=== PATIENT | female | born 1955 | race Caucasian/White ===

== ENCOUNTER → 2017-11-09 07:23 | Outpatient (CLI) | payer OTHER, SELFPAY ==
[2017-11-09 08:28] LABS: AST(SGOT) 22 U/L (15-37); Alanine Aminotransfer ALT/SGPT 25 U/L (13-56); Albumin, Serum 3.7 g/dL (3.2-5.0); Alkaline Phosphatase 92 U/L (45-117); Anion Gap 6 (5-15); BUN 22 mg/dL (7-18); BUN/Creat Ratio 26.6 RATIO (10-20); Calcium,Total 9.2 mg/dL (8.5-10.1); Chloride 107 mmol/L (98-107); Cholesterol 147 mg/dL (200); Creatinine, Serum 0.83 mg/dL (0.55-1.02); EST Glomerular Filtration Rate 74 mL/min (>60); Est Glom Filt Rate - Afr Amer 90 mL/min (>60); Globulin 3.6 g/dL (2.2-4.2); Glucose 103 mg/dL (74-106); High Density Lipoprotein 45 mg/dL; Potassium 4.7 mmol/L (3.5-5.1); Protein, Total 7.3 g/dL (6.4-8.2); Sodium Level 141 mmol/L (136-145); Triglycerides 119 mg/dL; Very Low Density Lipoprotein 24 mg/dL (5-40)
== END ==
PROVIDERS: Family Provider Family Medicine; PCP Family Medicine; Referring Provider Family Medicine; Visit Provider Family Medicine
DX: I10 Essential (primary) hypertension (principal); R10.9 Unspecified abdominal pain
CPT/HCPCS: 36415; 80053; 80061

== ENCOUNTER → 2017-11-10 08:56 | Outpatient (CLI) | payer OTHER, SELFPAY ==
--- NOTE | 2017-11-10 08:59 | US_ITS ---
STUDY: ABDOMINAL ULTRASOUND - RIGHT UPPER QUADRANT REASON FOR VISIT: Female, 62 years old. Right upper quadrant fullness and discomfort, particularly after meals. TECHNIQUE: Ultrasound evaluation of the right upper quadrant was performed with real-time and static perez-scale imaging. TECHNICAL QUALITY: Adequate. COMPARISON: None. FINDINGS: Liver: The liver measures 14.7 cm. There is increased echogenicity consistent with fatty infiltration. The bile ducts are within normal limits. There is hepatic color flow. The direction of portal flow is hepatopetal. There is no demonstrated mass lesion. Gallbladder: Normal distended gallbladder. The gallbladder wall measures 2.2 mm. There is a negative sonographic Rivers's sign. There is no pericholecystic fluid. There are multiple echogenic structures within the gallbladder, consistent with multiple gallstones. One of the largest is 11 mm in diameter. Common Bile Duct (C.B.D.): The common bile duct measures 2.5 mm. Pancreas: Normal size of the head, body and tail of the pancreas. There is normal echogenicity of the pancreas. There is no demonstrated pancreatic mass or cyst. Right Kidney: Normal size of the right kidney. The right kidney measures 12.4 x 7.0 x 4.5 cm. Normal renal cortex. The right cortex measures 1.4 cm. 1.7 x 1.5 1.2 cm cortical cyst is seen at the anterolateral upper pole. There is no right hydronephrosis. US/Gallbladder IMPRESSION: 1. Gallstones. No mural thickening of the gallbladder nor pericholecystic fluid indicate acute cholecystitis. No sign of bile duct obstruction. 2. Fatty infiltration of the liver. 3. Unremarkable pancreas. 4. 1.7 cm cortical cyst in the anterolateral upper pole of the right kidney. Electronically Signed: Bart Varma MD at 19:56 EDT , Service support ,
== END ==
PROVIDERS: Family Provider Family Medicine; PCP Family Medicine; Referring Provider Family Medicine; Visit Provider Family Medicine
DX: R10.9 Unspecified abdominal pain (principal)
CPT/HCPCS: 76705

== ENCOUNTER 2017-12-21 11:22 | Day surgery (SDC) | payer OTHER, SELFPAY ==
[2017-12-17 10:35] LABS: Hematocrit 38.7 % (37-47); Mean Corpuscular Volume 90.2 fL (81-99); Mean Platelet Vol. 10.9 fl (6.2-12.0); Platelet Count 290 K/mm3 (150-450); RBC Distribution Width SD 42.5 fl (35.1-43.9); Red Blood Count 4.29 M/mm3 (4.2-5.4); White Blood Count 5.8 K/mm3 (4.4-11.0)
[2017-12-17 10:37] LABS: Scan Indicated on CBC? Y/N NO
[2017-12-17 10:44] LABS: Prothrombin Time (Protime)PT. 13.4 SECONDS (11.7-14.9)
--- NOTE | 2017-12-21 | GALL_PTH ---
PATIENT: FRANK LAMB LOC: [facility] [place] U#:[id number] AGE/SX: 62/F ROOM: RE12/21/[address]: Dr. Elias Treadwell MD : 1955 BED: DIS: 12/21/2017 SPEC #: [id number] RECD: 12/21/17 15:10 STATUS: JONATHON MALIK #: [id number] JESSICA: 12/21/17 00:[address]: Elias Treadwell DEPT: SURGICAL PATHOLOGY RECD BY: Rocky Bhatti ENTERED: 12/21/17 15:10 SP TYPE: MAURICIO BRADLEY DR: DO Dr. Warren Guerrier MD Tissues: Gallbladder, NOS Procedures: Surgery Specimen Level III HEADER OPERATION: Laparoscopic, cholecystectomy with IOC PRE-OP DIAGNOSIS: Calculus of gallbladder, cholecystitis TISSUE SUBMITTED: Gallbladder MICROSCOPIC DIAGNOSIS Gallbladder: Chronic cholecystitis and cholelithiasis. SJ:sp 12/22/17 MICROSCOPIC DESCRIPTION Slides are reviewed. GROSS DESCRIPTION Received is one container labeled with the patient's name and designated gallbladder. The specimen consists of a gallbladder measuring 9 cm in length and up to 4 cm in diameter. The external surface is pink-rabago, smooth and glistening for the most part. Focally it is granular, hemorrhagic and contains cautery artifact. The gallbladder contains green-yellow mucoid bile and multiple irregular black stones measuring in aggregate 2 x 1 x 0.5 cm and 0.3 to 0.8 cm in greatest dimension. The mucosa is bile-stained and without any mass lesions. The gallbladder wall measures up to 0.2 cm in thickness. Rewards Consultant sections from the gallbladder and the cystic duct are submitted in one cassette. / BETTY:maddison 12/21/17 TC: 3 CPT: 95705
[2017-12-21 11:45] VITALS: BP 155/84; PULSE 79; RESP 16; TEMP 37.1; O2SAT 99; BMI 31.5
--- NOTE | 2017-12-21 13:41 | RAD_ITS ---
STUDY: INTRAOPERATIVE CHOLANGIOGRAM. REASON FOR EXAM: Female, 62 years old. Laparoscopic cholecystectomy. FLUOROSCOPY TIME (if supplied): (11.5 seconds) minutes/seconds TECHNIQUE: An intraoperative quadrant was performed by the surgeon. 3 images were obtained. COMPARISON: None. FINDINGS: The visualized intrahepatic biliary ducts are unremarkable. The common bile duct is unremarkable. No intraluminal filling defect is seen. There is free flow of contrast into the duodenum. RAD/Cholangiogram/ O R,Initial IMPRESSION: Unremarkable intraoperative cholangiogram. Electronically Signed: Brendon Grubbs MD at 14:56 EST Tel [phone], Service support ,
[2017-12-21] MEDS: Bupiv/Epi 0.5% Mpf 30 ML Vial (14:00)
--- NOTE | 2017-12-21 14:10 | OP.PCM_ITS ---
Problem List (1) Biliary colic Status: Acute Report of Operation Date of Procedure: 12/21/17 Pre-Operative Diagnosis: Biliary colic and cholelithiasis Post-Operative Diagnosis: Same Surgery/Procedure Performed:: Laparoscopic cholecystectomy with cholangiogram Specimen's removed: Gallbladder and contents Description of Procedure: After obtaining informed consent patient was brought back to the operating room. General anesthesia was induced. The abdomen was prepped and draped in usual sterile fashion. A small midline incision was made superior to the umbilicus and deepened to the level of fascia. The fascia was elevated and incised. Next the peritoneum was elevated and incised in the same fashion. Finger sweep was performed and the Mueller trocar was placed into the abdomen. The balloon was inflated. The abdomen was inflated to 15 mmHg. Next a camera was introduced into the abdomen and the abdomen was inspected. Next under direct visualization three 5-mm ports were placed one subxiphoid and 2 subcostal. Next the gallbladder was elevated and retracted toward the right shoulder. The peritoneum was stripped from the gallbladder. The infundibulum was located and retracted laterally. Next the triangle of Calot was dissected and the cystic duct and cystic artery were identified. Cholangiograms were performed. The Meyer catheter was used to clamp across the infundibulum and the needle was inserted into the gallbladder. Under fluoroscopy contrast was instilled into the gallbladder and the common duct, cystic duct as well as proximal hepatic ducts were identified. There was good filling of the duodenum. There were no filling defects noted in the common bile duct. The clamp was removed as well as the needle and the infundibulum was grasped once more. Three hemolock clips were placed across the cystic duct. The cystic duct was then divided leaving 2 clips on the stump. The cystic artery was clipped and divided in the same f ashion. The hook cautery was then used to take the gallbladder off of the gallbladder bed. There was some small leakage of bile from the gallbladder during removal from the liver bed. Hemostasis was obtained. Gallbladder fossa was irrigated and no active bleeding or bile leakage was noted. Next the camera switched to a 5 mm camera and introduced in the subxiphoid port. An Endopouch bag was placed through the umbilical port and the gallbladder was placed into it. The gallbladder was then removed through the umbilical incision. The camera was then reinserted through the umbilical port. The gallbladder fossa was inspected once more and noted to be hemostatic with no leaking bile. The abdomen was suctioned dry the 5 mm ports were removed under direct visualization. The umbilical port was then removed and the air was removed from the abdomen. Next using an 0 Vicryl suture the umbilical fascia was closed in a [id number] fashion. The umbilical port site was irrigated local anesthetic was administered to all the incisions. All the incisions were closed subcuticular 4-0 Monocryl sutures followed by Steri-Strips and dressings. The patient was awoken and taken to PACU in stable condition. - Admit VTE Documentation VTE Mechan Device Prophylaxis: SCD's
--- NOTE | 2017-12-21 14:12 | PCM.DC.GB ---
Discharge Diet: Light diet - advance as tolerated Discharge Activity: Return to Normal Activity, May Not Drive - for 2-3 days or while taking narcotic pain medicataions., - - Do not drive, work heavy equipment or sign legal documents for 24 hours. May shower in (days): 1 - with the bandage in place. Lifting Restrictions: 20 lbs for 2 weeks Additional Activity Instructions:: Pain medication may cause nausea. You should typically eat light foods as you take your pain medications. Pain medication may also cause constipation. If this is a problem for you, please discuss with your doctor. Call your doctor if your incision/area has: Continuous Slow Oozing, Sudden Increased Bleeding, Increased Pain/ Swelling, Increased Redness, Foul Smelling Discharge, Fever of 101 or Higher Call your doctor if you observe: Fever of 101 or Higher Suture Line Care: Avoid Pulling/Pushing, Avoid Pinching/Bending Additional Dressing/Incision Instructions:: Leave operative bandaids on for 2 days. When you remove dressing, leave Steri-Strips on until your follow-up appointment, or until the Steri-Strips fall off on their own. Allergies/Adverse Reactions: Allergies sulfamethoxazole [From Bactrim] Allergy (Verified 12/21/17 11:45) Hives trimethoprim [From Bactrim] Allergy (Verified 12/21/17 11:45) Hives morphine Adverse Reaction (Verified 12/21/17 11:45) Low blood pressure Medications to take at Discharge lisinopril 20 mg tablet 20 mg PO DAILY #90 tab 11/05/17 simvastatin 20 mg tablet 20 mg PO QHS #90 tab 11/05/17 omeprazole 20 mg tablet,delayed release 20 mg PO DAILY #30 tab 11/23/17 Hydrocodone/Acetaminophen [[place] 5-325 Tablet] 1 - 2 tab PO Q6H PRN PRN 7 Days #30 tablet 12/21/17 The following prescriptions were given: Hydrocodone/Acetaminophen [[place] 5-325 Tablet] 1 - 2 tab PO Q6H PRN PRN 7 Days #30 tablet PRN Reason: Pain Orders to be completed after discharge: 12 Lead EKG [[facility]] Time Frame: 12/17/17, Location: None Selected Primary Care Physician: Jeancarlos Sanchez DO [Primary Care Provider] - Test Results: Test results from this visit will be discussed in further detail at your follow-up appointment, if applicable. Please Follow Up With: Elias Treadwell MD When: Please call to schedule 2 week follow up appointment. [phone]
[2017-12-21 14:21] VITALS: BP 132/80; BP 155/84; PULSE 81; RESP 16; TEMP 36.2; O2SAT 99
[2017-12-21 14:30] VITALS: BP 119/65; BP 155/84; PULSE 73; RESP 16; O2SAT 94
[2017-12-21 14:45] VITALS: BP 108/56; BP 155/84; PULSE 54; RESP 16; O2SAT 96
[2017-12-21 14:55] VITALS: BP 155/84; BP 99/59; PULSE 60; RESP 16; TEMP 36.3; O2SAT 97
[2017-12-21] MEDS: HYDROcodone Bitartrate/Apap 5/325 Tablet PO (15:20)
[2017-12-21 17:17] VITALS: BP 114/59; BP 155/84; PULSE 57; RESP 16; TEMP 36.8; O2SAT 95
== END 2017-12-21 17:27 | disposition home or self-care (01) ==
LOC: SDC 11:23 → AC 11:24
PROVIDERS: Anesthesiology; Family Provider Family Medicine; PCP Family Medicine; Referring Provider Surgery; Visit Provider Surgery
PROC: (CPT 47610; principal; 2017-12-21 12:40)
DX: K80.10 Calculus of gallbladder with chronic cholecystitis without obstruction (principal); I10 Essential (primary) hypertension; E78.00 Pure hypercholesterolemia, unspecified; K21.9 Gastro-esophageal reflux disease without esophagitis; F32.9 Major depressive disorder, single episode, unspecified; Z79.899 Other long term (current) drug therapy; Z87.891 Personal history of nicotine dependence
CPT/HCPCS: 47563; 36415; 74300; 76000; 85027; 85610; 85730; 88304; J7120; J2405

== ENCOUNTER → 2018-09-07 10:07 | Outpatient (CLI) | payer OTHER, SELFPAY ==
[2018-09-07 09:48] VITALS: BMI 31.5
[2018-09-07 12:57] LABS: ALB/GLOB Ratio 1.1 RATIO (0.9-2.4); AST(SGOT) 17 U/L (15-37); Alanine Aminotransfer ALT/SGPT 29 U/L (13-56); Albumin, Serum 3.9 g/dL (3.2-5.0); Alkaline Phosphatase 95 U/L (45-117); Anion Gap 8 (5-15); BUN 20 mg/dL (7-18); BUN/Creat Ratio 26.5 RATIO (10-20); Calcium,Total 9.1 mg/dL (8.5-10.1); Chloride 107 mmol/L (98-107); Cholesterol 178 mg/dL (200); Creatinine, Serum 0.75 mg/dL (0.55-1.02); EST Glomerular Filtration Rate 82 mL/min (>60); Est Glom Filt Rate - Afr Amer 100 mL/min (>60); Globulin 3.6 g/dL (2.2-4.2); Glucose 94 mg/dL (74-106); High Density Lipoprotein 51 mg/dL; Potassium 4.5 mmol/L (3.5-5.1); Protein, Total 7.5 g/dL (6.4-8.2); Sodium Level 140 mmol/L (136-145); Triglycerides 104 mg/dL; Very Low Density Lipoprotein 21 mg/dL (5-40)
== END ==
PROVIDERS: Family Provider Family Medicine; PCP Family Medicine; Visit Provider Family Medicine
DX: I10 Essential (primary) hypertension (principal); E78.00 Pure hypercholesterolemia, unspecified
CPT/HCPCS: 36415; 80053; 80061

== ENCOUNTER → 2018-09-30 07:57 | Outpatient (CLI) | payer OTHER, SELFPAY ==
[2018-09-07 09:48] VITALS: BMI 31.5
--- NOTE | 2018-09-30 08:01 | BI_ITS ---
MAMMOGRAPHY - BILATERAL SCREENING 3-D TOMOSYNTHESIS REASON FOR EXAM: Female, 63 years old. Bilateral Screening 3-D tomosynthesis PERTINENT HISTORY: Paternal aunt with breast cancer.. TECHNIQUE: 2-D mammograms and 3-D Tomosynthesis of the breast (s) were performed. CAD was performed. COMPARISON: 02/25/2017, 12/19/2015, 10/25/2013. FINDINGS: The breast composition is composed of scattered fibroglandular density. Scattered benign calcifications are seen. No dense spiculated masses or suspicious microcalcifications are identified. No architectural distortion is identified. There is no skin thickening or retraction. There has been no significant change since the prior study. BI/SCREEN MAMM (CAD) W/MAIA BILAT IMPRESSION: No mammographic signs of malignancy. Routine yearly mammograms recommended. ASSESSMENT CATEGORY: BIRADS Category 2: Benign. A letter regarding these results will be sent to the patient by the facility within 30 days. FOLLOW UP RECOMMENDATION: Yearly follow up mammogram recommended. (A) Approximately 10% of breast cancers are not detected by mammography. A normal mammogram should not delay biopsy of a clinically suspicious abnormality. Electronically Signed: Roni Bui MD at 15:44 EDT Tel [phone], Service support ,
== END ==
PROVIDERS: Family Provider Family Medicine; PCP Family Medicine; Referring Provider Family Medicine; Visit Provider Family Medicine
DX: Z12.31 Encounter for screening mammogram for malignant neoplasm of breast (principal); Z80.3 Family history of malignant neoplasm of breast
CPT/HCPCS: 77063; 77067

== ENCOUNTER → 2018-12-01 07:50 | Outpatient (CLI) | payer OTHER, SELFPAY ==
[2018-11-11 10:03] VITALS: BMI 31.5
--- NOTE | 2018-12-01 07:52 | RAD_ITS ---
STUDY: X-RAY - LUMBAR SPINE REASON FOR EXAM: Female, 63 years old. Low back pain on and off for one and a half year more severe within the last 3 months. Right leg pain. TECHNIQUE: 3 view(s) of the lumbar spine were obtained. COMPARISON: None FINDINGS: Normal lumbar lordosis. There is scoliosis of the lumbar spine, convexity to the left. There is a normal alignment of the vertebrae. There is diffuse demineralization with multi-level endplate spondylosis. There is mild narrowing of disc space from L3-L4 to L5-S1. There is no demonstrated fracture. There is facet hypertrophy at L4-L5 and L5-S1. There is atherosclerotic calcification of the abdominal aorta without a demonstrated aneurysm. RAD/Lumbar Spine 2 or 3 Views IMPRESSION: Diffuse osteopenia along with degenerative disease, more significant from L3-L4 to L5-S1. No acute fracture or spondylolisthesis. Electronically Signed: Bere Moore MD at 0:28 EDT , Service support ,
== END ==
PROVIDERS: Family Provider Family Medicine; PCP Family Medicine; Referring Provider Family Medicine; Visit Provider Family Medicine
DX: M54.5 Low back pain (principal)
CPT/HCPCS: 72100

== ENCOUNTER → 2018-12-07 13:18 | Outpatient (CLI) | payer OTHER, SELFPAY ==
[2018-11-11 10:03] VITALS: BMI 31.5
--- NOTE | 2018-12-07 13:28 | BD_ITS ---
STUDY: DUAL ENERGY X-RAY ABSORPTIOMETRY / DXA REASON FOR EXAM: Female, 63 years old. Early menopause. Loss of height. TECHNIQUE: Bone Mineral Density (BMD) measurements of lumbar spine and bilateral hips were obtained. COMPARISON: Comparison is made with prior examination dated November 28, 2014. FINDINGS: Lumbar Spine (L1-L4): g/cm2 (0.925) / T-score (-2.1) / Z-score (-0.7) Findings are suggestive of osteopenia with a high fracture risk. Left Femur Total: g/cm2 (0.910) / T-score (-0.8) / Z-score (0.3) Left Femoral Neck: g/cm2 (0.865) / T-score (-1.2) / Z-score (0.1) Right Femur Total: g/cm2 (0.901) / T-score (-0.8) / Z-score (0.3) Right Femoral Neck: g/cm2 (0.878) / T-score (-1.1) / Z-score (0.2) The T-Scores on the most recent prior examination were: Lumbar Spine (L1-L4): There has been worsening of bone density since the previous examination. Left Femur Total: which represents a worsening of 3.6%. Right Femur Total: which represents a worsening of 4.8%. BD/Dexa Bone Density Study IMPRESSION: The patient is considered osteopenic as outlined below according to World Kian Organization (WHO) criteria with a high fracture risk. There has been worsening of bone density since the previous examination. Reference Information: The T-score is the number of standard deviations above or below the standard which is normal for young adults at their peak bone mineral density. The World Health Organization (WHO) interprets the T-scores as follows: Above -1 Normal bone density Between -1 and -2.5 Osteopenia Equal to / or below -2.5 Osteoporosis As a practical clinical guideline, osteopenia may be graded as follows: Mild -1 through -1.5 Moderate -1.6 through -2.0 Severe -2.1 through -2.4 The Z-score is the number of standard deviations above or below age-matched controls. A Z-score of less than -1.5 would be considered abnormal. References: 1. NIH Osteoporosis and Related Bone Diseases http://www.osteo.org 2. International Society for Clinical Densitometry http://www.iscd.org 3. National Osteoporosis Foundation http://www.nof.org Electronically Signed: Brendon Grubbs, at 15:42 EDT , Service support ,
== END ==
PROVIDERS: Family Provider Family Medicine; PCP Family Medicine; Referring Provider Family Medicine; Visit Provider Family Medicine
DX: M81.0 Age-related osteoporosis without current pathological fracture (principal)
CPT/HCPCS: 77080

== ENCOUNTER → 2019-09-13 12:19 | Outpatient (CLI) | payer OTHER, SELFPAY ==
[2019-09-13 11:55] VITALS: BMI 31.5
[2019-09-13 15:19] LABS: Vitamin D,25 Hydroxy 22.2 ng/mL
[2019-09-13 15:23] LABS: ALB/GLOB Ratio 1.2 RATIO (0.9-2.4); AST(SGOT) 20 U/L (15-37); Alanine Aminotransfer ALT/SGPT 31 U/L (13-56); Albumin, Serum 4.2 g/dL (3.2-5.0); Alkaline Phosphatase 74 U/L (45-117); Anion Gap 3 (5-15); BUN 18 mg/dL (7-18); BUN/Creat Ratio 21.5 RATIO (10-20); Calcium,Total 9.2 mg/dL (8.5-10.1); Chloride 109 mmol/L (98-107); Cholesterol 165 mg/dL (200); Creatinine, Serum 0.84 mg/dL (0.55-1.02); EST Glomerular Filtration Rate 73 mL/min (>60); Est Glom Filt Rate - Afr Amer 88 mL/min (>60); Globulin 3.5 g/dL (2.2-4.2); Glucose 92 mg/dL (74-106); High Density Lipoprotein 51 mg/dL; Potassium 4.6 mmol/L (3.5-5.1); Protein, Total 7.7 g/dL (6.4-8.2); Sodium Level 140 mmol/L (136-145); Triglycerides 92 mg/dL; Very Low Density Lipoprotein 18 mg/dL (5-40)
== END ==
PROVIDERS: PCP Family Medicine; Referring Provider Family Medicine; Visit Provider Family Medicine
DX: I10 Essential (primary) hypertension (principal); E78.00 Pure hypercholesterolemia, unspecified; M54.5 Low back pain; M81.0 Age-related osteoporosis without current pathological fracture
CPT/HCPCS: 36415; 80053; 80061; 82306

== ENCOUNTER → 2019-09-15 07:59 | Outpatient (CLI) | payer OTHER, SELFPAY ==
[2019-09-13 12:27] VITALS: BMI 31.5
--- NOTE | 2019-09-15 08:02 | RAD_ITS ---
STUDY: X-RAY - LUMBAR SPINE REASON FOR EXAM: Female, 64 years old. CHRONIC LBP, NKI TECHNIQUE: 5 view(s) of the lumbar spine were obtained. COMPARISON: 12/01/2018 FINDINGS: Normal lumbar lordosis. There is a mild levoscoliosis. There is a normal alignment of the vertebrae. There is multilevel endplate spondylosis of the lumbar vertebrae. Mild disc space narrowing. There is no demonstrated fracture. There is atherosclerotic calcification of the abdominal aorta without a demonstrated aneurysm. RAD/L/S Spine Min 4 Views IMPRESSION: Degenerative changes of the spine, as detailed above. Mild levoscoliosis Electronically Signed: Bart Blunt MD at 17:17 EDT , Service support ,
== END ==
PROVIDERS: PCP Family Medicine; Referring Provider Family Medicine; Visit Provider Family Medicine
DX: M54.5 Low back pain (principal)
CPT/HCPCS: 72110

== ENCOUNTER → 2019-12-01 09:10 | Outpatient (CLI) | payer OTHER, SELFPAY | PROVIDERS: PCP Family Medicine; Referring Provider Family Medicine; Visit Provider Family Medicine | DX: U07.1 COVID-19 (principal) | CPT/HCPCS: 87635; C9803; U0003 ==

== ENCOUNTER → 2020-04-16 08:37 | Outpatient (CLI) | payer OTHER, SELFPAY ==
[2020-04-03 11:06] VITALS: BMI 33.8
--- NOTE | 2020-04-16 08:39 | BI_ITS ---
MAMMOGRAPHY - BILATERAL SCREENING REASON FOR EXAM: Female, 64 years old. Routine annual screening examination. PERTINENT HISTORY: AUNT AGE 40S BILAT MOLES MARKED TECHNIQUE: Digital bilateral breast maia (3D mammographic acquisition) in the CC and MLO projections. 2-D mediolateral oblique (MLO) and craniocaudad (CC) views of both breasts were obtained. CAD: Full Field Digital Mammography with Computer Added Detection was performed. COMPARISON: 09/30/2018 and 12/19/2015 FINDINGS: Breast Composition: There are scattered areas of fibroglandular density. There are no dominant masses or suspicious calcifications. No other significant abnormalities are identified. BI/SCRN MAMM (CAD)W/MAIA BILAT IMPRESSION: Stable bilateral screening mammogram. Yearly follow-up mammogram recommended. (A) ASSESSMENT CATEGORY: BIRADS Category 2: Benign. A letter regarding these results will be sent to the patient by the facility within 30 days. Approximately 10% of breast cancers are not detected by mammography. A normal mammogram should not delay biopsy of a clinically suspicious abnormality. [id number] Electronically Signed: Ervin Irene MD at 16:43 EST Tel , Service support ,
== END ==
PROVIDERS: PCP Family Medicine; Referring Provider Family Medicine; Visit Provider Family Medicine
DX: Z12.31 Encounter for screening mammogram for malignant neoplasm of breast (principal)
CPT/HCPCS: 77063; 77067

== ENCOUNTER → 2020-05-11 10:27 | Outpatient (CLI) | payer MEDICARE, OTHER, SELFPAY ==
[2020-05-10 14:46] VITALS: BMI 33.6
== END ==
PROVIDERS: PCP Family Medicine; Referring Provider Family Medicine; Visit Provider Family Medicine
DX: Z20.828 Contact with and (suspected) exposure to other viral communicable diseases (principal)
CPT/HCPCS: 87635; U0002

== ENCOUNTER → 2020-10-02 12:27 | Outpatient (CLI) | payer MEDICARE, OTHER, SELFPAY ==
[2020-10-05 15:44] LABS: HPV Reflexed? NOT INDICATED
== END ==
PROVIDERS: PCP Family Medicine; Referring Provider Family Medicine; Visit Provider Family Medicine
DX: Z01.419 Encounter for gynecological examination (general) (routine) without abnormal findings (principal)
CPT/HCPCS: 88175; G0145

== ENCOUNTER → 2020-12-11 09:22 | Outpatient (CLI) | payer MEDICARE, OTHER, SELFPAY ==
--- NOTE | 2020-12-11 09:30 | BD_ITS ---
STUDY: DUAL ENERGY X-RAY ABSORPTIOMETRY / DXA REASON FOR EXAM: Female, 65 years old. Osteopenia. TECHNIQUE: Bone Mineral Density (BMD) measurements of lumbar spine and bilateral hips were obtained. COMPARISON: Comparison is made with prior study 12/07/2018. FINDINGS: Lumbar Spine (L1-L4): g/cm2 (0.808) / T-score (-1.9) / Z-score (-0.2) Findings are suggestive of osteopenia with a moderate fracture risk. Left Femur Total: g/cm2 (0.898) / T-score (-0.4) / Z-score (0.9) Left Femoral Neck: g/cm2 (0.689) / T-score (-1.4) / Z-score (0.1) Right Femur Total: g/cm2 (0.878) / T-score (-0.5) / Z-score (0.7) Right Femoral Neck: g/cm2 (0.695) / T-score (-1.4) / Z-score (0.1) The T-Scores on the most recent prior examination were: Lumbar Spine (L1-L4): There has been improvement of bone density since the previous examination. Left Femur Total: which represents an improvement of 6%. Right Femur Total: which represents an improvement of 4.8%. BD/Dexa Bone Density Study IMPRESSION: The patient is considered osteopenic as outlined below according to World Kian Organization (WHO) criteria with a moderate fracture risk. There has been improvement of bone density since the previous examination. Reference Information: The T-score is the number of standard deviations above or below the standard which is normal for young adults at their peak bone mineral density. The World Health Organization (WHO) interprets the T-scores as follows: Above -1 Normal bone density Between -1 and -2.5 Osteopenia Equal to / or below -2.5 Osteoporosis As a practical clinical guideline, osteopenia may be graded as follows: Mild -1 through -1.5 Moderate -1.6 through -2.0 Severe -2.1 through -2.4 The Z-score is the number of standard deviations above or below age-matched controls. A Z-score of less than -1.5 would be considered abnormal. References: 1. NIH Osteoporosis and Related Bone Diseases www osteo.org 2. International Society for Clinical Densitometry www iscd.org 3. National Osteoporosis Foundation www nof.org Electronically Signed: Brendon Grubbs MD at 15:44 EDT , Service support ,
== END ==
PROVIDERS: PCP Family Medicine; Referring Provider Family Medicine; Visit Provider Family Medicine
DX: M81.0 Age-related osteoporosis without current pathological fracture (principal)
CPT/HCPCS: 77080

== ENCOUNTER 2021-02-21 09:14 | Outpatient (CLI) | payer MEDICARE, OTHER, SELFPAY | END 2021-02-21 23:59 | disposition short-term general hospital (02) | LOC: LABSPEC 09:16 | PROVIDERS: PCP Family Medicine; Referring Provider Physician Assistant; Visit Provider Physician Assistant | DX: U07.1 COVID-19 (principal) | CPT/HCPCS: 87635; U0003; U0005 ==

== ENCOUNTER 2021-04-02 10:36 | Outpatient (CLI) | payer MEDICARE, OTHER, SELFPAY ==
[2021-04-02 13:00] LABS: AST(SGOT) 15 U/L (15-37); Alanine Aminotransfer ALT/SGPT 26 U/L (13-56); Albumin, Serum 3.8 g/dL (3.2-5.0); Alkaline Phosphatase 75 U/L (45-117); Anion Gap 7 (5-15); BUN 19 mg/dL (7-18); BUN/Creat Ratio 26.5 RATIO (10-20); Calcium,Total 8.8 mg/dL (8.5-10.1); Chloride 108 mmol/L (98-107); Cholesterol 160 mg/dL (200); Creatinine, Serum 0.72 mg/dL (0.55-1.02); EST Glomerular Filtration Rate 87 mL/min (>60); Est Glom Filt Rate - Afr Amer 105 mL/min (>60); Globulin 3.7 g/dL (2.2-4.2); Glucose 99 mg/dL (74-106); High Density Lipoprotein 47 mg/dL; Potassium 4.6 mmol/L (3.5-5.1); Protein, Total 7.5 g/dL (6.4-8.2); Sodium Level 140 mmol/L (136-145); Triglycerides 103 mg/dL; Very Low Density Lipoprotein 21 mg/dL (5-40)
== END 2021-04-02 23:59 | disposition home or self-care (01) ==
LOC: BIMLAB 10:38
PROVIDERS: PCP Family Medicine; Referring Provider Family Medicine; Visit Provider Family Medicine
DX: I10 Essential (primary) hypertension (principal)
CPT/HCPCS: 36415; 80053; 80061

== ENCOUNTER 2021-05-21 10:13 | Outpatient (CLI) | payer MEDICARE, OTHER, SELFPAY ==
--- NOTE | 2021-05-21 10:15 | BI_ITS ---
MAMMOGRAPHY - BILATERAL SCREENING REASON FOR EXAM: Female, 65 years old. Routine annual screening examination. PERTINENT HISTORY: Aunt with breast cancer. TECHNIQUE: Digital bilateral breast maia (3D mammographic acquisition) in the CC and MLO projections. 2-D mediolateral oblique (MLO) and craniocaudad (CC) views of both breasts were obtained. CAD: Full Field Digital Mammography with Computer Added Detection was performed. COMPARISON: Comparison is made with prior study 04/16/2020 and 09/30/2018. FINDINGS: Breast Composition: There are scattered areas of fibroglandular density. There are no dominant masses or suspicious calcifications. No other significant abnormalities are identified. There has been no significant change since the prior study. BI/SCRN MAMM (CAD)W/MAIA BILAT IMPRESSION: Stable bilateral screening mammogram. Yearly follow-up mammogram recommended. (A) ASSESSMENT CATEGORY: BIRADS Category 1: Negative. A letter regarding these results will be sent to the patient by the facility within 30 days. Approximately 10% of breast cancers are not detected by mammography. A normal mammogram should not delay biopsy of a clinically suspicious abnormality. [id number] Electronically Signed: Brendon Grubbs MD at 11:50 EDT ,
== END 2021-05-21 23:59 | disposition home or self-care (01) ==
LOC: OPBI 10:14
PROVIDERS: PCP Family Medicine; Referring Provider Family Medicine; Visit Provider Family Medicine
DX: Z12.31 Encounter for screening mammogram for malignant neoplasm of breast (principal)
CPT/HCPCS: 77063; 77067

== ENCOUNTER → 2022-05-23 | Outpatient (CLI) | payer MEDICARE, OTHER, SELFPAY ==
[2022-05-23 12:52] LABS: Anion Gap 4 (5-15); BUN 21 mg/dL (7-18); BUN/Creat Ratio 27.6 RATIO (10-20); Calcium,Total 9.1 mg/dL (8.5-10.1); Chloride 108 mmol/L (98-107); Creatinine, Serum 0.76 mg/dL (0.55-1.02); EST Glomerular Filtration Rate 81 mL/min (>60); Est Glom Filt Rate - Afr Amer 98 mL/min (>60); Glucose 92 mg/dL (74-106); Potassium 4.6 mmol/L (3.5-5.1); Sodium Level 139 mmol/L (136-145)
== END | disposition home or self-care (01) ==
LOC: BIMLAB 11:38
PROVIDERS: PCP Family Medicine; Referring Provider Nurse Practitioner Family; Visit Provider Nurse Practitioner Family
DX: I10 Essential (primary) hypertension (principal)
CPT/HCPCS: 36415; 80048

== ENCOUNTER 2022-07-18 00:13 | Emergency (ER) | payer MEDICARE, OTHER, SELFPAY ==
[2022-07-18 00:14] VITALS: BP 187/83; PULSE 75; RESP 16; TEMP 36; O2SAT 96; BMI 34.1
--- NOTE | 2022-07-18 00:23 | EDS_ITS ---
HPI History of Present Illness Chief Complaint: Overdose [facility] Medical History Chronic headaches Depression High blood pressure High cholesterol Influenza A Home Medications denosumab 60 mg/mL subcutaneous syringe (Prolia) 60 mg subcut [id number] #1 mL 03/16/20 [Rx Last Taken Unknown] fluticasone propionate 50 mcg/actuation nasal spray,suspension (Flonase Allergy Relief) 2 spray intranasal DAILY PRN congestion, allergies #16 grams 12/04/20 [Rx Last Taken Unknown] simvastatin 20 mg tablet 20 mg PO QHS #90 tabs 10/03/21 [Rx Last Taken Unknown] pantoprazole 40 mg tablet,delayed release 40 mg PO QHS #90 tabs 02/14/22 [Rx Last Taken Unknown] sertraline 100 mg tablet See Rx Instructions .Route .COMPLEX #90 tabs 04/02/22 [Rx Last Taken Unknown] carvedilol 3.125 mg tablet (Coreg) 3.125 mg PO BID #60 tabs 05/09/22 [Rx Last Taken Unknown] lisinopril 40 mg tablet 40 mg PO DAILY #90 tabs 05/09/22 [Rx Last Taken Unknown] lorazepam 1 mg tablet 1 mg PO QHS PRN anxiety #90 tabs 07/17/22 [Rx Last Taken Unknown] Allergy/AdvReac Type Severity Reaction Status Date / Time sulfamethoxazole Allergy Hives Verified 07/18/22 00:18 [From Bactrim] trimethoprim [From Bactrim] Allergy Hives Verified 07/18/22 00:18 morphine AdvReac Low blood Verified 07/18/22 00:18 pressure Family History Mother Diabetes Heart disease Hypertension Myocardial infarction Father Myocardial infarction Brother Hypertension Diabetes Sister Diabetes Hypertension Grandfather Alzheimer's dementia Cancer Grandmother Fabiana Gehrigs disease Grandfather Heart disease Aunt Breast cancer Surgical History History of colonoscopy History of gynecologic surgery History of orthopedic surgery History of tubal ligation Social History Smoking Status: Former smoker alcohol intake: never substance use type: does not use what type of physical activity do you participate in: none EXAM Physical Exam Const Vital Signs: 07/18/22 00:14 07/18/22 00:17 Temperature 96.8 F L Temperature Source Temporal Pulse Rate 75 Respiratory Rate 16 Respiratory Effort Normal Non-Labored Respiratory Pattern Normal Blood Pressure 187/83 H Blood Pressure Mean 117 Pulse Ox 96 Oxygen Delivery Method Room Air [facility] N[place] Medical decision making narrative: HISTORY OF PRESENT ILLNESS: 67-year-old female here with concern for accidental overdose. Patient states she took one 40 mg pill of lisinopril approximately 11:45 PM. This approximately 30 minutes prior to arrival. She states she is concerned that she may have overdosed on her lisinopril. She denies any syncope, lightheadedness, fatigue, chest pain, shortness of breath. There is no suicidal ideation, homicidal ideation endorsed REVIEW OF SYSTEMS: Pertinent positives: None Pertinent negatives: Lightheadedness, fatigue, chest pain, syncope PHYSICAL EXAM: Nursing triage notes reviewed, Vital signs reviewed Constitutional: please see mdm HENT: MMM Eyes: Pupils equal round and reactive to light, Extraocular muscles intact Neck: No stridor, no JVD, full neck ROM Lungs: Clear to auscultation, No wheezing or rales. No increased work of breathing, no conversational dyspnea, no accessory muscle use, no nasal flaring. No respiratory distress noted Heart: Regular rate and rhythm, No murmurs, No rubs and No gallops, 2+ distal pulses (radial, femoral, posterior tibial) in all extremities Abdomen: Soft, there is no tenderness, rigidity, rebound or guarding, no obvious peritoneal signs, no palpable pulsatile abdominal masses, no auscultated abdominal bruit : No CVAT Extremities: No edema Neuro: No focal neurological deficits, cranial nerves II through XII intact, 5/5 strength in all extremities. Intact sensation to light touch in all extremities, 2+ reflexes bilateral patella tendons. Normal gait. No ataxia. Skin: No rash or lesions noted MEDICAL DECISION MAKING: Chief Complaint: Accidental overdose External records reviewed: No recent ED visits or hospitalizations Factors affecting care: Hypertension, hyperlipidemia Social determinants of health: Poor health literacy History obtained from others: None Consults: None ALL IMAGES (IF OBTAINED) HAVE BEEN PERSONALLY REVIEWED AND INTERPRETED BY MYSELF. [facility] Narrative: Patient was hemodynamically stable, afebrile, nontoxic-appearing. No signs of hypotension or other side effect from lisinopril. Peak lisinopril onset of action per Caty comp is 1 hour. Duration is 24 hours. Half time is 12 hours. L D50 is greater than 20,000 mg per [email or web address]. Patient is hemodynamically stable here and is appropriate for discharge home. I did consult poison control. Poison control recommended no acute intervention necessary. Can discharge with poison control instructions. The patient and/or family, caregivers express understanding. The patient and/or family, caregivers agrees with the plan. Total critical care time today provided was at least 0 minutes. This excludes separately billable procedures. Critical care time (if documented) is secondary to the patient having high probability of clinically significant/life threatening deterioration in the patient's condition which required my urgent intervention. Shared decision making: I will have a discussion with the patient and or visitors regarding risk/benefits of further testing or admission. They will be made aware of of the risk/benefits inherent in this decision they will be given the opportunity to voice understanding. Discharge Plan Triage Chief Complaint: Overdose ED Provider: Yaya Mariscal Dx/Rx/DC Orders Clinical Impression: Accidental overdose Instructions: ED Accidental Ingestion ... Prescriptions: No Action Prolia 60 mg/mL syringe 60 mg SC [id number] Qty: 1 2RF fluticasone propionate [Flonase Allergy Relief] 50 mcg/actuation spray,suspension 2 spray intranasal DAILY PRN (Reason: congestion, allergies) Qty: 16 2RF Rx Instructions: administer into each nostril simvastatin 20 mg tablet 20 mg PO QHS Qty: 90 3RF pantoprazole 40 mg tablet,delayed release (DR/EC) 40 mg PO QHS Qty: 90 0RF sertraline 100 mg tablet See Rx Instructions .ROUTE .COMPLEX Qty: 90 0RF Dose Instruction: TAKE 1 AND 1/2 TABLET ORALLY DAILY FOR DEPRESSION AT BEDTIME Rx Instructions: TAKE 1 AND 1/2 TABLET ORALLY DAILY FOR DEPRESSION AT BEDTIME carvedilol [Coreg] 3.125 mg tablet 3.125 mg PO BID Qty: 60 2RF Rx Instructions: must administer with a meal/food lisinopril 40 mg tablet 40 mg PO DAILY Qty: 90 3RF lorazepam 1 mg tablet 1 mg PO QHS PRN (Reason: anxiety) Qty: 90 0RF Primary Care Provider: Jeancarlos Sanchez Referrals: Jeancarlos Sanchez, [Primary Care Provider] - Activity Restrictions/Additional Instructions: Thank you for trusting us with your care today! Please take all medicine as prescribed. If you have a question about a future ingestion or accidental overdose please call poison control at [phone] for initial instruction about how to manage the situation. Please return to the emergency department if your symptoms change or worsen. Specifically if you develop lightheadedness, fatigue, chest pain, palpitations, shortness of breath Please follow with your primary care physician for further outpatient evaluation and management. Disposition Disposition: Home, Self Care
[2022-07-18 01:20] VITALS: BP 133/67
== END 2022-07-18 01:34 | disposition home or self-care (01) ==
PROVIDERS: Emergency Provider Emergency Medicine; PCP Family Medicine; Visit Provider Emergency Medicine
DX: T46.4X1A Poisoning by angiotensin-converting-enzyme inhibitors, accidental (unintentional), initial encounter (principal); I10 Essential (primary) hypertension; E78.00 Pure hypercholesterolemia, unspecified; Z79.899 Other long term (current) drug therapy; Z87.891 Personal history of nicotine dependence
CPT/HCPCS: 99282

== ENCOUNTER 2022-08-02 11:28 | Emergency (ER) | payer MEDICARE, OTHER, SELFPAY ==
[2022-08-02 11:28] VITALS: BP 137/87; PULSE 88; RESP 14; TEMP 36.5; O2SAT 96; BMI 32.1
--- NOTE | 2022-08-02 12:00 | ED.VIS.GI ---
HPI HPI - GI History of Present Illness Chief Complaint: Diarrhea Narrative Narrative: 67-year-old female presenting with diarrhea. She has had this for a couple of days. She has some abdominal cramping and is fairly diffuse. She also admits to some dyspepsia. She does not think she is eating anything out of the ordinary. She feels like she has something viral. She denies cough, nasal congestion, rhinorrhea. She has not any fevers. No urinary or vaginal complaints. She states she can eat and does not have any difficulty but she has not been eating because every time she eats she has diarrhea. No recent antibiotic use. [facility] Medical History Chronic headaches Depression High blood pressure High cholesterol Influenza A Home Medications denosumab 60 mg/mL subcutaneous syringe (Prolia) 60 mg subcut [id number] #1 mL 03/16/20 [Rx Last Taken Unknown] fluticasone propionate 50 mcg/actuation nasal spray,suspension (Flonase Allergy Relief) 2 spray intranasal DAILY PRN congestion, allergies #16 grams 12/04/20 [Rx Last Taken Unknown] simvastatin 20 mg tablet 20 mg PO QHS #90 tabs 10/03/21 [Rx Last Taken Unknown] pantoprazole 40 mg tablet,delayed release 40 mg PO QHS #90 tabs 02/14/22 [Rx Last Taken Unknown] sertraline 100 mg tablet See Rx Instructions .Route .COMPLEX #90 tabs 04/02/22 [Rx Last Taken Unknown] carvedilol 3.125 mg tablet (Coreg) 3.125 mg PO BID #60 tabs 05/09/22 [Rx Last Taken Unknown] lisinopril 40 mg tablet 40 mg PO DAILY #90 tabs 05/09/22 [Rx Last Taken Unknown] lorazepam 1 mg tablet 1 mg PO QHS PRN anxiety #90 tabs 07/17/22 [Rx Last Taken Unknown] ondansetron 4 mg disintegrating tablet 4 mg PO Q8H PRN PRN Nausea #20 tabs 08/02/22 [Rx Last Taken Unknown] Allergy/AdvReac Type Severity Reaction Status Date / Time sulfamethoxazole Allergy Hives Verified 08/02/22 11:29 [From Bactrim] trimethoprim [From Bactrim] Allergy Hives Verified 08/02/22 11:29 morphine AdvReac Low blood Verified 08/02/22 11:29 pressure Family History Mother Diabetes Heart disease Hypertension Myocardial infarction Father Myocardial infarction Brother Hypertension Diabetes Sister Diabetes Hypertension Grandfather Alzheimer's dementia Cancer Grandmother Fabiana Gehrigs disease Grandfather Heart disease Aunt Breast cancer Surgical History History of colonoscopy History of gynecologic surgery History of orthopedic surgery History of tubal ligation Social History Smoking Status: Former smoker alcohol intake: never substance use type: does not use what type of physical activity do you participate in: none ROS ROS ED Review of Systems ROS Unobtainable: Denies due to encephalopathy Constitutional Constitutional ED: Denies chills or fever(s) ENT ENT ED: Denies rhinorrhea or sore throat Cardiovascular Cardiovascular: Denies chest pain or palpitations Respiratory/Chest Respiratory/Chest: Denies cough or dyspnea Gastrointestinal Gastrointestinal: Reports diarrhea; Denies abdominal pain or melena Genitourinary Genitourinary ED: Denies dysuria or hematuria Musculoskeletal Musculoskeletal: Denies arthralgias or back pain Integumentary Denies abscess or Abrasions Neurologic Neurologic: Denies headache(s) or paresthesias Psychiatric Psychiatric: Denies anxiety or depression Endocrine Endocrinology: Denies polydipsia or polyphagia EXAM Physical Exam Const Vital Signs: 08/02/22 11:28 Temperature 97.7 F L Temperature Source Oral Pulse Rate 88 Respiratory Rate 14 Blood Pressure 137/87 H Blood Pressure Mean 103 Pulse Ox 96 Oxygen Delivery Method Room Air Positive well nourished General Appearance ED: NAD; Negative for pallor HEENT Reports moist mucous membranes normocephalic and atraumatic Resp normal respiratory effort and clear to auscultation bilaterally Auscultation: Negative for rales, rhonchi or wheezes Cardio regular rate and regular rhythm GI non-tender and non-distended Back/Spine no CVA tenderness Neuro CN's II-XII intact bilaterally Sensorium / Orientation: alert, oriented to person, oriented to place and oriented to time Psych mental status grossly normal and thought process normal Skin no wounds General Skin Exam: Negative for jaundice or pallor MDM MDM MDM Narrative Medical decision making narrative: Patient presenting with diarrhea. She does not have any significant abdominal pain. This is likely viral. Differential includes electrolyte abnormalities, dehydration, anemia. I ordered a stool study. CBC to assess white blood cell count, hemoglobin, platelets. CMP to assess liver function, renal function, electrolytes. Lipase to assess for pancreatitis. Patient medicated with a liter of normal saline and given a GI cocktail for her dyspepsia. She states she does not want anything for nausea or pain. Her CBC and CMP are unremarkable. Lipase is negative. She was unable to provide a stool sample in the 3 hours and 30 minutes that she was here. I suggested to her that this is likely viral in either way. I gave her Zofran for home and recommended she keep staying hydrated. I recommended a bland diet. Return precautions were discussed. Impression: 1. Diarrhea Lab Data Labs: Laboratory Results - last 24 hr 08/02/22 08/02/22 12:10 12:10 WBC 6.5 RBC 4.53 Hgb 12.6 Hct 39.2 MCV 86.5 MCH 27.8 MCHC 32.1 RDW Std Deviation 41.1 RDW Coeff of Viktor 13.1 Plt Count 288 MPV 10.4 Sodium 136 Potassium 3.5 Chloride 108 H Carbon Dioxide 21.0 Anion Gap 7 BUN 19 H Creatinine 0.79 Estim Creat Clear Calc 53.09 Est GFR (MDRD) Af Amer 94 Est GFR (MDRD) Non-Af 77 BUN/Creatinine Ratio 24.1 H Glucose 116 H Calcium 9.0 Magnesium 2.2 Total Bilirubin 0.40 AST 21 ALT 29 Alkaline Phosphatase 76 Total Protein 7.5 Albumin 3.7 Globulin 3.8 Albumin/Globulin Ratio 1.0 Lipase 43 Discharge Plan Triage Chief Complaint: Diarrhea ED Provider: Naeem Jeronimo Dx/Rx/DC Orders Instructions: ED Diarrhea, Viral (Adult) Prescriptions: New ondansetron 4 mg tablet,disintegrating 4 mg PO Q8H PRN PRN (Reason: Nausea) Qty: 20 0RF No Action Prolia 60 mg/mL syringe 60 mg SC [id number] Qty: 1 2RF fluticasone propionate [Flonase Allergy Relief] 50 mcg/actuation spray,suspension 2 spray intranasal DAILY PRN (Reason: congestion, allergies) Qty: 16 2RF Rx Instructions: administer into each nostril simvastatin 20 mg tablet 20 mg PO QHS Qty: 90 3RF pantoprazole 40 mg tablet,delayed release (DR/EC) 40 mg PO QHS Qty: 90 0RF sertraline 100 mg tablet See Rx Instructions .ROUTE .COMPLEX Qty: 90 0RF Dose Instruction: TAKE 1 AND 1/2 TABLET ORALLY DAILY FOR DEPRESSION AT BEDTIME Rx Instructions: TAKE 1 AND 1/2 TABLET ORALLY DAILY FOR DEPRESSION AT BEDTIME carvedilol [Coreg] 3.125 mg tablet 3.125 mg PO BID Qty: 60 2RF Rx Instructions: must administer with a meal/food lisinopril 40 mg tablet 40 mg PO DAILY Qty: 90 3RF lorazepam 1 mg tablet 1 mg PO QHS PRN (Reason: anxiety) Qty: 90 0RF Primary Care Provider: Jeancarlos Sanchez Referrals: Jeancarlos Sanchez, [Primary Care Provider] - Disposition Disposition: Home, Self Care
[2022-08-02] MEDS: 0.9% Normal Saline 1,000 ML 1000 ML IV (12:08)
[2022-08-02 12:23] LABS: Hematocrit 39.2 % (37-47); Hemoglobin 12.6 g/dL (12.0-15.0); Mean Corp Hgb Conc 32.1 g/dL (32-36); Mean Corpuscular Hgb 27.8 pg (27.0-32.0); Mean Corpuscular Volume 86.5 fL (81-99); Mean Platelet Vol. 10.4 fl (6.2-12.0); Platelet Count 288 K/mm3 (150-450); RBC Distribution Width CV 13.1 % (11.6-14.6); RBC Distribution Width SD 41.1 fl (35.1-43.9); Red Blood Count 4.53 M/mm3 (4.2-5.4); White Blood Count 6.5 K/mm3 (4.4-11.0)
[2022-08-02] MEDS: Mag Hydrox/Al Hydrox/Simeth 30 ML UDC PO (12:33)
[2022-08-02 12:34] LABS: AST(SGOT) 21 U/L (15-37); Alanine Aminotransfer ALT/SGPT 29 U/L (13-56); Albumin, Serum 3.7 g/dL (3.2-5.0); Alkaline Phosphatase 76 U/L (45-117); Anion Gap 7 (5-15); BUN 19 mg/dL (7-18); BUN/Creat Ratio 24.1 RATIO (10-20); Chloride 108 mmol/L (98-107); Creatinine, Serum 0.79 mg/dL (0.55-1.02); EST Glomerular Filtration Rate 77 mL/min (>60); Est Glom Filt Rate - Afr Amer 94 mL/min (>60); Estimated Creatinine Clearance 53.09 ml/min; Globulin 3.8 g/dL (2.2-4.2); Glucose 116 mg/dL (74-106); Lipase 43 U/L (13-75); Magnesium 2.2 mg/dL (1.6-2.6); Potassium 3.5 mmol/L (3.5-5.1); Protein, Total 7.5 g/dL (6.4-8.2); Sodium Level 136 mmol/L (136-145)
[2022-08-02 13:28] VITALS: RESP 16
== END 2022-08-02 14:59 | disposition home or self-care (01) ==
PROVIDERS: Emergency Provider Student in an Organized Health Care Education/Training Program; PCP Family Medicine; Visit Provider Student in an Organized Health Care Education/Training Program
DX: R19.7 Diarrhea, unspecified (principal); Z87.891 Personal history of nicotine dependence; E78.00 Pure hypercholesterolemia, unspecified; R10.9 Unspecified abdominal pain
CPT/HCPCS: 80053; 83690; 83735; 85027; 87506; 96360; 96361; 99283; J7030; A4216

== ENCOUNTER → 2022-08-13 | Outpatient (CLI) | payer MEDICARE, OTHER, SELFPAY ==
[2022-08-14 16:09] LABS: Calprotectin, Stool 43 ug/g (0-120)
[2022-08-18 15:07] LABS: Pancreatic Elastase, Fecal 330 (>200)
== END | disposition home or self-care (01) ==
LOC: LABSPEC 10:48
PROVIDERS: PCP Family Medicine
DX: R19.7 Diarrhea, unspecified (principal); R14.0 Abdominal distension (gaseous)
CPT/HCPCS: 82653; 83993

== ENCOUNTER → 2022-08-18 | Outpatient (CLI) | payer MEDICARE, OTHER, SELFPAY ==
--- NOTE | 2022-08-18 17:58 | CT_ITS ---
INDICATION: abdominal pain, unintentional weight loss EXAMINATION: CT ABDOMEN AND PELVIS WITH CONTRAST - CT Abdomen And Pelvis W/ Contrast Injection TECHNIQUE: Helically acquired images were obtained of the abdomen and pelvis following IV contrast. A radiation dose optimization technique was used for this scan. IV Contrast dosage and agent: 100 mL Isovue-370 Oral contrast: Redicat. COMPARISON: November 10, 2017 abdominal ultrasound. FINDINGS: LOWER CHEST: Lung bases are clear. No cardiomegaly or pericardial effusion. LIVER: Homogeneous mild hepatomegaly. No focal mass. GALLBLADDER AND BILIARY TREE: Cholecystectomy. . No intra- or extrahepatic biliary ductal dilation. PANCREAS: No ductal ectasia or surrounding inflammation. Scattered 2 to 3 mm hypodense foci are seen along the pancreatic body and tail. SPLEEN: Normal size without focal cystic or solid mass. ADRENAL GLANDS: No nodules. KIDNEYS AND URETERS: Right renal 1.8 cm cyst and left renal 1.1 cm cyst, no specific imaging follow-up required. Normal renal size and position. No hydronephrosis. PERITONEUM: No ascites or free air. No other fluid collection. BOWEL: Minimal hiatal hernia. No acute gastric finding. No small bowel distention or focal wall thickening. Normal appendix. Distal colonic diverticulosis without evidence of diverticulitis. LYMPH NODES: No enlarged mesenteric or retroperitoneal lymph nodes. VESSELS: Aortic atherosclerosis without ectasia or dissection.. URINARY BLADDER: Unremarkable. REPRODUCTIVE ORGANS: Unremarkable uterus and right ovary. Surgically absent left ovary. ABDOMINAL WALL: No discrete abdominal or pelvic wall hernia. BONES: No lytic or blastic abnormality. Levocurvature of the lumbar spine with moderate spondylosis and leftward angulation. Small posterior disc protrusion L3-4 and minimal posterior disc protrusion L4-5 with bilateral facet arthropathy, together causing mild spinal canal and moderate bilateral neural foraminal stenosis. CT/Abdomen/Pelvis WITH Contrast IMPRESSION: Indeterminate 2 to 3 mm cystic foci along the pancreatic body and tail may represent invagination of fat or cystic mass. Recommend pancreatic MRI when clinically able. No evidence of other abdominal mass or adenopathy.. Distal colonic diverticulosis without evidence of diverticulitis. Hepatomegaly. Minimal hiatal hernia. Lower lumbar spondylosis. Electronically Signed: Timo Alexis MD at 5:59 EDT ,
== END | disposition home or self-care (01) ==
LOC: CT 17:55
PROVIDERS: PCP Family Medicine; Referring Provider Internal Medicine; Visit Provider Internal Medicine
DX: R10.13 Epigastric pain (principal); R63.4 Abnormal weight loss
CPT/HCPCS: 74177; Q9967

== ENCOUNTER → 2022-08-27 | Outpatient (CLI) | payer MEDICARE, OTHER, SELFPAY ==
--- NOTE | 2022-08-27 11:14 | MRI_ITS ---
Examination: MRI of the abdomen without and with intravenous contrast administration. INDICATION: Pancreatic lesion. TECHNIQUE: Multiplanar multisequence MRI of the abdomen was obtained pre and post intravenous administration of 12 mL of Clariscan. COMPARISON: CT dated August 18, 2022 FINDINGS: The lung bases are clear. There is diffuse signal dropout throughout the liver on the out of phase images consistent with fatty infiltration. There is hepatomegaly. The gallbladder is surgically absent. The spleen is within normal limits. Within the body and tail of the pancreas there are 3.0, 3.3 and 5.0 mm round foci that demonstrates signal dropout on the out of phase images and no enhancement consistent with intercalated fat. There is no pancreatic ductal dilatation. The adrenal glands are within normal limits. There are bilateral renal cysts. The stomach is within normal limits. The visualized loops of small bowel and colon are grossly unremarkable. There are degenerative changes of the lumbar spine. MRI/MRI Abd WITH and W/O Contrast IMPRESSION: Fatty infiltration of the liver associated with hepatomegaly. Foci of intercalated fat within the pancreas. Bilateral renal cysts. Degenerative changes of the lumbar spine. Electronically Signed: Paulette Valladares MD at 9:31 EDT ,
== END | disposition home or self-care (01) ==
PROVIDERS: PCP Family Medicine; Referring Provider Internal Medicine; Visit Provider Internal Medicine
DX: K86.9 Disease of pancreas, unspecified (principal)
CPT/HCPCS: 74183; A9575; A4216

== ENCOUNTER → 2022-12-29 | Outpatient (CLI) | payer MEDICARE, OTHER, SELFPAY ==
--- NOTE | 2022-12-29 15:22 | RAD_ITS ---
STUDY: X-RAY - LEFT FOOT CLINICAL: Female, 67 years old. Foot bruising and burning. TECHNIQUE: 3 view(s) of the foot. COMPARISON: None. FINDINGS: Osteopenia. Small inferior calcaneal spur. Mild arthrosis of the midfoot. Normal TMT joints. Mild arthrosis of the MTP and IP joints. Normal soft tissues. RAD/Foot min 3 Views IMPRESSION: Osteopenia, calcaneal spur and mild osteoarthritic changes. No acute abnormality or erosive changes Electronically Signed: Sergio Rea MD at 15:54 EST ,
== END | disposition home or self-care (01) ==
LOC: RAD 15:16
PROVIDERS: PCP Family Medicine; Referring Provider Internal Medicine; Visit Provider Internal Medicine
DX: M79.672 Pain in left foot (principal)
CPT/HCPCS: 73630

== ENCOUNTER 2023-08-05 13:35 | Emergency (ER) | payer MEDICARE, OTHER, SELFPAY ==
[2023-08-05 13:36] VITALS: BP 159/77; PULSE 77; RESP 16; TEMP 36.4; O2SAT 98; BMI 32.6
[2023-08-05 13:37] VITALS: BP 159/77; PULSE 77; RESP 16; TEMP 36.4; O2SAT 98
[2023-08-05 14:24] LABS: Absolute Lymphocyte Count 1.53 X10^3/uL (0.83-4.51); Absolute Neutrophil Count 3.9 X10^3/uL (2.0-7.7); Basophil# 0.07 X10^3/uL; Basophil% 1.1 % (0-1); Eosinophil# 0.11 X10^3/uL; Eosinophils% 1.8 % (0-5); Hematocrit 36.6 % (37-47); Hemoglobin 11.5 g/dL (12.0-15.0); Lymphocyte # 1.53 X10^3/ul (0.83-4.51); Lymphocyte % 24.8 % (19-41); Mean Corp Hgb Conc 31.4 g/dL (32-36); Mean Corpuscular Volume 89.3 fL (81-99); Mean Platelet Vol. 11.1 fl (6.2-12.0); Monocyte% 8.1 % (0-10); NRBC Flagged by Analyzer 0 % (0-5); Neutrophil # 3.94 X10^3/uL (2.7-7.7); Neutrophil % 63.9 % (47-70); Platelet Count 314 K/mm3 (150-450); RBC Distribution Width CV 12.4 % (11.6-14.6); RBC Distribution Width SD 40.4 fl (35.1-43.9); White Blood Count 6.2 K/mm3 (4.4-11.0)
--- NOTE | 2023-08-05 14:30 | CT_ITS ---
STUDY: CT ABDOMEN AND PELVIS WITH CONTRAST REASON FOR EXAM: Female, 68 years old. Right flank pain and right lower quadrant pain. RADIATION DOSAGE (If Supplied By Facility): CTDIvol = ( 15.62 ) mGy, DLP = ( 1118.83 ) mGycm TECHNIQUE: Transaxial images were obtained from the dome of the diaphragm to the symphysis pubis without oral contrast. IV 100mL Isovue-300 was administered. Sagittal and coronal images were reconstructed. Individualized dose optimization techniques were used for this CT. COMPARISON: Comparison is made with prior study dated August 18, 2022. FINDINGS: The visualized lung bases are unremarkable. Coronary artery calcification. There is decreased attenuation of the liver consistent with steatosis. The patient is status post cholecystectomy. Normal spleen. Stable tiny subcentimeter hypodensity is seen in the pancreas. Normal bilateral adrenal glands. Stable 1.8 cm cyst in the upper pole of the right kidney. Normal left kidney. Normal visualized stomach. Normal small intestine. There is diverticulosis, with thickening of the colon wall, and pericolonic inflammation changes consistent with acute diverticulitis. The appendix is visualized and appears normal. There is diffuse atherosclerotic calcification of the abdominal aorta and its major visceral branches, without a demonstrated aneurysm. Normal inferior vena cava. Normal retroperitoneum. Normal urinary bladder. Normal abdominal wall. There are diffuse degenerative changes of the visualized lumbar spine. CT/Abdomen/Pelvis W IV Cont ONLY IMPRESSION: Sigmoid diverticulosis with evidence of noncomplicated acute sigmoid diverticulitis. Fatty infiltration of the liver. Status post cholecystectomy. Electronically Signed: Brendon Grubbs MD at 15:18 EDT ,
--- NOTE | 2023-08-05 14:30 | ED.VIS.GI ---
HPI HPI - GI History of Present Illness Chief Complaint: Flank Pain Narrative Narrative: 68-year-old female presenting with abdominal pain. She states on Thursday it started around her umbilicus and is slowly gone to her right lower quadrant. Patient states that she is urinating without dysuria or hematuria but when she urinates she seems to get relief. She denies fever at home. Patient with history of cholecystectomy, ex lap, ectopic , tubal ligation. Patient denies vaginal complaints. She has had some loose stools over the weekend. PFSH PFSH Medical History Influenza A High cholesterol High blood pressure Chronic headaches Depression Home Medications ?Medication ?Instructions ?Recorded ?Last Taken ?Type carvedilol 3.125 mg tablet (Coreg) 3.125 mg PO DAILY #90 tabs 10/29/22 Unknown Rx lisinopril 40 mg tablet 40 mg PO DAILY #90 tabs 10/29/22 Unknown Rx lorazepam 1 mg tablet 1 mg PO QHS PRN anxiety #90 tabs 10/29/22 Unknown Rx pantoprazole 40 mg tablet,delayed 40 mg PO QHS #90 tabs 10/29/22 Unknown Rx release simvastatin 20 mg tablet 20 mg PO QHS #90 tabs 10/29/22 Unknown Rx sertraline 100 mg tablet 100 mg PO DAILY #90 tabs 04/28/23 Unknown Rx amoxicillin 875 mg-potassium 1 tab PO BID #24 tabs 08/05/23 Unknown Rx clavulanate 125 mg tablet Allergy/AdvReac Type Severity Reaction Status Date / Time sulfamethoxazole (From Allergy Hives Verified 08/05/23 13:38 Bactrim) trimethoprim (From Bactrim) Allergy Hives Verified 08/05/23 13:38 morphine AdvReac Low blood Verified 08/05/23 13:38 pressure Family History Mother Diabetes Heart disease Hypertension Myocardial infarction Father Myocardial infarction Brother Hypertension Diabetes Sister Diabetes Hypertension Grandfather Alzheimer's dementia Cancer Grandmother Fabiana Gehrigs disease Grandfather Heart disease Aunt Breast cancer Surgical History History of colonoscopy History of orthopedic surgery History of tubal ligation History of gynecologic surgery Social History Smoking Status: Former smoker alcohol intake: never substance use type: does not use what type of physical activity do you participate in: none ROS ROS ED Constitutional Constitutional ED: Denies chills, fever(s) or sweats Eyes Eyes: Denies blurry vision or change in vision ENT ENT ED: Denies ear pain or sore throat Cardiovascular Cardiovascular: Denies chest pain, palpitations or racing heartbeat Respiratory/Chest Respiratory/Chest: Denies cough, dyspnea or sputum Gastrointestinal Gastrointestinal: Reports abdominal pain and diarrhea; Denies constipation, nausea or vomiting Genitourinary Genitourinary ED: Denies dysuria, hematuria or urinary frequency Musculoskeletal Musculoskeletal: Denies arthralgias, myalgias or neck pain Integumentary Denies abscess, Abrasions or rash Neurologic Neurologic: Denies headache(s), paresthesias or weakness Psychiatric Psychiatric: Denies anxiety, depression, suicidal ideation or suicidal thoughts Endocrine Endocrinology: Denies polydipsia or polyuria EXAM Physical Exam Const Vital Signs: 08/05/23 13:36 08/05/23 13:37 08/05/23 15:43 Temperature 97.6 F L 97.6 F L 98.4 F Temperature Source Temporal Temporal Oral Pulse Rate 77 77 81 Respiratory Rate 16 16 18 Blood Pressure 159/77 H 159/77 H 141/71 H Blood Pressure Mean 104 104 94 Pulse Ox 98 98 96 Oxygen Delivery Method Room Air Room Air Room Air 08/05/23 15:44 Temperature 98.4 F Temperature Source Pulse Rate 81 Respiratory Rate 18 Blood Pressure 141/71 H Blood Pressure Mean 94 Pulse Ox 96 Oxygen Delivery Method Positive well nourished General Appearance ED: NAD HEENT Reports moist mucous membranes normocephalic and atraumatic Eyes PERRL Resp normal respiratory effort and clear to auscultation bilaterally Auscultation: Negative for rales, rhonchi or wheezes Cardio regular rate and regular rhythm GI Palpation: tender periumbilical Back/Spine General Back: CVA tenderness right Neuro CN's II-XII intact bilaterally Sensorium / Orientation: alert Motor Exam: strength 5/5 throughout Psych mental status grossly normal and thought process normal MDM MDM MDM Narrative Medical decision making narrative: Patient presenting with right lower quadrant abdominal pain. Patient presenting with right flank pain. Differential includes colitis, diverticulitis, gastritis, pancreatitis, constipation, appendicitis, UTI, pyelonephritis, calculi, ureteral calculi, obstruction, malignancy, dehydration, electrolyte abnormalities. CBC will be obtained to assess white blood cell count, hemoglobin, platelets. BMP to assess renal function electrolytes. Urinalysis to assess for UTI or occult blood. CBC shows normal white blood cell count 6.2. Hemoglobin 11.5. Renal function electrolytes within normal limits. Urinalysis negative for infection. CT of the abdomen pelvis with IV contrast was obtained and shows evidence of acute uncomplicated diverticulitis of the sigmoid colon. Patient counseled on this finding. All questions were answered. She is discharged home with Augmentin. She declines analgesia otherwise. She has a GI specialist she sees at [place] and she can follow-up with. Impression: 1. Acute uncomplicated diverticulitis Lab Data Attestation: I reviewed the patient's lab results. Labs: Laboratory Results - last 24 hr 08/05/23 08/05/23 13:52 14:25 WBC 6.2 RBC 4.10 L Hgb 11.5 L Hct 36.6 L MCV 89.3 MCH 28.0 MCHC 31.4 L RDW Std Deviation 40.4 RDW Coeff of Viktor 12.4 Plt Count 314 MPV 11.1 Immature Gran % (Auto) 0.300 Neut % (Auto) 63.9 Lymph % (Auto) 24.8 Saunders % (Auto) 8.1 Eos % (Auto) 1.8 Baso % (Auto) 1.1 H Absolute Neuts (auto) 3.9 Absolute Lymphs (auto) 1.53 Nucleated RBC % 0 Sodium 139 Potassium 4.1 Chloride 109 H Carbon Dioxide 24.0 Anion Gap 6 BUN 22 H Creatinine 0.92 Estim Creat Clear Calc 71.46 Est GFR (MDRD) Af Amer 78 Est GFR (MDRD) Non-Af 64 BUN/Creatinine Ratio 23.9 H Glucose 106 Calcium 9.6 Urine Color Yellow Urine Clarity Sl. Cloudy Urine pH 5.0 Ur Specific [place] 1.030 Urine Protein 30 H Urine Glucose (UA) Normal Urine Ketones Negative Urine Occult Blood 25 H Urine Nitrite Negative Urine Bilirubin Negative Urine Urobilinogen Normal Ur Leukocyte Esterase 25 H Urine RBC 0-5 SEEN Urine WBC 0-5 SEEN Ur Squamous Epith Cells 0-5 SEEN Urine Bacteria 1+ Urine Mucus 1+ Radiography Diagnostic Testing: Clinical Impression(s) from Imaging Studies Abdomen/Pelvis CT 08/05/23 14:30 IMPRESSION: Sigmoid diverticulosis with evidence of noncomplicated acute sigmoid diverticulitis. Fatty infiltration of the liver. Status post cholecystectomy. Electronically Signed: Brendon Grubbs MD at 15:18 EDT , Discharge Plan Triage Chief Complaint: Flank Pain ED Provider: Naeem Jeronimo Dx/Rx/DC Orders Instructions: ED Diverticulitis Prescriptions: New amoxicillin-pot clavulanate 875-125 mg tablet 1 tab PO BID Qty: 24 0RF No Action simvastatin 20 mg tablet 20 mg PO QHS Qty: 90 3RF pantoprazole 40 mg tablet,delayed release (DR/EC) 40 mg PO QHS Qty: 90 2RF lorazepam 1 mg tablet 1 mg PO QHS PRN (Reason: anxiety) Qty: 90 1RF lisinopril 40 mg tablet 40 mg PO DAILY Qty: 90 3RF carvedilol [Coreg] 3.125 mg tablet 3.125 mg PO DAILY Qty: 90 3RF Rx Instructions: must administer with a meal/food sertraline 100 mg tablet 100 mg PO DAILY Qty: 90 1RF Primary Care Provider: Jeancarlos Sanchez Referrals: Jeancarlos Sanchez, [Primary Care Provider] - Print Language: French Disposition Disposition: Home, Self Care
[2023-08-05 14:37] LABS: Anion Gap 6 (5-15); BUN 22 mg/dL (7-18); BUN/Creat Ratio 23.9 RATIO (10-20); Calcium,Total 9.6 mg/dL (8.5-10.1); Chloride 109 mmol/L (98-107); Creatinine, Serum 0.92 mg/dL (0.55-1.02); EST Glomerular Filtration Rate 64 mL/min (>60); Est Glom Filt Rate - Afr Amer 78 mL/min (>60); Estimated Creatinine Clearance 71.46 ml/min; Glucose 106 mg/dL (74-106); Potassium 4.1 mmol/L (3.5-5.1); Sodium Level 139 mmol/L (136-145)
[2023-08-05 14:37] LABS: Color, Urine Yellow (Yellow); Glucose, Dipstick Normal (Normal); Ketone-Dipstick Negative (Negative); Leukocyte Esterase-Dipstick 25 /ul (Negative); Nitrite-Dipstick Negative (Negative); Occult Blood-Urine 25 /ul (Negative); Protein-Dipstick 30 mg/dl (Negative); Urine Bilirubin Dipstick Negative (Negative); Urine Clarity Sl. Cloudy (Clear); Urine Urobilinogen Normal (Normal)
[2023-08-05 14:43] LABS: Bacteria 1+ /hpf (None Seen); Mucous, Urine 1+ /hpf (<or=2+); Red Blood Cells-Urine 0-5 SEEN /hpf (0-5); Squamous Epithelial Cells - UA 0-5 SEEN /hpf (5-10); White Blood Cells 0-5 SEEN /hpf (0-5)
[2023-08-05 15:43] VITALS: BP 141/71; PULSE 81; RESP 18; TEMP 36.9; O2SAT 96
[2023-08-05 15:44] VITALS: BP 141/71; PULSE 81; RESP 18; TEMP 36.9; O2SAT 96
[2023-08-05] MEDS: Amox/Clavulanate 875 MG Tablet PO (15:48)
== END 2023-08-05 15:52 | disposition home or self-care (01) ==
PROVIDERS: Emergency Provider Student in an Organized Health Care Education/Training Program; PCP Family Medicine; Visit Provider Student in an Organized Health Care Education/Training Program
DX: K57.32 Diverticulitis of large intestine without perforation or abscess without bleeding (principal); E78.00 Pure hypercholesterolemia, unspecified; I10 Essential (primary) hypertension; Z79.899 Other long term (current) drug therapy; Z87.891 Personal history of nicotine dependence; Z90.49 Acquired absence of other specified parts of digestive tract
CPT/HCPCS: 74177; 80048; 81001; 85025; 99283; Q9967

== ENCOUNTER → 2023-11-20 | Outpatient (CLI) | payer MEDICARE, OTHER, SELFPAY ==
--- NOTE | 2023-11-20 14:45 | BI_ITS ---
MAMMOGRAPHY - BILATERAL SCREENING 3-D TOMOSYNTHESIS REASON FOR EXAM: Female, 68 years old. screen PERTINENT HISTORY: No significant family history. TECHNIQUE: 2-D mammograms and 3-D Tomosynthesis of the breast (s) were performed. CAD was performed. COMPARISON: 05/21/2021 FINDINGS: The breast composition is composed of scattered fibroglandular density. Scattered benign calcifications are seen. No dense spiculated masses or suspicious microcalcifications are identified. No architectural distortion is identified. There is no skin thickening or retraction. There has been no significant change since the prior study. BI/SCRN MAMM (CAD)W/MAIA BILAT IMPRESSION: No mammographic signs of malignancy. Routine yearly mammograms recommended. ASSESSMENT CATEGORY: BIRADS Category 1: Negative. A letter regarding these results will be sent to the patient by the facility within 30 days. FOLLOW UP RECOMMENDATION: Yearly follow up mammogram recommended. (A) Approximately 10% of breast cancers are not detected by mammography. A normal mammogram should not delay biopsy of a clinically suspicious abnormality. Electronically Signed: Osman Knapp MD at 8:46 EDT ,
== END | disposition home or self-care (01) ==
LOC: OPBI 14:45
PROVIDERS: PCP Family Medicine; Referring Provider Family Medicine; Visit Provider Family Medicine
DX: Z12.31 Encounter for screening mammogram for malignant neoplasm of breast (principal)
CPT/HCPCS: 77063; 77067

== ENCOUNTER → 2024-05-03 | Outpatient (CLI) | payer MEDICARE, OTHER, SELFPAY ==
[2024-05-03 12:55] LABS: ALB/GLOB Ratio 1.5 RATIO (0.9-2.4); AST(SGOT) 21 U/L (<=31); Alanine Aminotransfer ALT/SGPT 18 U/L (<=34); Albumin, Serum 4.3 g/dL (3.4-4.8); Alkaline Phosphatase 69 U/L (35-104); Anion Gap 10 (5-15); BUN 18 mg/dL (4-19); BUN/Creat Ratio 17.8 RATIO (10-20); Calcium,Total 9.1 mg/dL (7.6-11.0); Carbon Dioxide 24.3 mmol/L (21.0-32.0); Chloride 103 mmol/L (98-108); Cholesterol 153 mg/dL (<=200); Creatinine, Serum 0.99 mg/dL (0.70-1.20); EST Glomerular Filtration Rate 62 (>60); Globulin 2.8 g/dL (2.2-4.2); Glucose 101 mg/dL (70-99); High Density Lipoprotein 47 mg/dL; Low Density Lipoprotein Calc. 84 mg/dL; Potassium 4.8 mmol/L (3.3-5.1); Protein, Total 7.2 g/dL (5.9-8.4); Sodium Level 137 mmol/L (133-145); Total Bilirubin 0.38 mg/dL (0.00-1.30); Triglycerides 109 mg/dL; Very Low Density Lipoprotein 22 mg/dL (5-40); cholesterol:hdl ratio screen 3.27
== END | disposition home or self-care (01) ==
LOC: BIMLAB 09:29
PROVIDERS: PCP Family Medicine; Referring Provider Family Medicine; Visit Provider Family Medicine
DX: E78.00 Pure hypercholesterolemia, unspecified (principal)
CPT/HCPCS: 36415; 80053; 80061

== ENCOUNTER → 2024-11-25 | Outpatient (CLI) | payer MEDICARE, OTHER, SELFPAY ==
--- OUTSIDE RECORDS SUMMARY | 2024-11-25 07:21 | XMS RPT_ITS | CCD ---
Author Organization [facility] Care Team Providers Care Director Of Photography Name Role Phone Catrachito Duckworth Unavailable [phone] Dr. Jeancarlos Sanchez Primary Care Provider [phone] Dr. Jeancarlos Sanchez Referring Provider [phone] Dr. Alan Clifford Attending Provider Dr. Jeancarlos Sanchez Attending Provider [phone] Jeancarlos Sanchez Primary Care Provider [phone] Dr. Jeancarlos Sanchez Attending Provider [phone] Jeancarlos Sanchez Referring Provider [phone] ALDEN Arias Attending Provider [phone] Jeancarlos Sanchez Primary Care Provider [phone] Dr. Jeancarlos Sanchez Referring Provider [phone] Jeancarlos Sanchez Attending Provider [phone] Opal Staton Attending Provider [phone] Dr. Dustin Ruiz Attending Provider [phone] Opal Staton MD Primary Care Provider [phone] Dr. Jeancarlos Sanchez Primary Care Provider [phone] Dr. Jeancarlos Sanchez Referring Provider [phone] Jeancarlos Sanchez Primary Care Provider [phone] Dr. Jeancarlos Sanchez Attending Provider [phone] Jeancarlos Sanchez Referring Provider [phone] Opal Staton Attending Provider [phone] Shemar MD, Opal G Primary Care Provider [phone] SHEMAR, OPAL G Primary Care Unavailable PATTI DALLAS Attending Unavailable SHEMAR, OPAL G Referring Unavailable SHEMAR, OPAL G Primary Care Unavailable SHEMAR, OPAL G Primary Care Unavailable PATTI DALLAS Attending Unavailable SHEMAR, OPAL G Primary Care Unavailable POP GARCIA Attending Unavailable PATTI DALLAS Referring Unavailable SHEMAR, OPAL G Primary Care Unavailable EULALIA SPDEVAUGHN AZEVEDO Attending Unavaila ble PATTI DALLAS Referring Unavailable Daniel NOVOA, Dr. Jeancarlos Burnette Primary Care Provider Daniel NOVOA, Dr. Jeancarlos Burnette Referring Provider [phone] Shemar WALLACE, Dr. Augustine Attending Provider Daniel NOVOA, Dr. Jeancarlos Burnette Attending Provider [phone] Dr. Jeancarlos Sanchez DO Primary Care Provider Dr. Jeancarlos Sanchez DO Referring Provider [phone] Nakul [employer]-CKelle Attending Provider NURSE, FABIENNE Attending Provider Unavailable Daniel NOVOA, Dr. Jeancarlos Burnette Primary Care Physician Dr. Jeancarlos Sanchez DO Referring Provider [phone] Sampson [employer] COUN[employer]-CShital Attending Physician Dr. Jeancarlos Sanchez DO Attending Physician [phone] Brown, Jeancarlos R Primary Care Unavailable Shital Braden Attending Unavailable Brown, Jeancarlos R Referring Unavailable Brown, Jeancarlos R Primary Care Unavailable Brown, Jeancarlos R Attending Unavailable Brown, Jeancarlos R Referring Unavailable Brown, Jeancarlos R Primary Care Unavailable Opal Staton Attending Unavailable Brown, Jeancarlos R Referring Unavailable Brown, Jeancarlos R Primary Care Unavailable Brown, Jeancarlos R Attending Unavailable Brown, Jeancarlos R Referring Unavailable Brown, Jeancarlos R Primary Care Unavailable Brown, Jeancarlos R Attending Unavailable Brown, Jeancarlos R Referring Unavailable Brown, Jeancarlos R Primary Care Unavailable Kelle Mota Attending Unavailable Brown, Jeancarlos R Referring Unavailable Brown, Jeancarlos R Primary Care Unavailable Brown, Jeancarlos R Attending Unavailable Brown, Jeancarlos R Referring Unavailable Brown, Jeancarlos R Primary Care Unavailable Brown, Jeancarlos R Attending Unavailable Brown, Jeancarlos R Referring Unavailable Brown, Jeancarlos R Primary Care Unavailable Brown, Jeancarlos R Attending Unavailable Brown, Jeancarlos R Referring Unavailable Brown, Jeancarlos R Primary Care Unavailable Brown, Jeancarlos R Attending Unavailable Brown, Jeancarlos R Referring Unavailable Brown, Jeancarlos R Primary Care Unavailable NURSE, BIM Attending Unavailable Brown, Jeancarlos R Referring Unavailable Allergies Allergy Classification Reported Allergen(s) Allergy Type Date of Onset Reaction(s) Facility (19 sources) morphine; Translations: [MORPHINE] drug allergy 5 Other: See Comments, Shortness of Breath [facility] Work Phone: (2 sources) sulfamethoxazole / trimethoprim drug allergy 5 [facility] Work Phone: (8 sources) Sulfamethoxazole Drug Allergy 2 [facility] (16 sources) Trimethoprim; Translations: [TRIMETHOPRIM] Drug Allergy 8 [facility] (8 sources) Sulfamethoxazole / Trimethoprim; Translations: [SULFAMETHOXAZOLE-TR IMETHOPRIM] Drug Allergy 5 Other: See Comments [facility] (1 source) Sulfamethoxazole Drug Allergy 5 [facility] (1 source) Trimethoprim Drug Allergy 5 [facility] Medications Current Medications Medication Drug Class(es) Dates Sig (Normalized) Sig (Original) pantoprazole 40 mg delayed release oral tablet (20 sources) Proton Pump Inhibitor Start: 10-24-2021 End: 11-01-2024 take 1 tablet by mouth at bedtime Comment on above: Take 40 mg by mouth daily at bedtime. sertraline 100 mg oral tablet (20 sources) Serotonin Reuptake Inhibitor Start: 04-02-2022 End: 11-01-2024 take 1 tablet by mouth once daily Start: 04-02-2021 End: 04-02-2022 Sertraline 100 mg tablet Discontinued 150 mg PO DAILY 180 1 October 03, 2021 3:53pm April 02, 2022 9:11am Major depressive disorder, single episode, unspecified depression at bedtime Start: 04-02-2021 End: 11-10-2022 Sertraline Active 0 .ROUTE . COMPLEX November 10, 2022 1:49pm TAKE 1 AND 1/2 TABLET ORALLY DAILY FOR DEPRESSION AT BEDTIME Start: 05-02-2020 End: 04-02-2021 take 1 tablet by mouth once daily at bedtime Sertraline 100 mg tablet Discontinued 100 mg PO DAILY October 03, 2020 4:38pm April 02, 2021 11:28am Major depressive disorder, single episode, unspecified depression at bedtime Start: 04-03-2020 End: 05-02-2020 take 1 tablet by mouth once daily at bedtime Sertraline 50 mg tablet Discontinued 50 mg PO DAILY 90 April 03, 2020 1:00am May 02, 2020 12:00pm Major depressive disorder, single episode, unspecified depression at bedtime End: 11-18-2022 take 1 capsule by mouth once daily sertraline 150 mg capsule Take 150 mg by mouth once daily. 11/18/2022 Discontinued Comment on above: Take 150 mg by mouth once daily. Completed/Discontinued Medications Medication Drug Class(es) Dates Sig (Normalized) Sig (Original) acetaminophen 325 mg / HYDROcodone bitartrate 5 mg oral tablet (8 sources) Opioid Agonist Start: 12-21-2017 End: 12-28-2017 Hydrocodone-Acetam inophen ([place] 5-325 Tablet) 1 EACH tablet Discontinued 1 - 2 {tbl} PO EVERY 6 HOURS NEEDED as needed for Pain 30 7 0 December 21, 2017 3:10pm December 27, 2017 1:00am December 28, 2017 1:12am Biliary colic Calculus of bile duct without cholangitis or cholecystitis without obstruction alendronic acid 70 mg oral tablet (8 sources) Bisphosphonate Start: 12-15-2018 End: 03-16-2019 take 1 tablet by mouth every week Alendronate 70 mg tablet Discontinued 70 mg PO EVERY WEEK 20 3 December 15, 2018 1:00am March 16, 2019 2:46pm amoxicillin 500 mg oral capsule (14 sources) Penicillin-class Antibacterial Start: 04-06-2024 End: 05-03-2024 take 1 capsule by mouth three times daily Amoxicillin 500 mg capsule Discontinued 500 mg PO THREE TIMES A DAY 21 0 April 06, 2024 1:00am May 03, 2024 9:09am Start: 04-21-2022 End: 05-01-2022 take 1 tablet by mouth every twelve hours Amoxicillin 875 mg tablet Discontinued 875 mg PO Q12H 20 10 0 April 21, 2022 12:00am April 30, 2022 12:00am May 01, 2022 12:05am Start: 10-16-2016 AMOXICILLIN 50 0 MG CAPS 2 capsules twice a day AMOXICILLIN [id number] Catrachito RUANO Start: 05-22-2016 AMOXICILLIN 50 0 MG TABS 2 tablets twice a day AMOXICILLIN [id number] Catrachito RUANO amoxicillin 875 mg / clavulanate 125 mg oral tablet (14 sources) Penicillin-class Antibacterial Start: 08-05-2023 End: 08-21-2023 Amoxicillin-Pot Clavulanate 875-125 mg tablet Discontinued 1 {tbl} PO TWICE A DAY 24 0 August 05, 2023 12:00am August 21, 2023 8:54am Start: 04-16-2023 End: 04-26-2023 Amoxicillin-Pot Clavulanate 875-125 mg tablet Discontinued 1 {tbl} PO Q12H 20 10 0 April 16, 2023 1:00am April 25, 2023 12:00am April 26, 2023 12:04am Acute sinusitis, unspecified Start: 06-14-2019 End: 09-13-2019 Amoxicillin-Pot Clavulanate (Augmentin) 875-125 mg tablet Discontinued 1 {tbl} PO TWICE A DAY 14 0 June 14, 2019 12:00am September 13, 2019 11:52am benzonatate 200 mg oral capsule (6 sources) Non-narcotic Antitussive Start: 04-06-2024 End: 05-03-2024 take 1 capsule by mouth three times daily Benzonatate 200 mg capsule Discontinued 200 mg PO THREE TIMES A DAY 20 April 06, 2024 1:00am May 03, 2024 9:09am Start: 04-16-2023 End: 08-05-2023 take 2 capsules by mouth three times daily as needed for cough Benzonatate 100 mg capsule Discontinued 200 mg PO THREE TIMES A DAY as needed for cough 30 0 April 16, 2023 1:00am August 05, 2023 2:23pm calcium carbonate 1500 mg / cholecalciferol 0.01 mg oral tablet (8 sources) Vitamin D Start: 01-18-2015 End: 11-05-2017 Calcium Carbonate-Vitamin D3 1 EACH tablet Discontinued 2 NMA PO DAILY January 18, 2015 1:00am November 05, 2017 2:04pm Start: 01-18-2015 End: 11-05-2017 Calcium Carbonate-Vitamin D3 Discontinued 2 EACH PO DAILY January 18, 2015 12:00am November 05, 2017 1:04pm carvedilol 3.125 mg oral tablet (20 sources) alpha-Adrenergic Warren, beta-Adrenergic Warren Start: 08-06-2022 End: 11-01-2024 take 1 tablet by mouth once daily at mealtime Carvedilol (Coreg) 3.125 mg tablet Discontinued 3.125 mg PO DAILY 90 3 November 02, 2023 11:56am November 03, 2023 9:45am must administer with a meal/food Start: 04-10-2022 End: 08-06-2022 take 1 tablet by mouth twice daily at mealtime Carvedilol (Coreg) 3.125 mg tablet Discontinued 3.125 mg PO TWICE A DAY 60 2 August 04, 2022 12:24pm August 06, 2022 11:28am must administer with a meal/food Comment on above: TAKE 1 TABLET BY SAMI TH TWICE A DAY MUST ADMINISTER WITH A MEAL/FOOD celecoxib 200 mg oral capsule (8 sources) Nonsteroidal Anti-inflammatory Drug Start: 9 End: 9 take 1 capsule by mouth once daily Celecoxib (Celebrex) 200 mg capsule Discontinued 200 mg PO DAILY 14 0 November 11, 2018 12:00am January 25, 2019 2:31pm cephalexin 500 mg oral capsule (10 sources) Cephalosporin Antibacterial Start: 5 End: 5 take 1 capsule by mouth twice daily Cephalexin 500 mg capsule Discontinued 500 mg PO TWICE A DAY 14 7 0 May 28, 2024 12:00am June 03, 2024 12:00am June 04, 2024 12:14am Start: 06-28-2018 End: 09-07-2018 take 1 tablet by mouth three times daily Cephalexin 500 mg tablet Discontinued 500 mg PO THREE TIMES A DAY 21 0 June 28, 2018 12:00am September 07, 2018 9:47am citric acid 13558 mg / magnesium oxide 3500 mg / picosulfate sodium 10 mg powder for oral solution (2 sources) Start: 12-06-2014 End: 12-07-2014 PREPOPIK 10-3.5-12 MG-GM-GM PACK use as per instructions SOD PICOSULFATE-MAG OX-CIT ACD [id number] [address]ia [address] Jason Start: 12-06-2014 End: 12-07-2014 PREPOPIK 10-3.5-12 MG-GM-GM PACK use as per instructions SOD PICOSULFATE-MAG OX-CIT ACD [id number] Siria Gomez 1 ml denosumab 60 mg/ml prefilled syringe (20 sources) RANK Ligand Inhibitor Start: 01-21-2021 End: 01-21-2021 inject 60 mg by subcutaneous injection once Prolia (denosumab) 60 mg/mL subcutaneous syringe Discontinued 60 MG SC ONCE January 21, 2021 12:10pm January 21, 2021 12:22pm Start: 07-19-2020 End: 07-19-2020 inject 60 mg by subcutaneous injection once Prolia (denosumab) 60 mg/mL subcutaneous syringe Discontinued 60 MG SC ONCE July 19, 2020 11:29am July 19, 2020 11:38am Start: 09-22-2019 End: 09-22-2019 inject 60 mg by subcutaneous injection once Prolia (denosumab) 60 mg/mL subcutaneous syringe Discontinued 60 MG SC ONCE September 22, 2019 1:34pm September 22, 2019 1:45pm Start: 03-16-2019 End: 03-16-2019 inject 60 mg by subcutaneous injection once Prolia (denosumab) 60 mg/mL subcutaneous syringe Discontinued 60 MG SC ONCE March 16, 2019 2:25pm March 16, 2019 2:48pm Start: 01-25-2019 End: 08-05-2023 Denosumab (Prolia) 60 mg/mL syringe Discontinued 60 mg SC every 6 months 1 March 16, 2020 9:23am August 05, 2023 2:23pm inject 60 mg by subc utaneous injection once denosumab (PROLIA) 60 mg/mL Inject 60 mg subcutaneously one time only. Active Comment on above: Inject 60 mg subcuta neously one time only. doxycycline hyclate 100 mg oral tablet (8 sources) Tetracycline-class Drug Start: 06-29-19 End: 09-08-19 take 1 tablet by mouth twice daily Doxycycline Hyclate 100 mg tablet Discontinued 100 mg PO TWICE A DAY 14 0 June 28, 2018 12:00am September 07, 2018 9:47am fluticasone propionate 0.05 mg/actuat metered dose nasal spray (20 sources) Corticosteroid Start: 06-14-19 End: 08-07-19 take 50 ug nasal route once daily as needed Fluticasone Propionate (Flonase Allergy Relief) 50 mcg/actuation spray,suspension Discontinued 2 NMA INTRANASAL DAILY as needed for congestion, allergies 27 03December 04, 2020 1:45pm August 06, 2022 11:27am administer into each nostril Start: 06-14-2019 End: 08-06-2022 take 1 spray(s) nasal route once daily Fluticasone Propionate (Flonase Allergy Relief) 50 mcg/actuation spray,suspension Discontinued 2 SPRAY INTRANASAL DAILY December 04, 2020 12:45pm August 06, 2022 10:27am administer into each nostril gabapentin 100 mg oral capsule (8 sources) Anti-epileptic Agent Start: 05-13-2018 End: 06-28-2018 take 2 capsules by mouth twice daily as needed for pain Gabapentin 100 mg capsule Discontinued 200 mg PO TWICE A DAY as needed for pain 30 May 13, 2018 12:00am June 28, 2018 1:40pm Start: 05-13-2018 End: 06-28-2018 take 200 mg by mouth twice daily Gabapentin Discontinued 200 MG PO TWICE A DAY May 12, 2018 11:00pm June 28, 2018 12:40pm lisinopril 40 mg oral tablet (20 sources) Angiotensin Converting Enzyme Inhibitor Start: 05-09-2022 End: 11-01-2024 take 1 tablet by mouth once daily Lisinopril 40 mg tablet Discontinued 40 mg PO DAILY 90 3 November 02, 2023 11:56am November 03, 2023 9:45am Start: 09-22-2019 End: 05-09-2022 take 1 tablet by mouth once daily Lisinopril 30 mg tablet Discontinued 30 mg PO DAILY 90 3 October 03, 2021 9:54am May 09, 2022 10:52am Start: 12-25-2014 End: 09-22-2019 take 1 tablet by mouth once daily Lisinopril 20 mg tablet Discontinued 20 mg PO DAILY 90 3 September 13, 2019 12:03pm September 22, 2019 2:20pm Comment on above: Take 40 mg by mouth once daily. LORazepam 1 mg oral tablet (20 sources) Benzodiazepine Start: 0 End: take 1 tablet by mouth at bedtime as needed for anxiety Lorazepam 1 mg tablet Discontinued 1 mg PO AT BEDTIME as needed for anxiety 90 0 July 17, 2022 3:58pm October 29, 2022 9:39am Start: 02-16-2018 End: 05-13-2018 take 1 tablet by mouth at bedtime as needed for anxiety Lorazepam 1 mg tablet Discontinued 1 mg PO AT BEDTIME as needed for anxiety 10 0 March 04, 2018 2:44pm May 13, 2018 3:27pm Comment on above: TAKE 1 TABLET BY SAMI TH EVERY DAY AT BEDTIME NEEDED FOR ANXIETY methylPREDNISolone 4 mg oral tablet (8 sources) Corticosteroid Start: 2018 End: 2018 take 1 tablet by mouth once Methylprednisolone (Medrol (Cheko)) 4 mg tablets,dose pack Discontinued 0 PO per package directions 21 0 May 13, 2018 12:00am June 28, 2018 1:39pm PO PER PKG DIR omeprazole 20 mg delayed release oral tablet (20 sources) Proton Pump Inhibitor Start: 2017 End: 2018 take 1 tablet by mouth once daily as needed Omeprazole 20 mg tablet,delayed release (DR/EC) Discontinued 20 mg PO DAILY as needed May 13, 2018 3:27pm June 28, 2018 1:40pm ondansetron 4 mg disintegrating oral tablet (12 sources) Serotonin-3 Receptor Antagonist Start: 2022 End: 2023 take 1 tablet by mouth every eight hours as needed for nausea Ondansetron 4 mg tablet,disintegrating Discontinued 4 mg PO EVERY 8 HOURS NEEDED as needed for Nausea 20 0 August 02, 2022 12:00am April 28, 2023 9:27am Comment on above: TAKE 1 TABLET ORALLY EVERY 8 HOURS NEEDED NEEDED FOR NAUSEA oseltamivir 75 mg oral capsule (7 sources) Neuraminidase Inhibitor Start: 2021 End: 2022 take 1 capsule by mouth twice daily Oseltamivir (Tamiflu) 75 mg capsule Discontinued 75 mg PO TWICE A DAY 10 5 0 February 07, 2022 1:00am February 11, 2022 1:00am February 12, 2022 1:03am simvastatin 20 mg oral tablet (20 sources) HMG-CoA Reductase Inhibitor Start: 2014 End: 2024 take 1 tablet by mouth at bedtime Simvastatin 20 mg tablet Discontinued 20 mg PO AT BEDTIME 90 3 November 02, 2023 11:56am November 03, 2023 9:45am Comment on above: Take 20 mg by mouth daily at bedtime. valACYclovir 1000 mg oral tablet (8 sources) Herpesvirus Nucleoside Analog DNA Polymerase Inhibitor, Herpes Simplex Virus Nucleoside Analog DNA Polymerase Inhibitor, Herpes Zoster Virus Nucleoside Analog DNA Polymerase Inhibitor Start: 2018 End: 2018 Valacyclovir 1 gram tablet Discontinued 1000 mg PO Q8H May 13, 2018 12:00am June 28, 2018 1:39pm Start: 05-13-2018 End: 06-28-2018 take 1000 mg by mouth every eight hours Valacyclovir Discontinued 1000 MG PO Q8H May 12, 2018 11:00pm June 28, 2018 12:39pm Problems Active Problems Problem Classification Problem Date Documented Da te Episodic/Chronic Abdominal pain (7 sources) Epigastric pain; Translations: [Abdominal pain, epigastric] 08-06-2022 Episodic Biliary tract disease (8 sources) Biliary colic; Translations: [Calculus of bile duct without cholangitis or cholecystitis without obstruction] 12-21-2017 Episodic Disorders of lipid metabolism (12 sources) Hypercholesterolemi a; Translations: [Pure hypercholesterolemi a, unspecified] Onset: 05-08-2024 10-02-2020 Chronic Diverticulosis and diverticulitis (3 sources) Diverticulitis; Translations: [Diverticulitis of intestine, part unspecified, without perforation or abscess without bleeding] 08-21-2023 Chronic Esophageal disorders (12 sources) Gastric reflux; Translations: [Gastro-esophageal reflux disease without esophagitis] Onset: 09-10-2022 01-25-2019 Chronic Essential hypertension (16 sources) Hypertensive disorder; Translations: [Essential (primary) hypertension] Onset: 05-03-2024 Chronic Headache; including migraine (8 sources) Chronic headache disorder; Translations: [Chronic headache] 12-21-2017 Episodic Immunizations and screening for infectious disease (8 sources) Contact with or exposure to other viral diseases; Translations: [Exposure to COVID-19 virus] 11-30-2019 Episodic Influenza (7 sources) Influenza due to Influenza A virus; Translations: [Influenza due to other identified influenza virus with other respiratory manifestations] 02-07-2022 Episodic Mood disorders (13 sources) Depressive disorder; Translations: [Depression] Onset: 05-03-2024 Chronic Osteoporosis (13 sources) Osteoporosis; Translations: [Age-related osteoporosis without current pathological fracture] Onset: 09-20-2024 01-25-2019 Chronic Other and unspecified benign neoplasm (1 source) History of polyp of colon; Translations: [Personal history of colonic polyps] 08-20-2022 Episodic Other connective tissue disease (1 source) Other specified soft tissue disorders; Translations: [Swelling of limb] 12-29-2022 Episodic Other connective tissue disease (1 source) Pain in left foot; Translations: [Pain in limb] 12-29-2022 Episodic Other gastrointestinal disorders (2 sources) Diarrhea; Translations: [Diarrhea, unspecified] 11-18-2022 Episodic Other gastrointestinal disorders (2 sources) Abdominal bloating; Translations: [Abdominal distension (gaseous)] 09-10-2022 Episodic Other liver diseases (1 source) Steatosis of liver; Translations: [Fatty (change of) liver, not elsewhere classified] 11-18-2022 Chronic Other lower respiratory disease (2 sources) Dyspnea; Translations: [Shortness of breath] 11-01-2024 Episodic Other lower respiratory disease (2 sources) Shortness of breath; Translations: [Shortness of breath] Onset: 11-01-2024 Episodic Other nervous system disorders (8 sources) Mortons neuroma of left foot; Translations: [Lesion of plantar nerve, left lower limb] 09-13-2019 Chronic Other nervous system disorders (1 source) Anesthesia of skin; Translations: [Disturbance of skin sensation] 12-29-2022 Episodic Other nutritional; endocrine; and metabolic disorders (2 sources) Abnormal weight loss; Translations: [Loss of weight] 08-06-2022 Episodic Other skin disorders (8 sources) Seborrheic keratosis; Translations: [Other seborrheic keratosis] 04-03-2020 Episodic Other upper respiratory infections (20 sources) Acute pharyngitis; Translations: [Sinusitis] Onset: 05-22-2016 10-16-2016 Episodic Poisoning by other medications and drugs (7 sources) Poisoning by unspecified drugs, medicaments and biological substances, accidental (unintentional), initial encounter; Translations: [Accidental overdose] 07-26-2022 Episodic Skin and subcutaneous tissue infections (3 sources) Cellulitis of skin; Translations: [Cellulitis, unspecified] 05-28-2024 Episodic Spondylosis; intervertebral disc disorders; other back problems (8 sources) Low back pain; Translations: [Lumbar back pain] 11-11-2018 Episodic Comment on above: I instructed this pa tient in doing specific sacral lift exercises Unclassified (4 sources) Encounter for screening for malignant neoplasm of colon; Translations: [Encounter for screening mammogram for malignant neoplasm of breast] Onset: 12-06-2014 12-06-2014 Episodic Viral infection (8 sources) Herpes zoster; Translations: [Zoster without complications] 05-13-2018 Episodic Past or Other Problems Problem Classification Problem Date Documented Da te Episodic/Chronic Other and unspecified benign neoplasm (1 source) Personal history of colonic polyps; Translations: [History of colonic polyps] Onset: 08-20-2022 Episodic Other gastrointestinal disorders (3 sources) Diarrhea, unspecified; Translations: [Diarrhea] Onset: 08-20-2022 08-06-2022 Episodic Other gastrointestinal disorders (1 source) Abdominal distension (gaseous); Translations: [Postprandial bloating] Onset: 09-10-2022 Episodic Results Test Name Value Interpretation Reference Range Facility Internal Medicine Office Vis itocatrachita 11-01-2024 Internal Medicine Office Visit [facility] Internal Medicine [address] [place] [address] [place] [address] OFFICE VISIT Date of Service: 11/01/24 MR#: [id number] Acct: [id number] Name: ADONISKATYA ANN Rep #: [id number] 05 : 1955 Provider: Dr. 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 Required: No Accompanied by: Self Is patient in pain?: No Allergies sulfamethoxazole (From Bactrim) Allergy (Verified 11/01/24 08:54) Hives trimethoprim (From Bactrim) Allergy (Verified 11/01/24 08:54) Hives morphine Adverse Reaction (Verified 11/01/24 08:54) Low blood pressure Medications ???Medication ???Instructions ???Recorded ???Confirmed ???Type carvedilol 3.125 mg tablet (Coreg) 3.125 mg PO DAILY #90 tabs 11/0111/01/24 Rx lisinopril 40 mg tablet 40 mg PO DAILY #90 tabs 11/01/24 0 11/01/24 Rx lorazepam 1 mg tablet 1 mg PO QHS PRN anxiety #90 tabs 0 11/01/24 11/01/24 Rx pantoprazole 40 mg tablet,delayed 40 mg PO QHS #90 TABLETS 11/01/24 11/01/24 Rx release sertraline 100 mg tablet 100 mg PO DAILY #90 TABLETS 11/01/24 Rx simvastatin 20 mg tablet 20 mg PO QHS #90 tabs 11/01/24 Rx Have you fallen in the past year?: No Nurse's Note: doing well [facility] Medical History Influenza A High cholesterol High blood pressure Chronic headaches Depression Surgical History History of colonoscopy History of orthopedic surgery History of tubal ligation History of gynecologic surgery Family History Mother Diabetes Heart disease Hypertension Myocardial infarction Father Myocardial infarction Brother Hypertension Diabetes Sister Diabetes Hypertension Grandfather Alzheimer's dementia Cancer Grandmother Fabiana Gehrigs disease Grandfather Heart disease Aunt Breast cancer Social History Smoking Status: Former smoker alcohol intake: never substance use type: does not use what type of physical activity do you participate in: none HPI HPI Chief Complaint: fu Details: KATYA LAMB, is a 69 F who presents to the office today for a routine six month check up she feels well but she has been more tired and short of breath than usual. She has 2 sisters who have had triple bypass surgeries and she is concerned that she may have some cardiac problems that have gone undetected at this point. ROS Const Constitutional: No body ache, excessive sweating, fatigue, fever(s), frequent falls, headache(s), snoring, weakness, weight change, sleep problems or change in appetite Eyes Eyes: No blurry vision, change in vision, eye pain or Light sensitivity ENT ENT: No abnormal hearing, ear or mastoid pain, tinnitus, nasal congestion, headache(s), neck pain or sore throat Resp Respiratory: No cough, shortness of breath, snoring or wheezing Cardio Cardiology: No chest pain at rest, chest pain with exertion, excessive sweating, shortness of breath, dyspnea on exertion, lightheadedness, orthopnea or palpitations Gastro GI: No abdominal pain, change in bowel habits, constipation, cramping, diarrhea, nausea/dyspepsia or vomiting Genitourinary-Female: No burning urination, painful urination, urinary incontinence, urinary frequency, blood in urine, abnormal periods or pelvic pain Musc Musculoskeletal: No abnormal gait, joint pain, back pain, limited range of motion, neck pain, numbness, stiffness, tingling or Arthritis Skin Skin: No dry skin, redness, lesions, itchy eyes, rash or wounds Neuro Neurology: No abnormal gait, abnormal hearing, abnormal speech, dizziness, weakness, frequent falls, headache(s), memory loss, numbness or tingling Psych Psychiatric: No anxiety, No change in appetite, No depression, No memory loss and No Thoughts of harming yourself/Others Endo Endocrine: No cold intolerance, excessive sweating, fatigue, flushing, heat intolerance, increased thirst/drinking, increased hunger or weight change Aller/Imm Allergy/Immunologic: No itchy eyes, seasonal allergy symptoms, hives or wheezing Chapito/Lymp Hematologic/Lymphatic: No easy bleeding, easy bruising or enlarged lymph nodes Exam Const General: cooperative and no acute distr (more content not included)... Normal [facility] Office Visit Reporton 2024 Office Visit Report [facility] [address] [place] [address] OFFICE VISIT Date of Service: 09/06/24 MR#: [id number] Acct: [id number] Patient: KATYA LAMB Rep #: [id number] : 1955 Provider: FABIENNE NURSE Age/Sex: 69/F Location: [facility] [place].[facility] Status: Signed Intake Vital Signs 05/03/24 08:53 Height 5 ft 8 in Intake Visit Reasons: PROLIA-$0 Chief Complaint: rash Allergies sulfamethoxazole (From Bactrim) Allergy (Verified 05/28/24 09:52) Hives trimethoprim (From Bactrim) Allergy (Verified 05/28/24 09:52) Hives morphine Adverse Reaction (Verified 05/28/24 09:52) Low blood pressure Have you fallen in the past year?: No Office Procedures Injections Procedure performed by: Ester Perry Lot number: [id number] [employer]: [employer] date: 02/08/27 Dose of injection: 1.0 ML Site of injection: other (LEFT ARM) Is this a patient provided medication?: No Additional Details: DX OSTEOPOROSIS BUY AND BILL $0 Office Meds Prolia 60 mg/mL subcutaneous syringe Performing Provider: Jeancarlos Sanchez DO Performing Location: [facility] Administered by: Ester Perry LPN on 09/06/24 14:09 Dose Route Admin Location Dispensed Lot Number Expiration Date [facility] ufacturer 60 mg subcut left arm 1 mL [id number] 02/08/27 84995-823-32 [employer] Comments: pt presented to office for her PROLIA REQUESTED LEFT ARM FOR SUBCUT INJECTION. TOLERATED WELL. PT STATES THERE ARE NO CHANGES TO HER INSURANCE. BUY and BILL $0 dx OSTEOPOROSIS Assessment and Plan Assessment and Plan Orders: Orders Prolia Injection Today M81.0 - Age-related osteoporosis without current pathological fracture Clinical Quality Measures Falls Risk Screening/Assistive Devices Have you fallen in the past year?: No 09/06/24 1413 Date Shital Chávez Signature: Date (if applicable) CC: Normal [facility] Urgent Care Visit Reporton 0 05-28-2024 Urgent Care Visit Report [facility] [address] , [address] [place] [address] OFFICE VISIT Date of Service: 05/28/24 MR#: [id number] Acct: [id number] Name: KATYA LAMB JANNA Rep #: [id number] : 1955 Provider: RADHIKA Mota Age/Sex: 68/F Location: [facility] [place].[facility] Status: Signed Intake Vital Signs 05/03/24 08:53 05/28/24 09:31 Height 5 ft 8 in Weight: 218 lb 8 oz BMI 33.2 BP 118/76 134/82 H Blood Pressure Location Lt brachial Lt brachial Position Sitting Sitting Respiration 16 16 Pulse 78 79 Pulse Source Monitor NIBP Temp 97.2 F L 98.2 F Temp Source Temporal Oral Pulse Oximetry (%) 96 97 Oxygen Delivery Method room air room air Intake Visit Reasons: RED/SORE BEHIND L EAR Chief Complaint: rash Hammerer Helper Required: No Is patient in pain?: Yes Allergies sulfamethoxazole (From Bactrim) Allergy (Verified 05/28/24 09:52) Hives trimethoprim (From Bactrim) Allergy (Verified 05/28/24 09:52) Hives morphine Adverse Reaction (Verified 05/28/24 09:52) Low blood pressure Medications ???Medication ???Instructions ???Recorded ???Confirmed ???Type carvedilol 3.125 mg tablet (Coreg) 3.125 mg PO DAILY #90 tabs 11/0205/28/24 Rx lisinopril 40 mg tablet 40 mg PO DAILY #90 tabs 11/03/23 0 05/28/24 Rx lorazepam 1 mg tablet 1 mg PO QHS PRN anxiety #90 tabs 0 11/03/23 05/28/24 Rx simvastatin 20 mg tablet 20 mg PO QHS #90 tabs 11/03/23 Rx pantoprazole 40 mg tablet,delayed 40 mg PO QHS #90 TABLETS 11/17/23 05/28/24 Rx release sertraline 100 mg tablet 100 mg PO DAILY #90 TABLETS 05/28/24 Rx cephalexin 500 mg capsule 500 mg PO BID 7 days #14 caps 05/1005/28/24 Rx Is last menstrual period known: No Post menopausal: Yes Patient : No Have you fallen in the past year?: No Nurse's Note: rash below left earlobe with pain and itching. pain into ear canal as well. s/s x 24 hours. denies additional areas of concern PFS Medical History Influenza A High cholesterol High blood pressure Chronic headaches Depression Surgical History History of colonoscopy History of orthopedic surgery History of tubal ligation History of gynecologic surgery Family History Mother Diabetes Heart disease Hypertension Myocardial infarction Father Myocardial infarction Brother Hypertension Diabetes Sister Diabetes Hypertension Grandfather Alzheimer's dementia Cancer Grandmother Fabiana Gehrigs disease Grandfather Heart disease Aunt Breast cancer Social History Smoking Status: Former smoker alcohol intake: never substance use type: does not use what type of physical activity do you participate in: none HPI HPI Chief Complaint: rash Details: KATYA LAMB, is a 68 F who presents to the office today for rash -rash started yesterday morning- woke up and noticed tenderness behind left ear- as day went on developed lumps and bumps and started itching- today same but more red- inside feels tender -no fever or uri- chills last night -no other sx -denies any recent air travel or swimming -tried so far cortisone cream -does admit was doing yard work this wk- does not recall getting bit by anything ROS Const Constitutional: Positive for other (ROS negative x6 except what was placed in HPI) Exam Const General: cooperative, comfortable and no acute distress Orientation: alert, awake and oriented x3 [facility] Head: normal to inspection and normocephalic Ears: hearing grossly normal bilaterally, external ears normal and TM's normal bilaterally Face and sinus: normal facial exam, sinuses nontender and face symmetric Mouth: oral mucosae normal, lip normal, tongue normal, oropharynx normal and moist mucous membranes Throat: posterior oropharynx normal, tonsils normal and uvula midline Other: -behind left ear just below lower part of lobe with + swelling, bright pink, warmth, tenderness to touch- no swollen lymph node Neck Neck: normal visual inspection, full ROM and no lymphadenopathy Resp Effort Inspection: normal respiratory effort, able to speak in complete sentences and symmetric chest movement Auscultation: Bilateral: Clear to Auscultation, Left: Clear to Auscultation and Right: Clear to Auscultation Cardio Rate: regular rate Rhythm: regular rhythm Heart Sounds: S1 normal and S2 normal GI Auscultation: normal bowel sounds Palpation: soft Skin General: no rashes or lesions noted and turgor normal Neuro General: patient alert, patient awake and patient oriented x3 Cognition: normal cognition Speech: speech normal Ps (more content not included)... Normal [facility] Anion gap in Serum or Plasma Ordered By: Jeancarlos Sanchez on 05-03-2024 Anion gap [Moles/Vol] 10 mmol/L 5-15 [facility] BUN/creatinine ratioOrdered By: Jeancarlos Sanchez on 05-03-2024 Urea nitrogen/Creatinine [Mass ratio] 17.8 mg/mg 10-20 [facility] Bilirubin, totalOrdered By: Jeancarlos Sanchez on 05-03-2024 Bilirubin [Mass/Vol] 0.38 mg/dL 0.00-1.30 [facility] Calculated very low density lipoprotein (VLDL) cholesterol measurementOrdered By: Jeancarlos Sanchez on 05-03-2024 VLDL Cholesterol 22 mg/dL 5-40 [facility] Carbon dioxide, total [Moles /volume] in Central venous bloodOrdered By: Jeancarlos Sanchez on 05-03-2024 CO2 [Moles/Vol] 24.3 mmol/L 21.0-32.0 [facility] Chloride assayOrdered By: Do kira Sanchez on 05-03-2024 Chloride [Moles/Vol] 103 mmol/L 98-108 [facility] Comprehensive Metabolic Prof ilon 05-03-2024 Albumin [Mass/Vol] 4.3 g/dL Normal 3.4-4.8 [facility] Comment on above: Performed By: #### L 500.4050, L500.4100 #### [facility] [address] [place], [address] Albumin/Globulin [Mass ratio] 1.5 {ratio} Normal 0.9-2.4 [facility] Comment on above: Performed By: #### L 500.4050, L500.4100 #### [facility] [address] [place], [address] ALK PHOS 69 U/L Normal 35-104 [facility] Comment on above: Performed By: #### L 500.4050, L500.4100 #### [facility] [address] [place], [address] ALT [Catalytic activity/Vol] 18 U/L Normal <=34 [facility] Comment on above: Performed By: #### L 500.4050, L500.4100 #### [facility] [address] [place], [address] AST [Catalytic activity/Vol] 21 U/L Normal <=31 [facility] Comment on above: Performed By: #### L 500.4050, L500.4100 #### [facility] [address] [place], [address] Bilirubin [Mass/Vol] 0.38 mg/dL Normal 0.00-1.30 [facility] Comment on above: Performed By: #### L 500.4050, L500.4100 #### [facility] [address] [place], [address] BUN/CRE 17.8 RATIO Normal 10-20 [facility] Comment on above: Performed By: #### L 500.4050, L500.4100 #### [facility] [address] [place], [address] Calcium [Mass/Vol] 9.1 mg/dL Normal 7.6-11.0 [facility] Comment on above: Performed By: #### L 500.4050, L500.4100 #### [facility] [address] [place], [address] Chloride [Moles/Vol] 103 mmol/L Normal 98-108 [facility] Comment on above: Performed By: #### L 500.4050, L500.4100 #### [facility] [address] [place], [address] CO2 [Moles/Vol] 24.3 mmol/L Normal 21.0-32.0 [facility] Comment on above: Performed By: #### L 500.4050, L500.4100 #### [facility] [address] [place], [address] Creatinine [Mass/Vol] 0.99 mg/dL Normal 0.70-1.20 [facility] Comment on above: Performed By: #### L 500.4050, L500.4100 #### [facility] [address] [place], [address] GAP 10 Normal 5-15 [facility] Comment on above: Performed By: #### L 500.4050, L500.4100 #### [facility] [address] [place], [address] GFR/1.73 sq M.predicted among non-blacks MDRD (S/P/Bld) [Vol rate/Area] 62 mL/min/{1.73_m2} Normal >60 [facility] Comment on above: Result Comment: mL/m in/1.73m2 CKD-EPI Creatinine Equation (2020) Performed By: #### L 500.4050, L500.4100 #### [facility] [address] [place], [address] Globulin (S) [Mass/Vol] 2.8 g/dL Normal 2.2-4.2 [facility] Comment on above: Performed By: #### L 500.4050, L500.4100 #### [facility] [address] [place], [address] Glucose [Mass/Vol] 101 mg/dL High 70-99 [facility] Comment on above: Performed By: #### L 500.4050, L500.4100 #### [facility] [address] [place], [address] Potassium [Moles/Vol] 4.8 mmol/L Normal 3.3-5.1 [facility] Comment on above: Performed By: #### L 500.4050, L500.4100 #### [facility] [address] [place], [address] Sodium [Moles/Vol] 137 mmol/L Normal 133-145 [facility] Comment on above: Performed By: #### L 500.4050, L500.4100 #### [facility] [address] [place], [address] T PROT 7.2 g/dL Normal 5.9-8.4 [facility] Comment on above: Performed By: #### L 500.4050, L500.4100 #### [facility] [address] [place], [address] Urea nitrogen [Mass/Vol] 18 mg/dL Normal 4-19 [facility] Comment on above: Performed By: #### L 500.4050, L500.4100 #### [facility] [address] [place], [address] GFR/1.73 sq M.predicted antoine g non-blacks MDRD (S/P/Bld) [Vol rate/Area]Ordered By: Jeancarlos Sanchez on 05-03-2024 Estimated GFR (MDRD) Non-Af Amer 62 >60 [facility] Comment on above: mL/min/1.73m2 CKD-EP I Creatinine Equation (2020) Internal Medicine Office Vis mikal 05-03-2024 Internal Medicine Office Visit [facility] [address] [place] [address] [place] [address] OFFICE VISIT Date of Service: 05/03/24 MR#: [id number] Acct: [id number] Name: KATYA LAMB JANNA Rep #: [id number] : 1955 Provider: Dr. Jeancarlos vuong, DO Age/Sex: 68/F Location: [facility] [place].[facility] Status: Signed Intake Vital Signs 11/03/23 09:30 04/06/24 14:00 05/03/24 08:53 Height 5 ft 8 in 5 ft 8 in 5 ft 8 in Weight: 218 lb 8 oz BMI 33.2 BP 118/76 Blood Pressure Location Lt brachial Position Sitting Respiration 16 Pulse 78 Pulse Source Monitor Temp 97.2 F L Temp Source Temporal Pulse Oximetry (%) 96 Oxygen Delivery Method room air Intake Visit Reasons: 6 m fu Chief Complaint: fu Hammerer Helper Required: No Accompanied by: Self Is patient in pain?: No Allergies sulfamethoxazole (From Bactrim) Allergy (Verified 05/03/24 08:49) Hives trimethoprim (From Bactrim) Allergy (Verified 05/03/24 08:49) Hives morphine Adverse Reaction (Verified 05/03/24 08:49) Low blood pressure Medications ???Medication ???Instructions ???Recorded ???Confirmed ???Type carvedilol 3.125 mg tablet (Coreg) 3.125 mg PO DAILY #90 tabs 11/0205/03/24 Rx lisinopril 40 mg tablet 40 mg PO DAILY #90 tabs 11/03/23 0 05/03/24 Rx lorazepam 1 mg tablet 1 mg PO QHS PRN anxiety #90 tabs 0 11/03/23 05/03/24 Rx sertraline 100 mg tablet 100 mg PO DAILY #90 tabs 11/03/23 05/03/24 Rx simvastatin 20 mg tablet 20 mg PO QHS #90 tabs 11/03/23 Rx pantoprazole 40 mg tablet,delayed 40 mg PO QHS #90 TABLETS 11/17/23 05/03/24 Rx release Have you fallen in the past year?: No PFSH Medical History Influenza A High cholesterol High blood pressure Chronic headaches Depression Surgical History History of colonoscopy History of orthopedic surgery History of tubal ligation History of gynecologic surgery Family History Mother Diabetes Heart disease Hypertension Myocardial infarction Father Myocardial infarction Brother Hypertension Diabetes Sister Diabetes Hypertension Grandfather Alzheimer's dementia Cancer Grandmother Fabiana Gehrigs disease Grandfather Heart disease Aunt Breast cancer Social History Smoking Status: Former smoker alcohol intake: never substance use type: does not use what type of physical activity do you participate in: none HPI HPI Chief Complaint: fu Details: KATYA LAMB, is a 68 F who presents to the office today for ROS Const Constitutional: No body ache, excessive sweating, fatigue, fever(s), frequent falls, headache(s), snoring, weakness, weight change, sleep problems or change in appetite Eyes Eyes: No blurry vision, change in vision, eye pain or Light sensitivity ENT ENT: No abnormal hearing, ear or mastoid pain, tinnitus, nasal congestion, headache(s), neck pain or sore throat Resp Respiratory: No cough, shortness of breath, snoring or wheezing Cardio Cardiology: No chest pain at rest, chest pain with exertion, excessive sweating, shortness of breath, dyspnea on exertion, lightheadedness, orthopnea or palpitations Gastro GI: No abdominal pain, change in bowel habits, constipation, cramping, diarrhea, nausea/dyspepsia or vomiting Genitourinary-Female: No burning urination, painful urination, urinary incontinence, urinary frequency, blood in urine, abnormal periods or pelvic pain Musc Musculoskeletal: No abnormal gait, joint pain, back pain, limited range of motion, neck pain, numbness, stiffness, tingling or Arthritis Skin Skin: No dry skin, redness, lesions, itchy eyes, rash or wounds Neuro Neurology: No abnormal gait, abnormal hearing, abnormal speech, dizziness, weakness, frequent falls, headache(s), memory loss, numbness or tingling Psych Psychiatric: No anxiety, No change in appetite, No depression, No memory loss and No Thoughts of harming yourself/Others Endo Endocrine: No cold intolerance, excessive sweating, fatigue, flushing, heat intolerance, increased thirst/drinking, increased hunger or weight change Aller/Imm Allergy/Immunologic: No itchy eyes, seasonal allergy symptoms, hives or wheezing Chapito/Lymp Hematologic/Lymphatic: No easy bleeding, easy bruising or enlarged lymph nodes Exam Const General: cooperative and no acute distress Nutritional Appearance: overweight HENMT Head: normal to inspection Ears: hearing grossly normal bilaterally and TM's normal bilaterally Nose: external nose normal Face and sinus: sinus tenderness maxillary Mouth: oral mucosae normal Throat: posterior oropharynx normal Neck Neck: normal visual inspection Resp Eff (more content not included)... Normal [facility] LDL calc ser/plasOrdered By: Jeancarlos Sanchez on 05-03-2024 LDL Cholesterol, Calculated 84 mg/dL [facility] Comment on above: Dccbotcnkm=216-691 m g/dL & Higher Nsbh=406 mg/dL or greater Laboratory - Chemistry and C hemistry - challengeOrdered By: Jeancarlos Sanchez on 05-03-2024 AST [Catalytic activity/Vol] 21 U/L <32 [facility] Lipid Profileon 05-03-2024 CHOL:HDL 3.27 Normal [facility] Comment on above: Performed By: #### L 500.4050, L500.4100 #### [facility] [address] [place], [place], [id number] Cholesterol [Mass/Vol] 153 mg/dL Normal <=200 [facility] Comment on above: Result Comment: Chol esterol level, Desirable <200 mg/dL Borderline high cholesterol 200-239 mg/dL High cholesterol >=240 mg/dL Recommendations of the NCEP Adult Treatment Panel for the following risk-cutoff thresholds for the [place] population. Performed By: #### L 500.4050, L500.4100 #### [facility] [address] [place], [address] Cholesterol in HDL [Mass/Vol] 47 mg/dL Normal [facility] Comment on above: Result Comment: Dai onal Cholesterol Education Program (NCEP) guidelines: <40 mg/dL: Low HDL-cholesterol (major risk factor for CHD) >= 60 mg/dL: High HDL-cholesterol (negative risk factor for CHD) HDL-cholesterol is affected by a number of factors, e.g. smoking, exercise, hormones, sex and age. Performed By: #### L 500.4050, L500.4100 #### [facility] [address] [place], [address] Cholesterol in LDL [Mass/Vol] 84 mg/dL Normal [facility] Comment on above: Result Comment: Bord fxuqgg=455-203 mg/dL Higher Hckk=348 mg/dL or greater Performed By: #### L 500.4050, L500.4100 #### [facility] [address] [place], [address] Cholesterol in VLDL [Mass/Vol] 22 mg/dL Normal 5-40 [facility] Comment on above: Performed By: #### L 500.4050, L500.4100 #### [facility] [address] [place], [address] Triglyceride [Mass/Vol] 109 mg/dL Normal [facility] Comment on above: Result Comment: The drugs N-Acetylcysteine and Metamizole may falsely depress this assay. Normal range: <150 mg/dL Borderline High: 150-199 mg/dL High: 200-499 mg/dL Very High: >500 mg/dL Performed By: #### L 500.4050, L500.4100 #### [facility] [address] [place], [address] Potassium (Unsp spec) [Mass/ Vol]Ordered By: Jeancarlos Sanchez on 05-03-2024 Potassium [Moles/Vol] 4.8 mmol/L 3.3-5.1 [facility] Screening total cholesterol/ high density lipoprotein (HDL) cholesterol ratioOrdered By: Jeancarlos Sanchez on 05-03-2024 Cholesterol.total/Chol esterol in HDL [Mass ratio] 3.27 {ratio} [facility] Serum creatinine measurement (mass/volume)Ordered By: Jeancarlos Sanchez on 05-03-2024 Creatinine [Mass/Vol] 0.99 mg/dL 0.70-1.20 [facility] Serum globulin measurementOr dered By: Jeancarlos Sanchez on 05-03-2024 Globulin (S) [Mass/Vol] 2.8 g/dL 2.2-4.2 [facility] Serum glucose measurement (m ass/volume)Ordered By: Jeancarlos Sanchez on 05-03-2024 Glucose [Mass/Vol] 101 mg/dL High 70-99 [facility] Serum or plasma alanine colmenares otransferase (ALT) measurementOrdered By: Jeancarlos Sanchez on 05-03-2024 ALT [Catalytic activity/Vol] 18 U/L <35 [facility] Serum or plasma albumin ricky urement (mass/volume)Ordered By: Jeancarlos Sanchez on 05-03-2024 Albumin [Mass/Vol] 4.3 g/dL 3.4-4.8 [facility] Serum or plasma albumin/glob ulin mass ratioOrdered By: Jeancarlos Sanchez 05-03-2024 Albumin/Globulin [Mass ratio] 1.5 {ratio} 0.9-2.4 [facility] Serum or plasma alkaline rudy sphatase measurementOrdered By: Jeancarlos Sanchez 05-03-2024 ALP [Catalytic activity/Vol] 69 U/L 35-104 [facility] Serum or plasma calcium ricky urement (mass/volume)Ordered By: Jeancarlos Sanchez 05-03-2024 Calcium [Mass/Vol] 9.1 mg/dL 7.6-11.0 [facility] Serum or plasma cholesterol in HDL measurement (mass/volume)Ordered By: Jeancarlos Sanchez on 05-03-2024 Cholesterol in HDL [Mass/Vol] 47 mg/dL >40 [facility] Comment on above: National Cholesterol Education Program (NCEP) guidelines:<40 mg/dL: Low HDL-cholesterol (major risk factor for CHD)>= 60 mg/dL: High HDL-cholesterol (negative risk factor for CHD)HDL-cholesterol is affected by a number of factors, e.g. smoking, exercise, hormones, sex and age. Serum or plasma cholesterol measurement (mass/volume)Ordered By: Jeancarlos Sanchez on 05-03-2024 Cholesterol [Mass/Vol] 153 mg/dL <201 [facility] Comment on above: Cholesterol level, D esirable <200 mg/dLBorderline high cholesterol 200-239 mg/dLHigh cholesterol >=240 mg/dLRecommendations of the NCEP Adult Treatment Panel for the following risk-cutoff thresholds for the [place] population. Serum or plasma urea nitroge n measurement (mass/volume)Ordered By: Jeancarlos Sanchez on 05-03-2024 Urea nitrogen [Mass/Vol] 18 mg/dL 4-19 [facility] Sodium levelOrdered By: Bandar Sanchez on 05-03-2024 Sodium [Moles/Vol] 137 mmol/L 133-145 [facility] Total proteinOrdered By: Bean Sanchez on 05-03-2024 Protein [Mass/Vol] 7.2 g/dL 5.9-8.4 [facility] Triglycerides measurementOrd ered By: Jeancarlos Sanchez on 05-03-2024 Triglyceride [Mass/Vol] 109 mg/dL <199 [facility] Comment on above: The drugs N-Acetylcy steine and Metamizole may falsely depress this assay. Normal range: <150 mg/dLBorderline High: 150-199 mg/dLHigh: 200-499 mg/dLVery High: >500 mg/dL Internal Medicine Office Vis itocatrachita 04-06-2024 Internal Medicine Office Visit [facility] [address] [place] [address] [address] [place] [address] OFFICE VISIT Date of Service: 04/06/24 MR#: [id number] Acct: [id number] Name: KATYA LAMB JANNA Rep #: [id number] : 1955 Provider: Dr. Jeancarlos vuong, DO Age/Sex: 68/F Location: [facility] [place].[facility] Status: Signed Intake Vital Signs 11/03/23 09:30 04/06/24 14:00 Height 5 ft 8 in 5 ft 8 in Weight: 220 lb 216 lb BMI 33.4 32.8 BP 122/76 H 130/72 H Blood Pressure Location Lt brachial Lt brachial Position Sitting Sitting Respiration 14 18 Pulse 79 83 Pulse Source Monitor Monitor Temp 98.2 F 97.8 F Temp Source Temporal Temporal Pulse Oximetry (%) 94 96 Oxygen Delivery Method room air room air Intake Visit Reasons: SINUS INFECTION Chief Complaint: SINUS INFECTION Is patient in pain?: No Allergies sulfamethoxazole (From Bactrim) Allergy (Verified 04/06/24 13:55) Hives trimethoprim (From Bactrim) Allergy (Verified 04/06/24 13:55) Hives morphine Adverse Reaction (Verified 04/06/24 13:55) Low blood pressure Medications ???Medication ???Instructions ???Recorded ???Confirmed ???Type carvedilol 3.125 mg tablet (Coreg) 3.125 mg PO DAILY #90 tabs 11/0204/06/24 Rx lisinopril 40 mg tablet 40 mg PO DAILY #90 tabs 11/03/23 0 04/06/24 Rx lorazepam 1 mg tablet 1 mg PO QHS PRN anxiety #90 tabs 0 11/03/23 04/06/24 Rx sertraline 100 mg tablet 100 mg PO DAILY #90 tabs 11/03/23 04/06/24 Rx simvastatin 20 mg tablet 20 mg PO QHS #90 tabs 11/03/23 Rx pantoprazole 40 mg tablet,delayed 40 mg PO QHS #90 TABLETS 11/17/23 04/06/24 Rx release amoxicillin 500 mg capsule 500 mg PO TID #21 caps 04/06/24 Rx benzonatate 200 mg capsule 200 mg PO TID #20 caps 04/06/24 Rx Have you fallen in the past year?: No Nurse's Note: pt reports that she became ill with a cough and sinus congestion last thursday states she thought it was getting better but this morning woke up with "sinus pressure" feels it is worsening PFSH Medical History Influenza A High cholesterol High blood pressure Chronic headaches Depression Surgical History History of colonoscopy History of orthopedic surgery History of tubal ligation History of gynecologic surgery Family History Mother Diabetes Heart disease Hypertension Myocardial infarction Father Myocardial infarction Brother Hypertension Diabetes Sister Diabetes Hypertension Grandfather Alzheimer's dementia Cancer Grandmother Fabiana Gehrigs disease Grandfather Heart disease Aunt Breast cancer Social History Smoking Status: Former smoker alcohol intake: never substance use type: does not use what type of physical activity do you participate in: none HPI HPI Chief Complaint: SINUS INFECTION Details: KATYA LAMB, is a 68 F who presents to the office today for an increasing amount of sinus pressure and headache. About a week to 10 days ago she started with a little bit of congestion and a cough and she thought she was getting better until this morning when the cough was no better and the congestion and the headache was much worse. She has not been running fever and she did do a COVID test at home which was negative. ROS Const Constitutional: No body ache, chills, excessive sweating, fatigue, fever(s), frequent falls, headache(s), snoring, weight change, sleep problems, abnormal sleep pattern or change in appetite Eyes Eyes: No blurry vision, change in vision, eye pain or Light sensitivity ENT ENT: No abnormal hearing, ear or mastoid pain, tinnitus, nasal congestion, headache(s), neck pain or sore throat Resp Respiratory: No cough, shortness of breath, snoring or wheezing Cardio Cardiology: No chest pain at rest, chest pain with exertion, excessive sweating, shortness of breath, dyspnea on exertion, lightheadedness, orthopnea or palpitations Gastro GI: No abdominal pain, change in bowel habits, constipation, cramping, diarrhea, nausea/dyspepsia or vomiting Genitourinary-Female: No burning urination, painful urination, urinary incontinence, urinary frequency, abnormal vaginal bleeding or pelvic pain Musc Musculoskeletal: No abnormal gait, joint pain, back pain, limited range of motion, neck pain, numbness or tingling Skin Skin: No dry skin, redness, lesions, itchy eyes, rash or wounds Neuro Neurology: No abnormal gait, abnormal hearing, frequent falls, headache(s), memory loss, numbness or tingling Psych Psychiatric: No abnormal sleep pattern, No anxiety, No change in appetite, No irritability, No memory loss and No Thoughts of harming (more content not included)... Normal [facility] Office Visit Reporton 2024 Office Visit Report [facility] [address] [place] [address] OFFICE VISIT Date of Service: 02/25/24 MR#: [id number] Acct: [id number] Patient: KATYA LAMB Rep #: [id number] : 1955 Provider: FABIENNE NURSE Age/Sex: 68/F Location: [facility] Status: Signed Intake Vital Signs 11/03/23 09:30 Height 5 ft 8 in Weight: 220 lb BMI 33.4 BP 122/76 H Blood Pressure Location Lt brachial Position Sitting Respiration 14 Pulse 79 Pulse Source Monitor Temp 98.2 F Temp Source Temporal Pulse Oximetry (%) 94 Oxygen Delivery Method room air Intake Visit Reasons: prolia Chief Complaint: prolia injection Allergies sulfamethoxazole (From Bactrim) Allergy (Verified 11/03/23 09:25) Hives trimethoprim (From Bactrim) Allergy (Verified 11/03/23 09:25) Hives morphine Adverse Reaction (Verified 11/03/23 09:25) Low blood pressure Have you fallen in the past year?: No Office Procedures Injections Site of injection: Sub-Q Is this a patient provided medication?: No Office Meds Prolia 60 mg/mL subcutaneous syringe Performing Provider: Opal Staton MD Performing Location: [facility] Administered by: Melodie Verde MA on 02/25/24 09:08 Dose Route Admin Location Dispensed Lot Number Expiration Date [facility] Man ufacturer 60 mg subcut left SubQ 1 mL [id number] 08/08/26 31929-828-81 [employer] Assessment and Plan Assessment and Plan (1) Osteoporosis: Status: Chronic Qualifiers: Osteoporosis type: age-related Encounter type: subsequent encounter Fracture healing: with routine healing Orders: Orders Prolia Injection Today M81.0 - Age-related osteoporosis without current pathological fracture Clinical Quality Measures Falls Risk Screening/Assistive Devices Have you fallen in the past year?: No 02/25/2418 Date [facility]: Date (if applicable) CC: Normal [facility] SCRN MAMM (CAD)W/MAIA BILATo n 11-20-2023 SCRN MAMM (CAD)W/MAIA BILAT [facility] Services [address] [place] [address] SCRN MAMM (CAD)W/MAIA BILAT MR#: [id number] Acct: [id number] Name: KATYA LAMB JANNA Rep #: [id number] : 1955 F 68 From: Omsan Knapp MD PCP: Dr. Jeancarlos Sanchez DO Status: REG CL Study: SCRN MAMM (CAD)W/MAIA BILAT Date of Exam: 11/09 03/04 Exam# [id number] Ordering Dr: Jeancarlos Sanchez DO [id number] MAMMOGRAPHY - BILATERAL SCREENING 3-D TOMOSYNTHESIS REASON FOR EXAM: Female, 68 years old. screen PERTINENT HISTORY: No significant family history. TECHNIQUE: 2-D mammograms and 3-D Tomosynthesis of the breast (s) were performed. CAD was performed. COMPARISON: 05/21/2021 FINDINGS: The breast composition is composed of scattered fibroglandular density. Scattered benign calcifications are seen. No dense spiculated masses or suspicious microcalcifications are identified. No architectural distortion is identified. There is no skin thickening or retraction. There has been no significant change since the prior study. BI/SCRN MAMM (CAD)W/MAIA BILAT IMPRESSION: No mammographic signs of malignancy. Routine yearly mammograms recommended. ASSESSMENT CATEGORY: BIRADS Category 1: Negative. A letter regarding these results will be sent to the patient by the facility within 30 days. FOLLOW UP RECOMMENDATION: Yearly follow up mammogram recommended. (A) Approximately 10% of breast cancers are not detected by mammography. A normal mammogram should not delay biopsy of a clinically suspicious abnormality. Electronically Signed: Osman Knapp MD at 8:46 EDT , CC: Dr. Jeancarlos Sanchez, DO Account Supervisor: Signed [facility] 08-07-2023 CNPN Telephone (UCWSTR) KATYA LAMB ([id number]) 1955 F Date Time Provider Department 08/07/23 SAVITA BAILON [facility] During your visit today, we recorded the following information about you: Savita Bailon PA 08/07/2023 10:10 AM Signed Please contact patient and confirm she went to the ER and received treatment for her UTI. She does have bacteria in her urine, but it appears we sent to the emergency room. Stefany Wilcox MA 08/07/2023 2:36 PM Signed Per ER note, patient was treated with Augmentin for flare of diverticulitis. Spoke with providers, antibiotic prescribed should be sufficient to cover for UTI as well. Stefany Wilcox MA Allergies As of Date: 08/07/2023 Noted Allergy Reaction MORPHINE 12/06/2014 14 - Other: See Comments 12 - Shortness of Breath SULFAMETHOXAZOLE-TRIME THOPRIM 12/06/2014 14 - Other: See Comments TRIMETHOPRIM 01/04/2018 4 - Hives Date Reviewed: 08/05/2023 Reviewed by: Sonia Rudd MA - Fully Assessed Reason for Visit: Results [95] Prescriptions as of 08/07/2023 - sertraline (ZOLOFT) 100 mg tablet - carvedilol (COREG) 3.125 mg tablet TAKE 1 TABLET BY MOUTH TWICE A DAY MUST ADMINISTER WITH A MEAL/FOOD - lisinopril (ZESTRIL) 40 mg tablet Take 40 mg by mouth once daily. - LORazepam (ATIVAN) 1 mg tablet TAKE 1 TABLET BY MOUTH EVERY DAY AT BEDTIME NEEDED FOR ANXIETY - pantoprazole DR (PROTONIX) 40 mg tablet Take 40 mg by mouth daily at bedtime. - simvastatin (ZOCOR) 20 mg tablet Take 20 mg by mouth daily at bedtime. - denosumab (PROLIA) 60 mg/mL Inject 60 mg subcutaneously one time only. Facility-Administered Medications as of 08/07/2023 - lidocaine (PF) 10 mg/mL (1 %) 1-2 mg injection (XYLOCAINE) - lactated ringers iv infusion - lidocaine (PF) 10 mg/mL (1 %) 1-2 mg injection (XYLOCAINE) - lactated ringers iv infusion Problem List As Of Date: 08/07/2023 (None) Encounter Status:Closed by STEFANY WILCOX on 08/07/23 [facility] Bacteria Culton Bacteria identified Cx Nom (U) ORGANISM ID: 1 >=100,000 CFU/ml Escherichia coli ORGANISM ID: 1 (ESCHERICHIA COLI) -- ANTIBIOTIC INTERPRETATION URIEL STATUS REFERENCE RANGE -- Ampicillin S 8 F Susceptible <=8 , Intermediate >8 , Resistant >16 Cefazolin S <=4 F Susceptible 0-16 , Intermediate <0 or >16 , Resistant >16 For uncomplicated urinary tract infections, cefazolin results can be used to predict susceptibility or resistance to cephalexin. Ceftriaxone S <=1 F Susceptible <=1 , Intermediate >1 , Resistant >=4 Cefepime S <=1 F Susceptible <=2 , Susceptible-Dose Dependent >2 , Resistant >=16 Ertapenem S <=0.5 F Susceptible <=0.5 , Intermediate >.5 , Resistant >1 Meropenem S <=0.25 F Susceptible <=1 , Intermediate >1 , Resistant >2 Ampicillin/Sulbact S 4 F Susceptible <=8 , Intermediate >8 , Resistant >16 Piperacillin/Tazobac S <=4 F Susceptible <16 , Susceptible-Dose Dependent >=16 , Resistant >=32 Gentamicin S <=1 F Susceptible <=2 , Intermediate >2 , Resistant >=8 Tobramycin S <=1 F Susceptible <4 , Intermediate >=4 , Resistant >=8 Trimeth sulfameth S <=20 F Susceptible <=40 , Resistant >40 Ciprofloxacin S <=0.25 F Susceptible <0.5 , Intermediate >=.5 , Resistant >=1 Nitrofurantoin S <=16 F Susceptible <=32 , Intermediate >32 , Resistant >64 Abnormal [facility] Comment on above: Performed By: #### 6 30-4 ####[facility] LABIA [id number] [place] [id number] [facility] CNOVon 08-05-2023 CNOV Office Visit (UCWSTR ) KATYA LAMB ([id number]) 1955 F Date Time Provider Department 08/05/23 1:15 PM CHANCE VOGT [facility] During your visit today, we recorded the following information about you: Temperature Pulse Respiration Blood pressure 98.2 degrees 88/minute 16/minute 132/72 Weight 98.2 kg Chance Vogt APRN.[facility] 08/05/2023 2:03 PM Signed Subjective HPI HPI Katya Lamb is a 68 year old female who presents today for CC of bilat lower abd pain, right flank pain, fever, loose stools. This started few days ago. Has tried otc medication for relief. Symptoms are worsened by nothing. . .Patient presents with: Abdominal Pain: lower abdominal pressure, loose stools x Thursday, fever Thursday only PAST MEDICAL HISTORY Diagnosis Date Adenomatous colon polyp Depression Diverticulosis HTN (hypertension) Hypercholesteremia PAST SURGICAL HISTORY Procedure Laterality Date COLONOSCOPY 09/17/2015 tubular adenoma x2, diverticulosis COLONOSCOPY SCREENING 08/20/2022 Diverticulosis, negative biopsy EGD W/O [facility] SPEC VARICIES INJ 09/10/2022 Negative LIGATE FALLOPIAN TUBE 1989 REMOVAL GALLBLADDER 12/2017 TREAT ECTOPIC 1982 Left Ovary and tube removed ALLERGIES Morphine, Sulfamethoxazole-Trime thoprim, and Trimethoprim MEDICATIONS sertraline (ZOLOFT) 100 mg tabletDisp: Rfl: carvedilol (COREG) 3.125 mg tabletTAKE 1 TABLET BY MOUTH TWICE A DAY MUST ADMINISTER WITH A MEAL/FOODDisp: Rfl: lisinopril (ZESTRIL) 40 mg tabletTake 40 mg by mouth once daily.Disp: Rfl: LORazepam (ATIVAN) 1 mg tabletTAKE 1 TABLET BY MOUTH EVERY DAY AT BEDTIME NEEDED FOR ANXIETYDisp: Rfl: pantoprazole DR (PROTONIX) 40 mg tabletTake 40 mg by mouth daily at bedtime.Disp: Rfl: simvastatin (ZOCOR) 20 mg tabletTake 20 mg by mouth daily at bedtime.Disp: Rfl: denosumab (PROLIA) 60 mg/mLInject 60 mg subcutaneously one time only.Disp: Rfl: FAMILY HISTORY Problem Relation Age of Onset Colon Cancer No Family History Social History Tobacco Use Smoking status: Former Types: Cigarettes Quit date: 1992 Years since quittin.5 Smokeless tobacco: Never Vaping Use Vaping Use: Never used Substance Use Topics Alcohol use: Never Drug use: Never ROS Objective Blood pressure 132/72, pulse 88, temperature 36.8 ?C (98.2 ?F), resp. rate 16, weight 98.2 kg (216 lb 7.9 oz), SpO2 95%. Physical Exam Constitutional: General: She is not in acute distress. Appearance: Normal appearance. She is not toxic-appearing. Cardiovascular: Rate and Rhythm: Normal rate and regular rhythm. Heart sounds: Normal heart sounds. Pulmonary: Effort: Pulmonary effort is normal. Breath sounds: Normal breath sounds. Abdominal: General: Bowel sounds are normal. Palpations: Abdomen is soft. Tenderness: There is abdominal tenderness in the right lower quadrant and left lower quadrant. There is right CVA tenderness and guarding. Skin: General: Skin is warm and dry. ASSESSMENT/PLAN: 1. Abdominal pressure - ICD9: 789.00, ICD10: R10.9 (primary diagnosis) I will refer to ER UA: blood, kets, bili - UA DIP, URINE (POC) - URINE CULTURE 2. Flank pain - ICD9: 789.09, ICD10: R10.9 Refer to ER Chance Vogt APRN.[employer] Allergies As of Date: 08/05/2023 Noted Allergy Reaction MORPHINE 12/06/2014 14 - Other: See Comments 12 - Shortness of Breath SULFAMETHOXAZOLE-TRIME THOPRIM 12/06/2014 14 - Other: See Comments TRIMETHOPRIM 01/04/2018 4 - Hives Date Reviewed: 08/05/2023 Reviewed by: Sonia Rudd MA - Fully Assessed Reason for Visit: Abdominal Pain [1] Cmt: lower abdominal pressure, loose stools x Thursday, fever Thursday only Primary Visit Diagnosis:Abdominal pressure [R10.9] Other Visit Diagnosis:Flank pain [R10.9] Order(s):UA DIP, URINE (POC) [3552931] Order #: [id number]. #:[id number] URINE CULTURE [SQURCUL] Order #: [id number]. #:[id number] Prescriptions as of 08/05/2023 - sertraline (ZOLOFT) 100 mg tablet - carvedilol (COREG) 3.125 mg tablet TAKE 1 TABLET BY MOUTH TWICE A DAY MUST ADMINISTER WITH A MEAL/FOOD - lisinopril (ZESTRIL) 40 mg tablet Take 40 mg by mouth once daily. - LORazepam (ATIVAN) 1 mg tablet TAKE 1 TABLET BY MOUTH EVERY DAY AT BEDTIME NEEDED FOR ANXIETY - pantoprazole DR (PROTONIX) 40 mg tablet Take 40 mg by mouth daily at bedtime. - simvastatin (ZOCOR) 20 mg tablet Take 20 mg by mouth daily at bedtime. - denosumab (PROLIA) 60 mg/mL Inject 60 mg subcutaneously one time only. Facility-Administered Medications as of 08/05/2023 - lidocaine (PF) 10 mg/mL (1 %) 1-2 mg injection (XYLOCAINE) - lactated ringers iv infusion - lidocaine (PF) 10 mg/mL (1 %) 1-2 mg injection (XYLOCAINE) - lactated ringers iv infusion Problem List As Of Date: 08/05/2023 (None) Encounter Status:Closed by (more content not included)... Normal [facility] UA DIP, URINE (POC)on 2023 BILIRUBIN UA (POCT) Small Abnormal Negative [facility] CLARITY UA (POCT) Clear [facility] COLOR UA (POCT) Yellow [facility] GLUCOSE UA (POCT) Negative Negative mg/dL [facility] Hemoglobin Ql (U) Small Abnormal Negative [facility] Interpretation and review of laboratory results Abnormal [facility] KETONE UA (POCT) Trace Negative mg/dL [facility] LEUKOCYTES UA (POCT) Negative Negative [facility] NITRITE UA (POCT) Negative Negative [facility] PH UA (POCT) 5.0 4.5 - 8.0 [facility] Protein Ql (U) Negative Negative mg/dL [facility] SPECIFIC GRAVITY UA (POCT) >=1.030 1.005 - 1.030 [facility] UROBILINOGEN UA (POCT) 0.2 Johana l E.U./dL [facility] Location:[address], [place], [address] [facility] PO[facility] CNOVon 11-18-2022 CNOV Office Visit (GSTNOR ) KATYA LAMB ([id number]) 1955 F Date Time Provider Department 11/18/22 10:55 PATTI CERVANTES During your visit today, we recorded the following information about you: Pulse Blood pressure Weight Height 72/minute 138/84 97.5 kg 1.702 m Patti Caba PA-C 11/18/2022 11:18 AM Signed CHIEF COMPLAINT: Patient presents with: Recheck: Colon/EGD HPI Katya Lamb is a 67 year old female here today for Recheck (Colon/EGD ) PMHx of colon polyps, depression, HTN Patient tells me that she is feeling well today. Rare heartburn. No nausea, vomiting. Appetite is good. Notes her bowel movements are regular for her. Eating probiotic yogurts. No rectal bleeding. MRI 08-27-2022 IMPRESSION: Fatty infiltration of the liver associated with hepatomegaly. Foci of intercalated fat within the pancreas. Bilateral renal cysts. Degenerative changes of the lumbar spine. EGD 09/10/2022: Impression: - LA Grade A reflux esophagitis with no bleeding. Biopsied. - Medium-sized hiatal hernia. Recommendation: - Patient has a contact number available for emergencies. The signs and symptoms of potential delayed complications were discussed with the patient. Return to normal activities tomorrow. Written discharge instructions were provided to the patient. - Resume previous diet. - Continue present medications. - Await pathology results. - Return to GI clinic as previously scheduled. FINAL DIAGNOSIS A. Esophagus, lower, biopsy: -Squamous epithelium with no diagnostic abnormality. Colonoscopy 08/20/2022: Impression: - The examined portion of the ileum was normal. - Diverticulosis in the sigmoid colon and in the descending colon. - Normal mucosa in the entire examined colon. Biopsied. Recommendation: - Resume previous diet. - Continue present medications. - Await pathology results. - Repeat colonoscopy in 5 years for surveillance. - The patient is not currently taking anticoagulant or antiplatelet agents. - Patient has a contact number available for emergencies. The signs and symptoms of potential delayed complications were discussed with the patient. Return to normal activities tomorrow. Written discharge instructions were provided to the patient. FINAL DIAGNOSIS A. Random colon, biopsy: -Colonic mucosa with no diagnostic abnormality. -No evidence of lymphocytic or collagenous colitis. Last OV with me 08/11/2022: Assessment/Plan (K21.9) Gastroesophageal reflux disease, unspecified whether esophagitis present (primary encounter diagnosis) (R19.7) Diarrhea, unspecified type (R14.0) Postprandial bloating (Z86.010) History of colonic polyps 1. Gastroesophageal reflux disease, unspecified whether esophagitis present -- Patient with GERD, on Protonix 40 mg daily. Has associated upper abdominal bloating/discomfort. -- Plan for EGD for further evaluation -- Start OTC probiotic - EGD DIAGNOSTIC; Future 2. Diarrhea, unspecified type -- Patient with intermittent diarrhea for the last year. ?postchole syndrome -- Will check fecal calprotectin, pancreatic elastase -- Start OTC probiotic with at least 15 billion live cultures, 10+ strains -- Drink around 64 oz water daily -- Benefiber daily:2 teaspoons added to 8 ounces of water up to 3 times daily. -- Colonoscopy for further evaluation - CALPROTECTIN,FECAL - PANC ELASTASE, FECAL - COLONOSCOPY DIAGNOSTIC; Future 3. Postprandial bloating -- Patient with GERD, on Protonix 40 mg daily. Has associated upper abdominal bloating/discomfort. -- Will check pancreatic elastase, fecal calprotectin -- Plan for EGD for further evaluation -- Start OTC probiotic - CALPROTECTIN,FECAL - PANC ELASTASE, FECAL - COLONOSCOPY DIAGNOSTIC; Future - EGD DIAGNOSTIC; Future 4. History of colonic polyps - COLONOSCOPY DIAGNOSTIC; Future Follow up in office PRN. Current Outpatient Medications Medication Sig sertraline (ZOLOFT) 100 mg tablet carvedilol (COREG) 3.125 mg tablet TAKE 1 TABLET BY MOUTH TWICE A DAY MUST ADMINISTER WITH A MEAL/FOOD lisinopril (ZESTRIL) 40 mg tablet Take 40 mg by mouth once daily. LORazepam (ATIVAN) 1 mg tablet TAKE 1 TABLET BY MOUTH EVERY DAY AT BEDTIME NEEDED FOR ANXIETY pantoprazole DR (PROTONIX) 40 mg tablet Take 40 mg by mouth daily at bedtime. simvastatin (ZOCOR) 20 mg tablet Take 20 mg by mouth daily at bedtime. denosumab (PROLIA) 60 mg/mL Inject 60 mg subcutaneously one time only. No current facility-administered medications for this visit. Facility-Administered Medications Ordered in Other Visits Medication Dose Route Frequency lidocaine (PF) 10 mg/mL (1 %) 1-2 mg injection (XYLOCAINE) 0.1-0.2 mL INTRADERMAL PRN lactated ringers iv infusion 30 mL/hr INTRAVENOUS CONTINUOUS lidocaine (PF) 10 mg/mL (1 %) 1-2 mg injection (XYLOCAINE) 0.1-0.2 mL INTRADERMA (more content not included)... Normal [facility] SURGICAL PATHOLOGYOrdered By : Guillermo Estevez on 09-11-2022 Case Report Surgical Pathology Report Case: [id number] Authorizing Provider: Pop Garcia MD Collected: 09/10/2022 10:13 AM Ordering Location: Ambulatory Surgery Received: 09/10/2022 10:23 PM Pathologist: Guillermo Estevez MD Specimen: ESOPHAGUS LOWER BIOPSY [facility] Work Phone: FINAL DIAGNOSIS [id number] [id number] [id number] 1fx2Q2EserA94lnDOfNLW0 BPZiMVMpxQDyTGViBZY2LE NrvIMiR4obREWhKV5juprf TIkhRHvzSJAyjVG6NNXdsB LlC2LhDTOcALunBLRxkip9 UxEuUl5ngYGpnYeeZLjjEK HvQWCeUVnfVNCeWyFzMP7k RXLfuCqbW1IwTDIgw8ujcg ipIjxbdHH7TjnqYHZvTUBz vLYpg0XnAJZudGJhTGglqX 8hr4w9zLOtbmSfwXPnyx4c hUfhNKRusw9giYCoeIX0Fs BccGFyfQ== [facility] Work Phone: Gross Description q4kvgGYnWIQlySFzTKKw Ml rgjbHnOEBnyQJyI1Jaxxpq RLabIS0dVE3owYppnBYtxW VvRKLdWtXte4zdx844oQZe i0ioANLFcabusIy2uAkhJ4 7tt3T4TfneC73ggXGqLQT4 JZLkEPZjaRZvPAJuSVI1IN JamQMyH4slZKMkWU0aunhf LWskIMogZHMnbQH7SKLrrD SyT1TwNLBkPAivZHDgxld4 NrLgLh1fzAVjxErkRGnoBu mvwYwcy9TcmPGpYVudZMLf MQNyOKykMNUwA1DDQINzBr rtFRF9JlivOQXXDXT6LkQ9 Yae6UKHPDLMzNRvoKmC7EK D0BiJtGSGXUSKwYkF8BNHq MDIgXFxuaCBcXHQgMSBcXG DtBPnnimO3b2nhNZTopIVg CRV4SYcodWMbCLOdVRWbAZ ckXbLFXjEqXnFrSEU3Ypem ZOPoGCd7IGaaV3VAFVByBK H5SVJrCOK0CyF9HTj1WYKS Bc4qUEC6UAW5HAHhRxHsTZ L5LFSwXRc9NZEhYLaoejFq UTnmUackJOjfW79iaKUdOP xwbGFpblxmczIyIEEuIEVT Z6OOMOyYOwBCQ5tXCaUIXJ 7MZ9nxpLZxODYtfjHxd9Yw MFxlcGljWHNiMzBccGxhaW 5cZnMyMCBSZWNlaXZlZCBp vfXci3UgFAmxrkQjndNjey RmjPomL9Sbr4FmuEAaTZUp n0Y1JVMbe8V0VRPdHHHzeM JwdvtnFI3vIBxlTG3tZQes BW1mZOYeGkUFr3HljKj6YO F5Dj2mqASwPJDvcyUrgmHg T0Bqp4X7uLKyZObwOLWkeF QcTUwcTWFuOz0VLFM8Q2Rf bOPlDUVmQLEoHOr6RnUrVW 2baYPzMBSecpKOqg4elyCu ePMimM5haReqfzUfTSYsk1 WgCGQgNZFrK8jfozKlXI2x GGGmuT9yTwpfZFGmMFCCjW GqnKRhMUFrRbhdV1htwnZt UI2kEJCETEJ0CUI6GQuwMG Pml7OaQDotzNrlTVEfQcI0 XDNtqDOhNSI0XM5rrPjcBD WlO2TmG4XugoU1TWRsyw1= [facility] Work Phone: Performing Lab t5petYLcHWBrmFWoBcRe MD WsGGXjr7vaWMXiuLHyEbPy MzNcZnRuYmpcdWMxXGRlZm Ygk3uca717cZNut2puBSUz DcD0mQGnIGSozDOsE669ZS NzXWwve1foy7FeBVBmhZBg j4P6TJTFjecydNp0dQngZ0 4bk9V4ZyusA8flHMHhPRSg V3SeLS0wROVvWwl3TYH8RZ T3SLYhOAFnO1VoNX0tGMMk gBSgFRm6r2njpHuqHRDgTS F7w5ycAKisfjYmQG3bbp3p jWk8q6mhbdYkSBPbEJVnsC AAVFXzJ8AuvQrtNf4noGk8 eBcnLzgoQOP3Tbi4BU4hsy 97jbj6sFdlTXLdcgskJfD5 DCcnDRQzvgmhIPy9CFonQC YoaWH6BQEdmMJjM2BrDUsc CQ5orwn7PLL5SBivQPXuSd F2UPXsuZHlUGJglOtfLYpj w569XVJ7NvNyGE9uN7Nyq3 E6wI0hzPSkGQBqfWTnYnXt GTRyhu3ffSSuZBriw5ImJN Q4abF4hUXqyZPgCGFdSX96 Vvdbc3CqCxuch7AoT50abG F2YIkza1cfQX6aZrS7hyGd MJttf3olyW8tJiE2CGroWH 6dIY7eTWElwW5aibhsFYOg YnJkcmhlYWRccGdicmRyZm 5dtEeyTYP5JWtxU1kroV7s RdI9TNklH2mwtH2sXMb6SP lugMG5HKGlmO0pWH7lbtcg k5pnBRtsNNpxXHPdxbN5hv NkOVStlJXuM9GgfQ3zKIUq ZJ9ffmfgl8gwOVY3RBbfLR KmXHH8NeBiCZKnk8Jtjet0 CaGyj5DytLEfROepJ54gy9 40QUTaabKfU3yivIPqzcde eBFtrpphWDztemC5XVPzTX BsYWluXGYxXGZzMjJcbGFu ZzEwMzNcaGljaFxmMVxkYm UtTDAgDEzyD6tvWzMbGmGc RyPUhNTqnr3zeLsjYPkvgD UjqXGktPU5tA2fOYOjdqCg iw2sYEEmuXFClOB7EXdptl IxM2qiufoqVNJ5DOOpUYW5 M7uxQKQYfaHyIZWeTASwmO KvIBUBPCT1ZGY5YDPcOCPM CXRzWDB3UOV7NOObVIUcbS FyXHBhclxwYXJkXHBsYWlu JPNvVBArKhRyiPkcbF4kYi NiBjQjMrfhDU0rGXKzX4ua bEGhOZHxYXSuS5wgOiZmlG 9jaFxmMVxjZjJcZnMyMlxs hXNwuPJXMUUcflH5v3I9CE xwbGFpblxmMVxmczIyXGxh yfziKSTwROzoP8rcTfPpSR DegRlbPVyoi5JsVVKnVFMq EqUoKZbiFIM1n6A5XYnuhG OudgWOQbZLMF6mbPLtceae NY1VRrjtZFU9 [facility] Work Phone: [facility] Work Phone: ANES POSTPROC EVALon 023 ANES POSTPROC EVAL HNO ID: [id number] Author: Holly Evangelista APRN.BODY LINER Service: Anesthesiology Author Type: Nurse Wad Compressor Operator Adjuster Type: Anesthesia Postprocedure Evaluation Filed: 09/10/2022 10:26 AM Note Text: POST ANESTHESIA EVALUATION NOTE : 1955 Procedure Summary Date: 09/10/22 Room / Location: Ambulatory Surgery Anesthesia Start: 1007 Anesthesia Stop: 1022 Procedure: EGD DIAGNOSTIC Diagnosis: Gastroesophageal reflux disease, unspecified whether esophagitis present Postprandial bloating (Established gastro-esophageal reflux disease) Scheduled Providers: Pop Garcia MD Responsible Provider: Holly Evangelista APRN.CRNA Anesthesia Type: MAC ASA Status: 2 Anesthesia Type: MAC Last Vitals Vitals Value Taken Time BP 102/58 09/10/22 1022 Temp 36.4 ?C (97.6 ?F) 09/10/22 1022 Pulse 61 09/10/22 1022 Resp 16 09/10/22 1022 SpO2 93 % 09/10/22 1022 Post Anesthesia Patient Status Patient Evaluation: PACU. PACU/ICU Patient Condition: stable. Anticipated Disposition: phase 2 then home. Neurological Status: aware and responsive. Pulmonary Status: breathing comfortably on room air Airway Control: returned to baseline unsupported. Cardiovascular Status: stable. Pain Management: clinically adequate - multimodal analgesia pain management approach Postoperative Hydration: acceptable. Intraoperative Events: no significant anesthesia events Post Operative Nausea/Vomiting Status: no significant post operative nausea or vomiting Recommendation: continue current plan of care. Anesthesia Observations No Documentation SIGNATURE: Holly Evangelista APRN.BODY LINER PATIENT NAME: Katya Lamb DATE: September 10, 2022 TIME: 10:26 AM CSN: [id number] Normal [facility] ANES PRE-OPon 09-10-2022 ANES PRE-OP HNO ID: [id number] Author: Holly Evangelista APRN.BODY LINER Service: Anesthesiology Author Type: Nurse Wad Compressor Operator Adjuster Type: Anesthesia Preprocedure Evaluation Filed: 09/10/2022 10:07 AM Note Text: ANESTHESIOLOGY DAY OF SURGERY NOTE : 1955 Procedure Information Date/Time: 09/10/22 1015 Scheduled providers: Pop Garcia MD Procedure: EGD DIAGNOSTIC Location: Ambulatory Surgery Estimated body mass index is 32.26 kg/m? as calculated from the following: Height as of this encounter: 170.2 cm (5' 7"). Weight as of this encounter: 93.4 kg (206 lb). Most recent hematocrit and potassium results: No results found for this basename: HCT,HEMATOCRIT,K,POTAS SIUM Relevant Problems No relevant active problems I - PHYSICAL EVALUATION AIRWAY Patient intubated: No. Tracheostomy tube not present Mallampati: II. TM distance: >3 FB. Neck ROM: full ROM without neurological symptoms. Mouth opening: adequate. Short neck: yes. Thick neck: yes DENTAL Dental findings: teeth intact. Dentures, lower: complete. Additional exam findings: no II - ANESTHESIA PLAN ASA Score: 2 Anesthetic Plan: MAC The patient is not a current smoker. NPO Status: adequate Beta Warren Monitoring Plan Monitoring plan: standard ASA. Post Procedure Analgesic Plan Postoperative analgesic plan: parenteral or oral opioids and multimodal analgesia. Informed Consent Anesthetic risks, benefits, alternatives, personnel and consent discussed: yes. Patient / Responsible Republican agrees to proceed: yes Patient / Surrogate agrees to blood products: blood products not planned Significant changes in the patient condition since the History and Physical, not otherwise documented in primary service progress note: no. Potential Anesthesia issues that may suggest increased risk of complications or contraindication to planned procedure: none. Vitals Value Taken Time BP 144/63 09/10/22 0949 Pulse 70 09/10/22 0949 Resp 16 09/10/22 0949 Temp 36.4 ?C (97.6 ?F) 09/10/22 0949 SpO2 97 % 09/10/22 0949 Outpatient Medications as of 09/10/2022 Medication Sig - carvedilol (COREG) 3.125 mg tablet TAKE 1 TABLET BY MOUTH TWICE A DAY MUST ADMINISTER WITH A MEAL/FOOD - lisinopril (ZESTRIL) 40 mg tablet Take 40 mg by mouth once daily. - LORazepam (ATIVAN) 1 mg tablet TAKE 1 TABLET BY MOUTH EVERY DAY AT BEDTIME NEEDED FOR ANXIETY - ondansetron orally disintegrating (ZOFRAN ODT) 4 mg disintegrating tablet TAKE 1 TABLET ORALLY EVERY 8 HOURS NEEDED NEEDED FOR NAUSEA - pantoprazole DR (PROTONIX) 40 mg tablet Take 40 mg by mouth daily at bedtime. - simvastatin (ZOCOR) 20 mg tablet Take 20 mg by mouth daily at bedtime. - sertraline 150 mg capsule Take 150 mg by mouth once daily. - denosumab (PROLIA) 60 mg/mL Inject 60 mg subcutaneously one time only. Facility-Administered Medications as of 09/10/2022 Medication Dose Route Frequency - lidocaine (PF) 10 mg/mL (1 %) 1-2 mg injection (XYLOCAINE) 0.1-0.2 mL INTRADERMAL PRN - lactated ringers iv infusion 30 mL/hr INTRAVENOUS CONTINUOUS - lidocaine (PF) 10 mg/mL (1 %) 1-2 mg injection (XYLOCAINE) 0.1-0.2 mL INTRADERMAL PRN - lactated ringers iv infusion 30 mL/hr INTRAVENOUS CONTINUOUS I have interviewed and examined the patient. I have reviewed the medical record and/or the pre-anesthesia evaluation, pertinent labs, and test results. This contains updated information obtained within 48 hours of Surgery/Procedure. SIGNATURE: Holly Evangelista APRN.BODY LINER PATIENT NAME: Katya Lamb DATE: September 10, 2022 TIME: 10:07 AM CSN: [id number] Normal [facility] ANES PREOPon 09-10-2022 ANES PREOP HNO ID: [id number] Author: Pop Garcia MD Service: Gastroenterology Author Type: Physician Type: Anesthesia PreOp Filed: 09/10/2022 10:06 AM Note Text: HISTORY AND PHYSICAL Katya Lamb, 67 year old female Current history and physical on file: Yes Is a new History and Physical required for today's visit? No Indication for procedure: GERD PROCEDURE(S) SCHEDULED FOR: EGD (Esophagogastroduodeno scopy) with or without biopsies, removal of polyps or lesions, dilation ( any means), treatment of bleeding ( any means), Barrx treatment of Riley's Esophagus, image tube placement or cryo therapy treatment based on clinical findings. BASELINE BEHAVIOR: Calm BASELINE ORIENTATION: A AND O x3 All medications and allergies reviewed: Yes Skin Assessment: Warm dry mucus membranes pink Airway/Respiratory Assessment: Airway: visualization of the uvula- Yes Mouth: opening greater than 2 fingerbreadths- Yes Neck: full range of motion- Yes Breath sounds clear/equal- Yes Cardiac Assessment: Regular rate and rhythm without murmur Abdominal Assessment: Abdomen soft, non-tender, no masses or organomegaly. Sedation Plan: Moderate Additional Comments: None Pop Garcia MD Normal [facility] EGD Study observation Arina bryson 09-10-2022 [facility] Gastrointestinal Endoscopy Patient Name: Katya Lamb Procedure Date: 09/10/2022 10:08 AM Date of : 1955 Admit Type: Outpatient Age: 67 Room: [place] [address] Gender: Female Note Status: Finalized Attending MD: Pop Garcia MD Procedure: Upper GI endoscopy Indications: Gastro-esophageal reflux disease Providers: Pop Garcia MD Patient Profile: Refer to note in patient chart for documentation of history and physical. Referring Physician: Patti Caba (Referring MD) Medicines: Monitored Anesthesia Care Complications: No immediate complications. Requesting Provider: Procedure: Pre-Anesthesia Assessment: - Prior to the procedure, a History and Physical was performed, and patient medications and allergies were reviewed. The patient's tolerance of previous anesthesia was also reviewed. The risks and benefits of the procedure and the sedation options and risks were discussed with the patient. All questions were answered, and informed consent was obtained. Prior Anticoagulants: The patient has taken no anticoagulant or antiplatelet agents. ASA Grade Assessment: II - A patient with mild systemic disease. After reviewing the risks and benefits, the patient was deemed in satisfactory condition to undergo the procedure. After obtaining informed consent, the endoscope was passed under direct vision. Throughout the procedure, the patient's blood pressure, pulse, and oxygen saturations were monitored continuously. The Endoscope was introduced through the mouth, and advanced to the second part of duodenum. I was present and participated during the entire procedure, including non-gurrola portions, and during the administration and monitoring of Moderate Sedation. The upper GI endoscopy was accomplished without difficulty. The patient tolerated the procedure well. Moderate Sedation: MAC anesthesia was administered by the anesthesia team. Findings: LA Grade A (one or more mucosal breaks less than 5 mm, not extending between tops of 2 mucosal folds) esophagitis with no bleeding was found 37 cm from the incisors. Biopsies were taken with a cold forceps for histology. Verification of patient identification for the specimen was done. Estimated blood loss was minimal. A medium-sized hiatal hernia was present. Impression: - LA Grade A reflux esophagitis with no bleeding. Biopsied. - Medium-sized hiatal hernia. Recommendation: - Patient has a contact number available for emergencies. The signs and symptoms of potential delayed complications were discussed with the patient. Return to normal activities tomorrow. Written discharge instructions were provided to the patient. - Resume previous diet. - Continue present medications. - Await pathology results. - Return to GI clinic as previously scheduled. Procedure Code(s): --- Professional --- 36785, Esophagogastroduodenos copy, flexible, transoral; with biopsy, single or multiple CPT copyright 2020 [employer]. All rights reserved. The codes documented in this report are preliminary and upon non destructive evaluation specialist review may be revised to meet current compliance requirements. Attending Participation: I personally performed the entire procedure. Scope In: 10:11:48 AM Scope Out: 10:14:41 AM MD Pop Coleman MD 09/10/2022 10:18:36 AM This report has been signed electronically by Pop Garcia MD Number of Addenda: 0 Note Initiated On: 09/10/2022 10:08 AM Estimated Blood Loss: Estimated blood loss was minimal. PROVATION [facility] Radiology Study observation (narrative) [facility] SURGICAL PATHOLOGYon 023 CASE REPORT Normal [facility] Comment on above: Order Comment: Speci men Type: TISSUE SPECIMENOrdering Facility: [facility] Address: [address] [place] [address] Result Comment: Surg [facility] Pathology Report Case: [id number] Authorizing Provider: Pop Garcia MD Collected: 09/10/2022 10:13 AM Ordering Location: Ambulatory Surgery Received: 09/10/2022 10:23 PM Pathologist: Guillermo Estevez MD Specimen: ESOPHAGUS LOWER BIOPSY Performed By: #### S ####[facility] LABCL[facility] [id number] [address] [place] FINAL DIAGNOSIS Normal [facility] Comment on above: Order Comment: Speci men Type: TISSUE SPECIMENOrdering Facility: [facility] Address: [address] [place] [address] Result Comment: wing [place], biopsy: -Squamous epithelium with no diagnostic abnormality. Performed By: #### S ####[facility] [id number] [address] [place] FINAL PERFORMING LAB Normal [facility] Comment on above: Order Comment: Speci men Type: TISSUE SPECIMENOrdering Facility: [facility] Address: [address] [place] [address] Result Comment: Diag nostic interpretation performed at [facility], [facility] [place] [address] CLIA# [id number] Vacuum System Tester: Bi Hammond M.D. Performed By: #### S ####[facility] [id number] [address] [place] GROSS DESCRIPTION Normal [facility] Comment on above: Order Comment: Speci men Type: TISSUE SPECIMENOrdering Facility: [facility] Address: [address] [place] [address] Result Comment: Jeff SHELTON LOWER BIOPSY Received in formalin is one piece of rabago, soft tissue measuring 0.2 x 0.2 x 0.1 cm. Totally submitted in one cassette. NMP September 11, 2022 7:34 AM Gross examination performed at [facility], [address] [place] [address] Performed By: #### S ####[facility]CLIA [id number] [place] [address] [place] Upper GI endoscopyon 023 Upper GI endoscopy [facility] Gastrointestinal Endoscopy Patient Name: Katya Lamb Procedure Date: 09/10/2022 10:08 AM Date of : 1955 Admit Type: Outpatient Age: 67 Room: [facility] Gender: Female Note Status: Finalized Attending MD: Pop Garcia MD Procedure: Upper GI endoscopy Indications: Gastro-esophageal reflux disease Providers: Pop Garcia MD Patient Profile: Refer to note in patient chart for documentation of history and physical. Referring Physician: Patti Caba (Referring MD) Medicines: Monitored Anesthesia Care Complications: No immediate complications. Requesting Provider: Procedure: Pre-Anesthesia Assessment: - Prior to the procedure, a History and Physical was performed, and patient medications and allergies were reviewed. The patient's tolerance of previous anesthesia was also reviewed. The risks and benefits of the procedure and the sedation options and risks were discussed with the patient. All questions were answered, and informed consent was obtained. Prior Anticoagulants: The patient has taken no anticoagulant or antiplatelet agents. ASA Grade Assessment: II - A patient with mild systemic disease. After reviewing the risks and benefits, the patient was deemed in satisfactory condition to undergo the procedure. After obtaining informed consent, the endoscope was passed under direct vision. Throughout the procedure, the patient's blood pressure, pulse, and oxygen saturations were monitored continuously. The Endoscope was introduced through the mouth, and advanced to the second part of duodenum. I was present and participated during the entire procedure, including non-gurrola portions, and during the administration and monitoring of Moderate Sedation. The upper GI endoscopy was accomplished without difficulty. The patient tolerated the procedure well. Moderate Sedation: MAC anesthesia was administered by the anesthesia team. Findings: LA Grade A (one or more mucosal breaks less than 5 mm, not extending between tops of 2 mucosal folds) esophagitis with no bleeding was found 37 cm from the incisors. Biopsies were taken with a cold forceps for histology. Verification of patient identification for the specimen was done. Estimated blood loss was minimal. A medium-sized hiatal hernia was present. Impression: - LA Grade A reflux esophagitis with no bleeding. Biopsied. - Medium-sized hiatal hernia. Recommendation: - Patient has a contact number available for emergencies. The signs and symptoms of potential delayed complications were discussed with the patient. Return to normal activities tomorrow. Written discharge instructions were provided to the patient. - Resume previous diet. - Continue present medications. - Await pathology results. - Return to GI clinic as previously scheduled. Procedure Code(s): --- Professional --- 15167, Esophagogastroduodenos copy, flexible, transoral; with biopsy, single or multiple CPT copyright 2020 [employer]. All rights reserved. The codes documented in this report are preliminary and upon non destructive evaluation specialist review may be revised to meet current compliance requirements. Attending Participation: I personally performed the entire procedure. Scope In: 10:11:48 AM Scope Out: 10:14:41 AM MD Pop Coleman MD 09/10/2022 10:18:36 AM This report has been signed electronically by Pop Garcia MD Number of Addenda: 0 Note Initiated On: 09/10/2022 10:08 AM Estimated Blood Loss: Estimated blood loss was minimal. Normal [facility] SURGICAL PATHOLOGYOrdered By : Peng Morris on 08-22-2022 Case Report Surgical Pathology Report Case: [id number] Authorizing Provider: Maddy Prieto, Collected: 08/20/2022 09:50 AM Ordering Location: Ambulatory Surgery Received: 08/21/2022 04:47 PM Pathologist: Peng Morris MD, PhD Specimen: COLON BIOPSY, random [facility] Work Phone: FINAL DIAGNOSIS l0ohcJQaNOQfdHVaTPNm Ml fvyqAwYXXtzFRwV2Exyksl ALdaKI7rTV5woXxkiHPvnC LzHPLeQbZoz5dio707tPDh w2daZQHHntgthTh0iIinS6 5bm2D1PtmpW79bhCDhIYQ1 RHTbUKNpzAQoBJCjHKP5YU UrfPPbY1nnGNIiIL7telqx UTnxRLllNOHguKF8JTMxoI AfH7BjPKEmZXmkLJBkcho0 EjLqGj7jeGOqpUpoRRugNC CdDTFqSMmtDSFaAqHrAA2k NXQledHirKEcx3zffshdEp hhnDL1JvxbRVXhIWAdhK5n yVOvzRBbe2IjKCirpUtpan 9yHAlnT82jj4FcMdRsNz4z vn0cuMi0sF6vyGBiVR0Voa IjydytOK4qDAKaIzNowN8d zG6ziWBaXpQbswDux6aoLH grqi41zvLni1fcqBqbSbxq YXJ9 [facility] Work Phone: Gross Description q7pqfCJmQJPaxMEjDKFr Ml ogxyOpYELjdNFkF5Djnfqh TDdxEZ8gMB8otFhqfVQibB VpCFEcOiVni1eis796nSQx g7xwBEKPmnywtGv8sUqcX5 7wa7F4AkmvX67gdGIdFZE2 NLCmEOMayBDwWTUeYFT1LR HlrKIxS3tpMKNwBO2qxpoz YFtvGGicOKOdiAL1GMLydU ZyJ0CjEHSaKWhpARZiyqe4 OqRrRb4jwEWlpUbfVHgzUb yucXndp4UvdEIpGHlzLBXs YPGqFZyaXNQqF6GBJEFkVe U5IDr4TZUgWKNMMGD3NjQr CHBtCRMENPThSTtzPsM7VO V2EnThIPORFPSeJeL4DWMk MDIgXFxuaCBcXHQgMSBcXG EkQJelpwI5h6ekOPYooSIm MFX9LBnufQPjNQCjAEOtOE abRyYZHmGtWoBxZqU9DLTr OHPyZCr9CYchB7VITJOoPU X6RMQyKwJ4HoP9XBa6YFHZ Ec8tRDJ4YBhdTYR7SGLjJE T4EuDkLVx5GTBeVKgiarFo JNayScioKCusA12isGUbYG xwbGFpblxmczIyIEEuIENP AY1WGYNTL5RLIKagWVFuqK PsWKgtQyLuBMDbgZVOk6Fd MFxwbGFpblxmczIwIFJlY2 XhueVfSEdhHBGqby9ctHtr OHVwOZNqlOc0yFDjSQXrfP OeOABfl9XxpHExGLHsv0E5 LFVjj2Q1WJLmH6lgWYdppO hwWeZ0lsYhWvaezEKjDrPc oVFnZoLtM69mDTNofZBsfG nwa7BjiAy5sIPxCLnhGL6h ZLApPCDoFQD0VE6tEQHhui xwYXJkXHBhciBTUyBKdWx5 GAYgFIEsGKWpCMa1HZoxDS 1ccGFyXHBhclxzYTMwXGVw kZHEk8LbCDADtm2pddPyxU PesM9gaNmmsaHgYUVob8Qc TBToFQDaV7vnhcZgXV8uMP OmrE4tEoftJZHcEAXHzXLd hVVtDRFyEnthK3xklcShIP 1bKIOWAFL3ZOA5MQndXLRm A1AyV6ZnbiH1j9vdlSzgz1 QeeIKlVC5gvPAciZ== [facility] Work Phone: Performing Lab t7cbdVQcWYNsgOYlBuDu NH RrTNHml2xpENNfbCDrWxHl MzNcZnRuYmpcdWMxXGRlZm Wmv6wqe060sTUtb0wdXNCj FkL1kZUvSWQxtVClV065BS TqDBftk6oic4JyWXCnvIMw e3J8BLJHcdiieKr1eCibW7 2ja6E9OnrwZ7qwUWMnCKYp S6KmYD0hDLTqXms8VCZ7FJ Q3DBTaPPDvZ5CjOI7yIGBo zWIwPPc5f6rjlMhhISYwOL G4y0jmJIknruRtAC6kjv7k uJg2s0ufttCuTSSyHEVqeT HFWCMqC7DjtZyaQn3ozVe4 lCcpHhfcMRW5Gbb8ZU0uvh 51cfo3dLdcCOLepnwnOrW7 IErbVKVkpdzhWAh5NCyoSK UchMW5GZKofTBiU7PoELuk ZJ5mtlv1CQR4WIgbWESgJs F9TJYuvVOmVNAhlLmfZRgz y375FHK2SfKcAO7xF6Sgp1 O0rJ1bkSXhAVThoLCiYbAz AQFcbh2smDTgFEhhs4TmDE D2okG2uOSdgLKjEMQjHK94 Okdrn4ZbQyjvm5LeP72eeJ Z7GHghg5lfPA7rCrA3lrCg RJtdu2fbcG5nQrL4YLfzJY 2pVN8bGPDgbK4otercCPGc YnJkcmhlYWRccGdicmRyZm 2aeErrYWS6WBhpG2yorE7n DbA2XGhsQ3bzrG6aAIv0FE dksML3MBLjtO5uVU0qoage d2ioQJbhPBmaRLSjgmP0fs GgVHRwxYZdF7TnnE4eZAEx OB5ijhzxz1edNLN6TZxzFW IpVAL6PmOqDWRyw3Vwkiy5 DiPcf4EqdCHxWZceE75jq8 23UNFuwjZtM7acjHDiluvl uMJomsukIMeyynQ1HKDwEJ BsYWluXGYxXGZzMjJcbGFu ZzEwMzNcaGljaFxmMVxkYm RmPPTxIMelR2tpQfDlIzGv ToWElQQpyr5gnGtkWTmhaY BbiRRhyJF8yZ3uAGPgsvTx rl0qTKRjvIGOsJH5OHbepc OfA4anllrxDRB1FQQmEHF4 I7mhQQBPucVaXGAkLTLumH GhZZFZOSB1LEO6YTTiERJW XWSoAUZ2KMB1BLHqBHOsjE FyXHBhclxwYXJkXHBsYWlu GOZrVAWrAaVolNqmiI8yQv MrZxNfEdlsBI5wTCTnV3ze mUBgKNCkRYMcE9xhHrUdbL 9jaFxmMVxjZjJcZnMyMlxs vHPibZRFSRRyryF5p1B5NG xwbGFpblxmMVxmczIyXGxh bqcdDTLyOZohX2gtDvQzEM XvxQwdPWzbu0GqMFKiANFc VjIlZVtiPXR5b1Z1HNuenB DnnlBJYvPMEC8ueGPcihlm EB3MVkbrRBX0 [facility] Work Phone: [facility] Work Phone: Flexible sigmoidoscopy study on 08-21-2022 [facility] Gastrointestinal Endoscopy Patient Name: Katya Lamb Procedure Date: 08/20/2022 9:35 AM Date of : 1955 Admit Type: Outpatient Age: 67 Room: [place] [address] Gender: Female Note Status: Finalized Attending MD: Maddy Prieto MD Procedure: Colonoscopy Indications: Clinically significant diarrhea of unexplained origin Providers: Maddy Prieto MD Patient Profile: Last Colonoscopy: 10 years ago. Referring Physician: Patti Caba (Referring MD) Medicines: Propofol per Anesthesia Complications: No immediate complications. Requesting Provider: Procedure: Pre-Anesthesia Assessment: - Prior to the procedure, a History and Physical was performed, and patient medications and allergies were reviewed. The patient's tolerance of previous anesthesia was also reviewed. The risks and benefits of the procedure and the sedation options and risks were discussed with the patient. All questions were answered, and informed consent was obtained. Prior Anticoagulants: The patient has taken no anticoagulant or antiplatelet agents. ASA Grade Assessment: II - A patient with mild systemic disease. After reviewing the risks and benefits, the patient was deemed in satisfactory condition to undergo the procedure. After I obtained informed consent, the scope was passed under direct vision. Throughout the procedure, the patient's blood pressure, pulse, and oxygen saturations were monitored continuously. The Colonoscope was introduced through the anus and advanced to the cecum, identified by appendiceal orifice and ileocecal valve. I was present and participated during the entire procedure, including non-gurrola portions, and during the administration and monitoring of Moderate Sedation. The colonoscopy was performed without difficulty. The patient tolerated the procedure well. The quality of the bowel preparation was good. The ileocecal valve, appendiceal orifice, and rectum were photographed. Moderate Sedation: MAC anesthesia was administered by the anesthesia team. Findings: The terminal ileum appeared normal. A few medium-mouthed diverticula were found in the sigmoid colon and descending colon. Normal mucosa was found in the entire colon. Biopsies for histology were taken with a cold forceps from the random colon biopsies for evaluation of microscopic colitis. Impression: - The examined portion of the ileum was normal. - Diverticulosis in the sigmoid colon and in the descending colon. - Normal mucosa in the entire examined colon. Biopsied. Recommendation: - Resume previous diet. - Continue present medications. - Await pathology results. - Repeat colonoscopy in 5 years for surveillance. - The patient is not currently taking anticoagulant or antiplatelet agents. - Patient has a contact number available for emergencies. The signs and symptoms of potential delayed complications were discussed with the patient. Return to normal activities tomorrow. Written discharge instructions were provided to the patient. Procedure Code(s): --- Professional --- 23119, Colonoscopy, flexible; with biopsy, single or multiple CPT copyright 2020 [employer]. All rights reserved. The codes documented in this report are preliminary and upon non destructive evaluation specialist review may be revised to meet current compliance requirements. Attending Participation: I personally performed the entire procedure. Scope In: 9:45:16 AM Scope Out: 9:52:44 AM MD Maddy Mckinley MD 08/20/2022 9:58:10 AM This report has been signed electronica (more content not included)... PROVATION [facility] ANES POSTPROC EVALon 023 ANES POSTPROC EVAL HNO ID: [id number] Author: Coco Bajwa APRN.BODY LINER Service: ? Author Type: Nurse Wad Compressor Operator Adjuster Type: Anesthesia Postprocedure Evaluation Filed: 08/20/2022 10:02 AM Note Text: POST ANESTHESIA EVALUATION NOTE : 1955 Procedure Summary Date: 08/20/22 Room / Location: Ambulatory Surgery Anesthesia Start: 937 Anesthesia Stop: 1002 Procedure: COLONOSCOPY DIAGNOSTIC Diagnosis: Diarrhea, unspecified type Postprandial bloating History of colonic polyps (Clinically significant diarrhea of unexplained origin) Scheduled Providers: Maddy Prieto MD Responsible Provider: Coco Bajwa APRN.CRNA Anesthesia Type: MAC ASA Status: 2 Anesthesia Type: MAC Last Vitals Vitals Value Taken Time BP 112/63 08/20/22 1000 Temp 36.2 ?C (97.2 ?F) 08/20/22 1000 Pulse 57 08/20/22 1000 Resp 16 08/20/22 1000 SpO2 97 % 08/20/22 1000 Post Anesthesia Patient Status Patient Evaluation: PACU. PACU/ICU Patient Condition: stable. Anticipated Disposition: phase 2 then home. Neurological Status: aware and responsive. Pulmonary Status: breathing comfortably on room air Airway Control: returned to baseline unsupported. Cardiovascular Status: stable. Pain Management: clinically adequate - multimodal analgesia pain management approach Postoperative Hydration: acceptable. Intraoperative Events: no significant anesthesia events Post Operative Nausea/Vomiting Status: no significant post operative nausea or vomiting Recommendation: continue current plan of care. Anesthesia Observations No Documentation SIGNATURE: Coco Bajwa APRN.BODY LINER PATIENT NAME: Katya Lamb DATE: August 20, 2022 TIME: 10:02 AM CSN: [id number] Normal [facility] ANES PRE-OPon 08-20-2022 ANES PRE-OP HNO ID: [id number] Author: Coco Bajwa APRN.BODY LINER Service: ? Author Type: Nurse Wad Compressor Operator Adjuster Type: Anesthesia Preprocedure Evaluation Filed: 08/20/2022 9:38 AM Note Text: ANESTHESIOLOGY DAY OF SURGERY NOTE : 1955 Procedure Information Date/Time: 08/20/22929 Scheduled providers: Maddy Prieto MD Procedure: COLONOSCOPY DIAGNOSTIC Location: Ambulatory Surgery Estimated body mass index is 32.26 kg/m? as calculated from the following: Height as of this encounter: 170.2 cm (5' 7"). Weight as of this encounter: 93.4 kg (206 lb). Most recent hematocrit and potassium results: No results found for this basename: HCT,HEMATOCRIT,K,POTAS SIUM Relevant Problems No relevant active problems I - PHYSICAL EVALUATION AIRWAY Patient intubated: No. Tracheostomy tube not present Mallampati: II. TM distance: >3 FB. Neck ROM: full ROM without neurological symptoms. Mouth opening: adequate. Short neck: no. Thick neck: no Sibley present: no DENTAL Dental findings: teeth intact. Additional exam findings: no II - ANESTHESIA PLAN ASA Score: 2 Anesthetic Plan: MAC The patient is not a current smoker. NPO Status: adequate Beta Warren Monitoring Plan Monitoring plan: standard ASA. Post Procedure Analgesic Plan Postoperative analgesic plan: parenteral or oral opioids and multimodal analgesia. Informed Consent Anesthetic risks, benefits, alternatives, personnel and consent discussed: yes. Patient / Responsible Republican agrees to proceed: yes Patient / Surrogate agrees to blood products: blood products not planned Significant changes in the patient condition since the History and Physical, not otherwise documented in primary service progress note: no. Vitals Value Taken Time BP 135/67 08/20/22922 Pulse 61 08/20/22922 Resp 18 08/20/22922 Temp 36.5 ?C (97.7 ?F) 08/20/22922 SpO2 98 % 08/20/22922 Outpatient Medications as of 08/20/2022 Medication Sig - carvedilol (COREG) 3.125 mg tablet TAKE 1 TABLET BY MOUTH TWICE A DAY MUST ADMINISTER WITH A MEAL/FOOD - lisinopril (ZESTRIL) 40 mg tablet Take 40 mg by mouth once daily. - simvastatin (ZOCOR) 20 mg tablet Take 20 mg by mouth daily at bedtime. - sertraline 150 mg capsule Take 150 mg by mouth once daily. - LORazepam (ATIVAN) 1 mg tablet TAKE 1 TABLET BY MOUTH EVERY DAY AT BEDTIME NEEDED FOR ANXIETY - ondansetron orally disintegrating (ZOFRAN ODT) 4 mg disintegrating tablet TAKE 1 TABLET ORALLY EVERY 8 HOURS NEEDED NEEDED FOR NAUSEA - pantoprazole DR (PROTONIX) 40 mg tablet Take 40 mg by mouth daily at bedtime. - denosumab (PROLIA) 60 mg/mL Inject 60 mg subcutaneously one time only. Facility-Administered Medications as of 08/20/2022 Medication Dose Route Frequency - lidocaine (PF) 10 mg/mL (1 %) 1-2 mg injection (XYLOCAINE) 0.1-0.2 mL INTRADERMAL PRN - lactated ringers iv infusion 30 mL/hr INTRAVENOUS CONTINUOUS I have interviewed and examined the patient. I have reviewed the medical record and/or the pre-anesthesia evaluation, pertinent labs, and test results. This contains updated information obtained within 48 hours of Surgery/Procedure. SIGNATURE: Coco Bajwa APRN.CRNA PATIENT NAME: Katya Lamb DATE: August 20, 2022 TIME: 9:38 AM CSN: [id number] Normal [facility] Colonoscopyon 08-20-2022 Colonoscopy [facility] Patient Name: Katya Lamb Procedure Date: 08/20/2022 9:35 AM Date of : 1955 Admit Type: Outpatient Age: 67 Room: [place] [address] Gender: Female Note Status: Finalized Attending MD: Maddy Prieto MD Procedure: Colonoscopy Indications: Clinically significant diarrhea of unexplained origin Providers: Maddy Prieto MD Patient Profile: Last Colonoscopy: 10 years ago. Referring Physician: Patti Caba (Referring MD) Medicines: Propofol per Anesthesia Complications: No immediate complications. Requesting Provider: Procedure: Pre-Anesthesia Assessment: - Prior to the procedure, a History and Physical was performed, and patient medications and allergies were reviewed. The patient's tolerance of previous anesthesia was also reviewed. The risks and benefits of the procedure and the sedation options and risks were discussed with the patient. All questions were answered, and informed consent was obtained. Prior Anticoagulants: The patient has taken no anticoagulant or antiplatelet agents. ASA Grade Assessment: II - A patient with mild systemic disease. After reviewing the risks and benefits, the patient was deemed in satisfactory condition to undergo the procedure. After I obtained informed consent, the scope was passed under direct vision. Throughout the procedure, the patient's blood pressure, pulse, and oxygen saturations were monitored continuously. The Colonoscope was introduced through the anus and advanced to the cecum, identified by appendiceal orifice and ileocecal valve. I was present and participated during the entire procedure, including non-gurrola portions, and during the administration and monitoring of Moderate Sedation. The colonoscopy was performed without difficulty. The patient tolerated the procedure well. The quality of the bowel preparation was good. The ileocecal valve, appendiceal orifice, and rectum were photographed. Moderate Sedation: MAC anesthesia was administered by the anesthesia team. Findings: The terminal ileum appeared normal. A few medium-mouthed diverticula were found in the sigmoid colon and descending colon. Normal mucosa was found in the entire colon. Biopsies for histology were taken with a cold forceps from the random colon biopsies for evaluation of microscopic colitis. Impression: - The examined portion of the ileum was normal. - Diverticulosis in the sigmoid colon and in the descending colon. - Normal mucosa in the entire examined colon. Biopsied. Recommendation: - Resume previous diet. - Continue present medications. - Await pathology results. - Repeat colonoscopy in 5 years for surveillance. - The patient is not currently taking anticoagulant or antiplatelet agents. - Patient has a contact number available for emergencies. The signs and symptoms of potential delayed complications were discussed with the patient. Return to normal activities tomorrow. Written discharge instructions were provided to the patient. Procedure Code(s): --- Professional --- 99626, Colonoscopy, flexible; with biopsy, single or multiple CPT copyright 2020 [employer]. All rights reserved. The codes documented in this report are preliminary and upon non destructive evaluation specialist review may be revised to meet current compliance requirements. Attending Participation: I personally performed the entire procedure. Scope In: 9:45:16 AM Scope Out: 9:52:44 AM MD Maddy Mckinley MD 08/20/2022 9:58:10 AM This report has been signed electronically by Maddy Prieto MD Number of Addenda: 0 Note Initiated On: 08/20/2022 9:35 AM Estimated Blood Loss: Estimated blood loss: none. Normal [facility] Flexible sigmoidoscopy study on 08-20-2022 Radiology Study observation (narrative) [facility] HISTORY PHYSICALon HISTORY PHYSICAL HNO ID: [id number] Author: Maddy Prieto MD Service: Gastroenterology Author Type: Physician Type: HANDP Filed: 08/20/2022 9:31 AM Note Text: HISTORY AND PHYSICAL Katya Lamb, 67 year old female here for colonoscopy to evaluate unexplained diarrhea Current history and physical on file: Yes Is a new History and Physical required for today's visit? No Indication for procedure: Diarrhea PROCEDURE(S) SCHEDULED FOR: Colonoscopy with or without biopsies and with or without removal of polyps or lesions, dilation (any means), treatment of bleeding (any means), based on clinical findings. BASELINE BEHAVIOR: Calm BASELINE ORIENTATION: A AND O x3 All medications and allergies reviewed: Yes Skin Assessment: Warm dry muscus membranes pink Airway/Respiratory Assessment: Airway: visualization of the uvula- Yes Mouth: opening greater than 2 fingerbreadths- Yes Neck: full range of motion- Yes Breath sounds clear/equal- Yes Cardiac Assessment: Regular rate and rhythm without murmur Abdominal Assessment: Abdomen soft, non-tender, no masses or organomegaly. Sedation Plan: Deep Additional Comments: None Maddy Prieto MD Normal [facility] NURSING PROGon 08-20-2022 NURSING PROG HNO ID: [id number] Author: Rere Catherine RN Service: ? Author Type: Registered Nurse Type: Nursing Progress Note Filed: 08/20/2022 10:32 AM Note Text: Patient assisted to restroom to pass air. Patient was able to pass air. States readiness for discharge. Normal [facility] SURGICAL PATHOLOGYon 023 CASE REPORT Normal [facility] Comment on above: Order Comment: Specangelina barba Type: TISSUE SPECIMENOrdering Facility: [facility] Address: [address] [place] [address] Result Comment: Surg ica Pathology Report Case: [id number] Authorizing Provider: Maddy Prieto, Collected: 08/20/2022 09:50 AM Ordering Location: Ambulatory Surgery Received: 08/21/2022 04:47 PM Pathologist: Peng Morris MD, PhD Specimen: COLON BIOPSY, random Performed By: #### S ####[facility] [id number] [address] OF [facility] FINAL DIAGNOSIS Normal [facility] Comment on above: Order Comment: Sherlyn barba Type: TISSUE SPECIMENOrdering Facility: [facility] Address: [address] [place] [address] Result Comment: A. R andom colon, biopsy: -Colonic mucosa with no diagnostic abnormality. -No evidence of lymphocytic or collagenous colitis. Performed By: #### S ####[facility] [id number] [address] STATES OF [facility] FINAL PERFORMING LAB Normal [facility] Comment on above: Order Comment: Sherlyn barba Type: TISSUE SPECIMENOrdering Facility: [facility] Address: [address] [address] Result Comment: Diag nostic interpretation performed at [facility], [facility] [address]# [id number] Vacuum System Tester: Bi Hammond M.D. Performed By: #### S ####[facility] [id number] [address] GROSS DESCRIPTION A. COLON BIOPSY Normal [facility] Comment on above: Order Comment: Speci freda Type: TISSUE SPECIMENOrdering Facility: [facility] Address: [address] [address] Result Comment: Rece ived in formalin are multiple pieces of rabago, soft tissue aggregating to 1.7 x 0.3 x 0.2 cm. Totally submitted in one cassette. SS August 21, 2022 8:57 PM Gross examination performed at [facility], [facility] [place] [address] Performed By: #### S ####[facility] [id number] [address] OF [facility] CNPSherly 08-19-2022 CNPN Telephone (GSTNOR) KATYA LAMB ([id number]) 1955 F Date Time Provider Department 08/19/22 PATTI CABA During your visit today, we recorded the following information about you: Blanka Mitchell Janine 08/19/2022 11:03 AM Signed Please review stool test results you ordered on patient; scanned this morning. Blanka Caba PA-C 08/19/2022 12:09 PM Signed Please let patient know stool testing is negative. Will need to complete EGD/colonoscopy as scheduled. Roma Marshall Ma 08/19/2022 12:28 PM Signed Pt notified Roma Marshall Ma Allergies As of Date: 08/19/2022 Noted Allergy Reaction MORPHINE 12/06/2014 14 - Other: See Comments 12 - Shortness of Breath SULFAMETHOXAZOLE-TRIME THOPRIM 12/06/2014 14 - Other: See Comments TRIMETHOPRIM 01/04/2018 4 - Hives Date Reviewed: 08/11/2022 Reviewed by: Patti Caba PA-C - Fully Assessed Reason for Visit: Results [95] Prescriptions as of 08/19/2022 - carvedilol (COREG) 3.125 mg tablet TAKE 1 TABLET BY MOUTH TWICE A DAY MUST ADMINISTER WITH A MEAL/FOOD - lisinopril (ZESTRIL) 40 mg tablet Take 40 mg by mouth once daily. - LORazepam (ATIVAN) 1 mg tablet TAKE 1 TABLET BY MOUTH EVERY DAY AT BEDTIME NEEDED FOR ANXIETY - ondansetron orally disintegrating (ZOFRAN ODT) 4 mg disintegrating tablet TAKE 1 TABLET ORALLY EVERY 8 HOURS NEEDED NEEDED FOR NAUSEA - pantoprazole DR (PROTONIX) 40 mg tablet Take 40 mg by mouth daily at bedtime. - simvastatin (ZOCOR) 20 mg tablet Take 20 mg by mouth daily at bedtime. - sertraline 150 mg capsule Take 150 mg by mouth once daily. - denosumab (PROLIA) 60 mg/mL Inject 60 mg subcutaneously one time only. Problem List As Of Date: 08/19/2022 (None) Encounter Status:Closed by PATTI CABA on 08/19/22 Normal [facility] No Panel Informationon 08-13 Stool Calprotectin 43 ug/g 0-120 [facility] Comment on above: Concentration Interp retation Follow-Up< 5 - 50 ug/g Normal None>50 -120 ug/g Borderline Re-evaluate in 4-6 weeks >120 ug/g Abnormal Repeat as clinically indicatedPerformed at: [facility] [id number] Director: Maribel Rhodes MD, Phone: [phone] Stool Pancreatic Elastase 330 >200 [facility] Comment on above: Result Units: ug Yi st./g Severe Pancreatic Insufficiency: <100 Moderate Pancreatic Insufficiency: 100 - 200 Normal: >200Performed at: [facility] [id number] Director: Maribel Rhodes MD, Phone: [phone] CNCOon 08-11-2022 CNCO Letter Text Normal [facility] CNOVon 08-11-2022 CNOV Office Visit ([facility]STNOR ) ADONISKATYA Laverne ([id number]) 1955 Date Time Provider Department 08/11/22 2:15 PM PATTI CABA GSTSOY During your visit today, we recorded the following information about you: Pulse Blood pressure Weight Height 69/minute 126/74 93.8 kg 1.702 m Patti Caba PA-C 08/11/2022 2:57 PM Signed CHIEF COMPLAINT: Patient presents with: Abnormal weight loss : Epigastric pain, diarrhea This consult was requested by Opal Staton MD for an opinion regarding abnormal weight loss, epigastric pain, diarrhea. My final recommendations will be communicated to the requesting health care provider by way of the shared medical record for internal providers or letter via the [employer] for external providers. HPI: Katya Lamb is a 67 year old female who presents for Abnormal weight loss (Epigastric pain, diarrhea ). PMHx of colon polyps, depression, HTN Patient tells me that she has been having intermittent bouts of diarrhea for past 1.5 years. Cannot identify any triggers. Reports soft bowel movements every day when she's not having the diarrhea and usually feels like she's fully emptying. Went to ED last Thursday with diarrhea, feels constipated now. Took Pepto which helped the diarrhea a bit. Also endorses constant bloating, but worse after eating. Does not experience abdominal pain, just constant pressure / discomfort and excessive flatulence / belching. Was put on Pantoprazole about 2 months ago, discontinued it, then went back on about 5 days ago. [place] heartburn when she was off of it. Reports low appetite as well. History of cholecystecomy in 2018. Denies bloody or black stools, nausea, vomiting, dysphagia, abdominal pain. Denies pertinent GI family history. Record Review: [facility] / Outside records reviewed. PAST MEDICAL HISTORY Diagnosis Date Adenomatous colon polyp Depression Diverticulosis HTN (hypertension) Hypercholesteremia PAST SURGICAL HISTORY Procedure Laterality Date COLONOSCOPY 09/17/2015 tubular adenoma x2, diverticulosis LIGATE FALLOPIAN TUBE 1989 REMOVAL GALLBLADDER 12/2017 TREAT ECTOPIC 1982 Left Ovary and tube removed Allergies: ALLERGIES Allergen Reactions Morphine Other: See Comments, Shortness of Breath Sulfamethoxazole-Tr* Other: See Comments Trimethoprim Hives Medications: carvedilol (COREG) 3.125 mg tablet TAKE 1 TABLET BY MOUTH TWICE A DAY MUST ADMINISTER WITH A MEAL/FOOD lisinopril (ZESTRIL) 40 mg tablet Take 40 mg by mouth once daily. LORazepam (ATIVAN) 1 mg tablet TAKE 1 TABLET BY MOUTH EVERY DAY AT BEDTIME NEEDED FOR ANXIETY ondansetron orally disintegrating (ZOFRAN ODT) 4 mg disintegrating tablet TAKE 1 TABLET ORALLY EVERY 8 HOURS NEEDED NEEDED FOR NAUSEA pantoprazole DR (PROTONIX) 40 mg tablet Take 40 mg by mouth daily at bedtime. simvastatin (ZOCOR) 20 mg tablet Take 20 mg by mouth daily at bedtime. sertraline 150 mg capsule Take 150 mg by mouth once daily. denosumab (PROLIA) 60 mg/mL Inject 60 mg subcutaneously one time only. FAMILY HISTORY Problem Relation Age of Onset Colon Cancer No Family History Employer And Job Title: None on file Years Of Education Completed: Not specified Marital Status: Social History Tobacco Use Smoking status: Never Smokeless tobacco: Never Substance Use Topics Alcohol use: Never Drug use: Never Review of Systems: Review of Systems Constitutional: Positive for appetite change, fatigue and unexpected weight change. Gastrointestinal: Positive for abdominal distention and abdominal pain. Gas All other systems reviewed and are negative. Are you taking any blood thinners? No Physical Examination: BP 126/74 Pulse 69 Ht 5' 7" (1.70m) Wt 206 lb 12.8 oz (93.8kg) BMI 32.38 kg/(m2). Physical Exam Constitutional: Appearance: Normal appearance. She is obese. HENT: Head: Normocephalic and atraumatic. Eyes: General: No scleral icterus. Extraocular Movements: Extraocular movements intact. Conjunctiva/sclera: Conjunctivae normal. Pupils: Pupils are equal, round, and reactive to light. Cardiovascular: Rate and Rhythm: Normal rate and regular rhythm. Pulses: Normal pulses. Heart sounds: Normal heart sounds. Pulmonary: Effort: Pulmonary effort is normal. Breath sounds: Normal breath sounds. Abdominal: General: Abdomen is flat. Bowel sounds are normal. Palpations: Abdomen is soft. Tenderness: There is no abdominal tenderness. Musculoskeletal: General: Normal range of motion. Cervical back: Normal range of motion and neck supple. Skin: General: Skin is warm and dry. Coloration: Skin is not jaundiced. Neurological: General: No focal deficit present. Mental Status: She is alert and oriented to person, place, and time. Psychiatric: Mood and Affect: Mood normal. Behavior: Behavior norm (more content not included)... Normal [facility] Basophil percentageOrdered B y: Dr. Jeronimo on 08-02-2022 Bilirubin [Mass/Vol] 0.40 mg/dL 0.20-1.00 [facility] Comment on above: For patients on eltr ombopag therapy, use of Dimension [place] TBIL is not recommended. Chloride [Moles/Vol] 108 mmol/L 98-107 [facility] Glucose [Mass/Vol] 116 mg/dL 74-106 [facility] Comment on above: Fasting Glucose resu lt from 100 to 125 mg/dL suggests IMPAIRED HOMEOSTASIS per A.D.A. criteria. Potassium [Moles/Vol] 3.5 mmol/L 3.5-5.1 [facility] Protein [Mass/Vol] 7.5 g/dL 6.4-8.2 [facility] Sodium [Moles/Vol] 136 mmol/L 136-145 [facility] WBC (Bld) [#/Vol] 6.5 10*3/uL 4.4-11.0 [facility] Blood erythrocytes count (nu mber/volume)Ordered By: Dr. Jeronimo on 08-02-2022 RBC (Bld) [#/Vol] 4.53 10*6/uL 4.2-5.4 [facility] Blood hemoglobin measurement (mass/volume)Ordered By: Dr. Jeronimo on 08-02-2022 Hemoglobin (Bld) [Mass/Vol] 12.6 g/dL 12.0-15.0 [facility] Blood platelet mean volumeOr dered By: Dr. Jeronimo on 08-02-2022 Platelet mean volume (Bld) [Entitic vol] 10.4 fL 6.2-12.0 [facility] Determination of erythrocyte mean corpuscular volume (MCV)Ordered By: Dr. Jeronimo on 08-02-2022 MCV (RBC) [Entitic vol] 86.5 fL 81-99 [facility] Hematocrit Auto (Bld) [Volum e fraction]Ordered By: Dr. Jeronimo on 08-02-2022 Hematocrit (Bld) [Volume fraction] 39.2 % 37-47 [facility] Laboratory - Chemistry and C hemistry - challengeOrdered By: Dr. Jeronimo on 08-02-2022 ALP [Catalytic activity/Vol] 76 U/L 45-117 [facility] ALT [Catalytic activity/Vol] 29 U/L 13-56 [facility] CO2 [Moles/Vol] 21.0 mmol/L 21.0-32.0 [facility] Globulin (S) [Mass/Vol] 3.8 g/dL 2.2-4.2 [facility] Lipase [Catalytic activity/Vol] 43 U/L 13-75 [facility] Comment on above: Please note:LIPASE r evised reference range effective 22. New Lipase methodology. Expected to produce lower values than the previous assay method. NEW Reference Range: 13 - 75 U/L Magnesium [Mass/Vol] 2.2 mg/dL 1.6-2.6 [facility] Urea nitrogen/Creatinine [Mass ratio] 24.1 mg/mg 10-20 [facility] Laboratory - Hematology and Cell countsOrdered By: Dr. Jeronimo on 08-02-2022 Erythrocyte distribution width (RBC) [Entitic vol] 41.1 fL 35.1-43.9 [facility] Erythrocyte distribution width (RBC) [Ratio] 13.1 % 11.6-14.6 [facility] MCH (RBC) [Entitic mass] 27.8 pg 27.0-32.0 [facility] MCHC Auto (RBC) [Mass/Vol]Or dered By: Dr. Jeronimo on 08-02-2022 MCHC (RBC) [Mass/Vol] 32.1 g/dL 32-36 [facility] No Panel InformationOrdered By: Dr. Jeronimo on 08-02-2022 Estimated Creatinine Clearance Calc 53.09 ml/min [facility] Estimated GFR (MDRD) Amer 94 mL/min >60 [facility] Comment on above: GFR Calc Estimated GFR (MDRD) Non-Af Amer 77 mL/min >60 [facility] Comment on above: Non- GFR Calc Platelets bldOrdered By: Dr. Jeronimo on 08-02-2022 Platelets (Bld) [#/Vol] 288 10*3/uL 150-450 [facility] Serum or plasma albumin ricky urement (mass/volume)Ordered By: Dr. Jeronimo on 08-02-2022 Albumin [Mass/Vol] 3.7 g/dL 3.2-5.0 [facility] Serum or plasma albumin/glob ulin mass ratioOrdered By: Dr. Jeronimo on 08-02-2022 Albumin/Globulin [Mass ratio] 1.0 {ratio} 0.9-2.4 [facility] Serum or plasma calcium ricky urement (mass/volume)Ordered By: Dr. Jeronimo on 08-02-2022 Calcium [Mass/Vol] 9.0 mg/dL 8.5-10.1 [facility] Serum or plasma creatinine m easurement (mass/volume)Ordered By: Dr. Jeronimo on 08-02-2022 Creatinine [Mass/Vol] 0.79 mg/dL 0.55-1.02 [facility] Comment on above: The validity of the calculated GFR & GFRAA in patients over 70 years has not been determined. Clinical correlation is essential. Serum or plasma urea nitroge n measurement (mass/volume)Ordered By: Dr. Jeronimo on 08-02-2022 Urea nitrogen [Mass/Vol] 19 mg/dL 7-18 [facility] Stool enteric pathogen panel by probe and target amplification methodOrdered By: Naeem Jeronimo on 08-02-2022 Gastrointestinal pathogens panel HANNAH+probe (Stl) [facility] Thin prep Papanicolaou smear with manual screeningOrdered By: Dr. Jeronimo on 08-02-2022 Thin prep Papanicolaou smear with manual screening 21 U/L 15-37 [facility] Thin prep Papanicolaou smear with manual screening 7 5-15 [facility] Basophil percentageOrdered B y: Juan Palma on 05-23-2022 Chloride [Moles/Vol] 108 mmol/L 98-107 [facility] Glucose [Mass/Vol] 92 mg/dL 74-106 [facility] Potassium [Moles/Vol] 4.6 mmol/L 3.5-5.1 [facility] Sodium [Moles/Vol] 139 mmol/L 136-145 [facility] Laboratory - Chemistry and C hemistry - challengeOrdered By: Juan Palma on 05-23-2022 CO2 [Moles/Vol] 27.0 mmol/L 21.0-32.0 [facility] Urea nitrogen/Creatinine [Mass ratio] 27.6 mg/mg 10-20 [facility] No Panel InformationOrdered By: Juan Palma on 05-23-2022 Estimated GFR (MDRD) Amer 98 mL/min >60 [facility] Comment on above: GFR Calc Estimated GFR (MDRD) Non-Af Amer 81 mL/min >60 [facility] Comment on above: Non- GFR Calc Serum or plasma calcium ricky urement (mass/volume)Ordered By: Juan Palma on 05-23-2022 Calcium [Mass/Vol] 9.1 mg/dL 8.5-10.1 [facility] Serum or plasma creatinine m easurement (mass/volume)Ordered By: Juan Palma on 05-23-2022 Creatinine [Mass/Vol] 0.76 mg/dL 0.55-1.02 [facility] Comment on above: The validity of the calculated GFR & GFRAA in patients over 70 years has not been determined. Clinical correlation is essential. Serum or plasma urea nitroge n measurement (mass/volume)Ordered By: Juan Palma on 05-23-2022 Urea nitrogen [Mass/Vol] 21 mg/dL 7-18 [facility] Thin prep Papanicolaou smear with manual screeningOrdered By: Juan Palma on 05-23-2022 Thin prep Papanicolaou smear with manual screening 4 5-15 [facility] Laboratory - Microbiology an d Antimicrobial susceptibilityon 04-21-2022 S. pyogenes Ag IA Ql (Unsp spec) Positive [facility] Basophil percentageon 2021 Bilirubin [Mass/Vol] 0.40 mg/dL 0.20-1.00 [facility] Work Phone: Comment on above: For patients on eltr ombopag therapy, use of Dimension [place] TBIL is not recommended. Chloride [Moles/Vol] 108 mmol/L 98-107 [facility] Work Phone: Cholesterol [Mass/Vol] 160 mg/dL <200 [facility] Work Phone: Comment on above: <200 mg/dL Desirable 200-240 mg/dL Borderline >240 mg/dL High Risk Glucose [Mass/Vol] 99 mg/dL 74-106 [facility] Work Phone: Potassium [Moles/Vol] 4.6 mmol/L 3.5-5.1 [facility] Work Phone: Protein [Mass/Vol] 7.5 g/dL 6.4-8.2 [facility] Work Phone: Sodium [Moles/Vol] 140 mmol/L 136-145 [facility] Work Phone: Triglyceride [Mass/Vol] 103 mg/dL [facility] Work Phone: Comment on above: The drugs N-Acetylcy steine and Metamizole may falsely depress this assay.Serum Triglycerides Reference Interval Normal <150 mg/dL Borderline high 150 - 199 mg/dL High 200 - 499 mg/dL Very High > or = 500 mg/dL Laboratory - Chemistry and C hemistry - challengeon 04-02-2021 ALP [Catalytic activity/Vol] 75 U/L 45-117 [facility] Work Phone: [phone] ALT [Catalytic activity/Vol] 26 U/L 13-56 [facility] Work Phone: [phone] CO2 [Moles/Vol] 25.0 mmol/L 21.0-32.0 [facility] Work Phone: [phone] Globulin (S) [Mass/Vol] 3.7 g/dL 2.2-4.2 [facility] Work Phone: [phone] Urea nitrogen/Creatinine [Mass ratio] 26.5 mg/mg 10-20 [facility] Work Phone: [phone] No Panel Informationon 04-02 Estimated GFR (MDRD) Amer 105 mL/min >60 [facility] Work Phone: Comment on above: GFR Calc Estimated GFR (MDRD) Non-Af Amer 87 mL/min >60 [facility] Work Phone: [phone] Comment on above: Non- GFR Calc Serum or plasma albumin ricky urement (mass/volume)on 04-02-2021 Albumin [Mass/Vol] 3.8 g/dL 3.2-5.0 [facility] Work Phone: [phone] Serum or plasma albumin/glob ulin mass ratioon 04-02-2021 Albumin/Globulin [Mass ratio] 1.0 {ratio} 0.9-2.4 [facility] Work Phone: [phone] Serum or plasma calcium ricky urement (mass/volume)on 04-02-2021 Calcium [Mass/Vol] 8.8 mg/dL 8.5-10.1 [facility] Work Phone: [phone] Serum or plasma cholesterol in HDL measurement (mass/volume)on 04-02-2021 Cholesterol in HDL [Mass/Vol] 47 mg/dL [facility] Work Phone: [phone] Comment on above: The drugs N-Acetylcy steine and Metamizole may falsely depress this assay. Reference Range HDL <40 mg/dL Low HDL Cholesterol HDL >or= 60 mg/dL High HDL Cholesterol Serum or plasma cholesterol in VLDL measurement (mass/volume)on 04-02-2021 Cholesterol in VLDL [Mass/Vol] 21 mg/dL 5-40 [facility] Work Phone: Serum or plasma creatinine m easurement (mass/volume)on 04-02-2021 Creatinine [Mass/Vol] 0.72 mg/dL 0.55-1.02 [facility] Work Phone: Comment on above: The validity of the calculated GFR & GFRAA in patients over 70 years has not been determined. Clinical correlation is essential. Serum or plasma low density lipoprotein (LDL) cholesterol measurement (mass/volume)on 04-02-2021 Cholesterol in LDL [Mass/Vol] 92 mg/dL 0-130 [facility] Work Phone: Serum or plasma urea nitroge n measurement (mass/volume)on 04-02-2021 Urea nitrogen [Mass/Vol] 19 mg/dL 7-18 [facility] Work Phone: Thin prep Papanicolaou smear with manual screeningon 04-02-2021 Thin prep Papanicolaou smear with manual screening 15 U/L 15-37 [facility] Work Phone: Thin prep Papanicolaou smear with manual screening 7 5-15 [facility] Work Phone: Laboratory - Microbiology an d Antimicrobial susceptibilityon 02-21-2021 SARS-CoV-2 (COVID-19) RNA HANNAH+probe Ql (Unsp spec) Detected Not Detect [facility] Work Phone: Comment on above: Normal Reference Ran ge: Not DetectedMethod:(RT-PCR) real-time reverse transcriptase PCRLuminex DINA Instrument*The Food and Drug Administration (FDA) has issued an Emergency Use Authorization (EAU) for the DINA SARS-CoV-2 Assay for the rapid detection of the virus that causes COVID-19. This test has been validated, but the FDAs independent review of this validation is pending.*Negative results do not preclude infection and should not be used as the sole basis for treatment or patient management. Optimum specimen types and timing for peak viral levels during infections caused by SARS-CoV-2 have not been determined. Collection of multiple specimens from the same patient may be necessary to detect the virus. The possibility of a false negative result should be considered if the patient has clinical presentation or has had recent exposure. Office Visit: [facility]: sinusitis, pharyngitison 10-16-2016 Documentation of current medications (procedure) Done Invalid Interpretation Code [facility] Work Phone: Fall risk assessment Yes [facility] Work Phone: Protein mass conc Done [facility] Work Phone: Tobacco smoking status NHIS Never [facility] Work Phone: Tobacco smoking status [place] Never smoker [facility] Work Phone: Tobacco use [facility] Never smoker Invalid Interpretation Code [facility] Work Phone: Vital Signs Date Time Vital Sign Value Performing Clinician Facility 11-01-2024 08:58-0400 Body height 172.[address] Jeancarlos Sanchez DO Work Phone: [facility] 11-01-2024 08:58-0400 Body mass index (BMI) [Ratio] 33.1 kg/m2 Dr. Jeancarlos Sanchez DO Work Phone: [facility] 11-01-2024 08:58-0400 Body temperature 96.8 [degF] Dr. Jeancarlos Sanchez DO Work Phone: [facility] 11-01-2024 08:58-0400 Body weight 98.[address] Jeancarlos Sanchez DO Work Phone: [facility] 11-01-2024 08:58-0400 Diastolic blood pressure 68 mm[Hg] Dr. Jeancarlos Sanchez DO Work Phone: [facility] 11-01-2024 08:58-0400 Heart rate 85 /min Dr. Jeancarlos Sanchez DO Work Phone: [facility] 11-01-2024 08:58-0400 Respiratory rate 16 /min Dr. Jeancarlos Sanchez DO Work Phone: [facility] 11-01-2024 08:58-0400 SaO2% (BldA) [Mass fraction] 97 % Dr. Jeancarlos Sanchez DO Work Phone: [facility] 11-01-2024 08:58-0400 Systolic blood pressure 124 mm[Hg] Dr. Jeancarlos Sanchez DO Work Phone: [facility] 05-28-2024 09:31-0400 Body temperature 98.2 [degF] Dr. Jeancarlos Sanchez DO Work Phone: [facility] 05-28-2024 09:31-0400 Diastolic blood pressure 82 mm[Hg] Dr. Jeancarlos Sanchez DO Work Phone: [facility] 05-28-2024 09:31-0400 Heart rate 79 /min Dr. Jeancarlos Sanhcez DO Work Phone: [facility] 05-28-2024 09:31-0400 Respiratory rate 16 /min Dr. Jeancarlos Sanchez DO Work Phone: [facility] 05-28-2024 09:31-0400 SaO2% (BldA) [Mass fraction] 97 % Dr. Jeancarlos Sanchez DO Work Phone: [facility] 05-28-2024 09:31-0400 Systolic blood pressure 134 mm[Hg] Dr. Jeancarlos Sanchez DO Work Phone: [facility] 05-03-2024 08:53-0400 Body height 172.[address] Jeancarlos Sanchez DO Work Phone: [facility] 05-03-2024 08:53-0400 Body mass index (BMI) [Ratio] 33.2 kg/m2 Dr. Jeancarlos Sanchez DO Work Phone: [facility] 05-03-2024 08:53-0400 Body temperature 97.2 [degF] Dr. Jeancarlos Sanchez DO Work Phone: [facility] 05-03-2024 08:53-0400 Body weight 99.[address] Jeancarlos Sanchez DO Work Phone: [facility] 05-03-2024 08:53-0400 Diastolic blood pressure 76 mm[Hg] Dr. Jeancarlos Sanchez DO Work Phone: [facility] 05-03-2024 08:53-0400 Heart rate 78 /min Dr. Jeancarlos Sanchez DO Work Phone: [facility] 05-03-2024 08:53-0400 Respiratory rate 16 /min Dr. Jeancarlos Sanchez DO Work Phone: [facility] 05-03-2024 08:53-0400 SaO2% (BldA) [Mass fraction] 96 % Dr. Jeancarlos Sanchez DO Work Phone: [facility] 05-03-2024 08:53-0400 Systolic blood pressure 118 mm[Hg] Dr. Jeancarlos Sanchez DO Work Phone: [facility] 04-06-2024 14:00-0500 Body mass index (BMI) [Ratio] 32.8 kg/m2 Dr. Jeancarlos Sanchez DO Work Phone: [facility] 04-06-2024 14:00-0500 Body temperature 97.8 [degF] Dr. Jeancarlos Sanchez DO Work Phone: [facility] 04-06-2024 14:00-0500 Body weight 97.[address] Jeancarlos Sanchez DO Work Phone: [facility] 04-06-2024 14:00-0500 Diastolic blood pressure 72 mm[Hg] Dr. Jeancarlos Sanchez DO Work Phone: [facility] 04-06-2024 14:00-0500 Heart rate 83 /min Dr. Jeancarlos Sanchez DO Work Phone: [facility] 04-06-2024 14:00-0500 Respiratory rate 18 /min Dr. Jeancarlos Sanchez DO Work Phone: [facility] 04-06-2024 14:00-0500 SaO2% (BldA) [Mass fraction] 96 % Dr. Jeancarlos Sanchez DO Work Phone: [facility] 04-06-2024 14:00-0500 Systolic blood pressure 130 mm[Hg] Dr. Jeancarlos Sanchez DO Work Phone: [facility] 08-05-2023 13:02-0400 Body mass index (BMI) [Ratio] 33.91 kg/m2 Chance Vogt [employer]CEIVING [employer] Work Phone: [facility] 08-05-2023 13:02-0400 Body temperature 98.2 [degF] Chancejung Vogt RECEIVING TELLER.[employer] Work Phone: [facility] 08-05-2023 13:02-0400 Body weight 98.2 kg Chance Sin RECEIVING TELLER.[employer] Work Phone: [facility] 08-05-2023 13:02-0400 Diastolic blood pressure 72 mm[Hg] Chance Vogt RECEIVING TELLER.[employer] Work Phone: [facility] 08-05-2023 13:02-0400 Heart rate 88 /min Chance Vogt RECEIVING TE[employer]ER.[employer] Work Phone: [facility] 08-05-2023 13:02-0400 Respiratory rate 16 /min Chance Sin RECEIVING TELLER.[employer] Work Phone: [facility] 08-05-2023 13:02-0400 SaO2% (BldA) [Mass fraction] 95 % Chancejung Vogt RECEIVING TELLER.[employer] Work Phone: [facility] 08-05-2023 13:02-0400 Systolic blood pressure 132 mm[Hg] Chance Vogt RECEIVING TE[employer]ER.[employer] Work Phone: [facility] 12-29-2022 14:27-0500 Body height 170.[address] Jeancarlos Sanchez Work Phone: [facility] 12-29-2022 14:27-0500 Body mass index (BMI) [Ratio] 34.2 kg/m2 Dr. Jeancarlos Sanchez Work Phone: [facility] 12-29-2022 14:27-0500 Body temperature 97.9 [degF] Dr. Jeancarlos Sanchez Work Phone: [facility] 12-29-2022 14:27-0500 Body weight 98.[address] Jeancarlos Sanchez Work Phone: [facility] 12-29-2022 14:27-0500 Diastolic blood pressure 80 mm[Hg] Dr. Jeancarlos Sanchez Work Phone: [facility] 12-29-2022 14:27-0500 Heart rate 73 /min Dr. Jeancarlos Sanchez Work Phone: [facility] 12-29-2022 14:27-0500 Respiratory rate 16 /min Dr. Jeancarols Sanchez Work Phone: [facility] 12-29-2022 14:27-0500 SaO2% (BldA) [Mass fraction] 99 % Dr. Jeancarlos Sanchez Work Phone: [facility] 12-29-2022 14:27-0500 Systolic blood pressure 142 mm[Hg] Dr. Jeancarlos Sanchez Work Phone: [facility] 11-18-2022 10:56-0400 Body height 170.2 cm Patti Rosales PA-C Work Phone: [facility] 11-18-2022 10:56-0400 Body weight 97.52 kg Patti Rosales PA-C Work Phone: [facility] 11-18-2022 10:56-0400 Diastolic blood pressure 84 mm[Hg] Patti Rosales PA-C Work Phone: [facility] 11-18-2022 10:56-0400 Heart rate 72 /min Patti Rosales PA-C Work Phone: [facility] 11-18-2022 10:56-0400 Systolic blood pressure 138 mm[Hg] Patti Rosales PA-C Work Phone: [facility] 10-29-2022 09:33-0400 Body mass index (BMI) [Ratio] 33 kg/m2 Dr. Jeancarlos Sanchez Work Phone: [facility] 10-29-2022 09:33-0400 Body temperature 96.4 [degF] Dr. Jeancarlos Sanchez Work Phone: [facility] 10-29-2022 09:33-0400 Body weight 95.[address] Jeancarlos Sanchez Work Phone: [facility] 10-29-2022 09:33-0400 Diastolic blood pressure 74 mm[Hg] Dr. Jeancarlos Sanchez Work Phone: [facility] 10-29-2022 09:33-0400 Heart rate 74 /min Dr. Jeancarlos Sanchez Work Phone: [facility] 10-29-2022 09:33-0400 Respiratory rate 18 /min Dr. Jeancarlos Sanchez Work Phone: [facility] 10-29-2022 09:33-0400 SaO2% (BldA) [Mass fraction] 97 % Dr. Jeancarlos Sanchez Work Phone: [facility] 10-29-2022 09:33-0400 Systolic blood pressure 124 mm[Hg] Dr. Jeancarlos Sanchez Work Phone: [facility] 09-10-2022 10:39-0400 Diastolic blood pressure 56 mm[Hg] Pop Garcia MD Work Phone: [facility] 09-10-2022 10:39-0400 Heart rate 63 /min Pop Garcia MD Work Phone: [facility] 09-10-2022 10:39-0400 Respiratory rate 18 /min Pop Garcia MD Work Phone: [facility] 09-10-2022 10:39-0400 SaO2% (BldA) [Mass fraction] 95 % Pop Garcia MD Work Phone: [facility] 09-10-2022 10:39-0400 Systolic blood pressure 100 mm[Hg] Pop Garcia MD Work Phone: [facility] 09-10-2022 10:22-0400 Body temperature 97.59 [degF] Pop Garcia MD Work Phone: [facility] 09-10-2022 09:49-0400 Body height 170.2 cm Pop Garcia MD Work Phone: [facility] 09-10-2022 09:49-0400 Body mass index (BMI) [Ratio] 32.26 kg/m2 Pop Garcia MD Work Phone: [facility] 09-10-2022 09:49-0400 Body weight 93.44 kg Pop Garcia MD Work Phone: [facility] 08-20-2022 10:17-0400 Diastolic blood pressure 71 mm[Hg] Maddy Prieto MD Work Phone: [facility] 08-20-2022 10:17-0400 Heart rate 55 /min Maddy Prieto MD Work Phone: [facility] 08-20-2022 10:17-0400 Respiratory rate 16 /min Maddy Prieto MD Work Phone: [facility] 08-20-2022 10:17-0400 SaO2% (BldA) [Mass fraction] 96 % Maddy Prieto MD Work Phone: [facility] 08-20-2022 10:17-0400 Systolic blood pressure 141 mm[Hg] Maddy Prieto MD Work Phone: [facility] 08-20-2022 10:00-0400 Body temperature 97.2 [degF] Maddy Prieto MD Work Phone: [facility] 08-20-2022 09:23-0400 Body height 170.2 cm Maddy Prieto MD Work Phone: [facility] 08-20-2022 09:23-0400 Body mass index (BMI) [Ratio] 32.26 kg/m2 Maddy Prieto MD Work Phone: [facility] 08-20-2022 09:23-0400 Body weight 93.44 kg Maddy Prieto MD Work Phone: [facility] 08-06-2022 11:33-0400 Body height 170.[address] Jeancarlos Sanchez Work Phone: [facility] 08-06-2022 11:33-0400 Body mass index (BMI) [Ratio] 31.9 kg/m2 Dr. Jeancarlos Sanchez Work Phone: [facility] 08-06-2022 11:33-0400 Body temperature 97.6 [degF] Dr. Jeancarlos Sanchez Work Phone: [facility] 08-06-2022 11:33-0400 Body weight 92.[address] Jeancarlos Sanchez Work Phone: [facility] 08-06-2022 11:33-0400 Diastolic blood pressure 62 mm[Hg] Dr. Jeancarlos Sanchez Work Phone: [facility] 08-06-2022 11:33-0400 Heart rate 71 /min Dr. Jeancarlos Sanchez Work Phone: [facility] 08-06-2022 11:33-0400 Respiratory rate 12 /min Dr. Jeancarlos Sanchez Work Phone: [facility] 08-06-2022 11:33-0400 SaO2% (BldA) [Mass fraction] 97 % Dr. Jeancarlos Sanchez Work Phone: [facility] 08-06-2022 11:33-0400 Systolic blood pressure 104 mm[Hg] Dr. Jeancarlos Sanchez Work Phone: [facility] 08-02-2022 13:28-0400 Respiratory rate 16 /min Dr. Jeancarlos Sanchez Work Phone: [facility] 08-02-2022 11:28-0400 Body height 170.[address] Jeancarlos Sanchez Work Phone: [facility] 08-02-2022 11:28-0400 Body mass index (BMI) [Ratio] 32.1 kg/m2 Dr. Jeancarlos Sanchez Work Phone: [facility] 08-02-2022 11:28-0400 Body temperature 97.7 [degF] Dr. Jeancarlos Sanchez Work Phone: [facility] 08-02-2022 11:28-0400 Body weight 92.[address] Jeancarlos Sanchez Work Phone: [facility] 08-02-2022 11:28-0400 Diastolic blood pressure 87 mm[Hg] Dr. Jeancarlos Sanchez Work Phone: [facility] 08-02-2022 11:28-0400 Heart rate 88 /min Dr. Jeancarlos Sanchez Work Phone: [facility] 08-02-2022 11:28-0400 SaO2% (BldA) [Mass fraction] 96 % Dr. Jeancarlos Sanchez Work Phone: [facility] 08-02-2022 11:28-0400 Systolic blood pressure 137 mm[Hg] Dr. Jeancarlos Sanchez Work Phone: [facility] 07-18-2022 01:20-0400 Diastolic blood pressure 67 mm[Hg] Dr. Jeancarlos Sanchez Work Phone: [facility] 07-18-2022 01:20-0400 Systolic blood pressure 133 mm[Hg] Dr. Jeancarlos Sanchez Work Phone: [facility] 07-18-2022 00:14-0400 Body mass index (BMI) [Ratio] 34.1 kg/m2 Dr. Jeancarlos Sanchez Work Phone: [facility] 07-18-2022 00:14-0400 Body temperature 96.8 [degF] Dr. Jeancarlos Sanchez Work Phone: [facility] 07-18-2022 00:14-0400 Body weight 98.[address] Jeancarlos Sanchez Work Phone: [facility] 07-18-2022 00:14-0400 Heart rate 75 /min Dr. Jeancarlos Sanchez Work Phone: [facility] 07-18-2022 00:14-0400 Respiratory rate 16 /min Dr. Jeancarlos Sanchez Work Phone: [facility] 07-18-2022 00:14-0400 SaO2% (BldA) [Mass fraction] 96 % Dr. Jeancarlos Sanchez Work Phone: [facility] 06-05-2022 15:23-0400 Diastolic blood pressure 85 mm[Hg] Dr. Jeancarlos Sanchez Work Phone: [facility] 06-05-2022 15:23-0400 Respiratory rate 70 /min Dr. Jeancarlos Sanchez Work Phone: [facility] 06-05-2022 15:23-0400 Systolic blood pressure 144 mm[Hg] Dr. Jeancarlos Sanchez Work Phone: [facility] 04-21-2022 13:07-0400 Body temperature 99.3 [degF] Dr. Jeancarlos Sanchez Work Phone: [facility] 04-21-2022 13:07-0400 Diastolic blood pressure 82 mm[Hg] Dr. Jeancarlos Sanchez Work Phone: [facility] 04-21-2022 13:07-0400 Heart rate 80 /min Dr. Jeancarlos Sanchez Work Phone: [facility] 04-21-2022 13:07-0400 Respiratory rate 16 /min Dr. Jeancarlos Sanchez Work Phone: [facility] 04-21-2022 13:07-0400 SaO2% (BldA) [Mass fraction] 98 % Dr. Jeancarlos Sanchez Work Phone: [facility] 04-21-2022 13:07-0400 Systolic blood pressure 122 mm[Hg] Dr. Jeancarlos Sanchez Work Phone: [facility] 04-10-2022 15:10-0500 Body mass index (BMI) [Ratio] 34.6 kg/m2 Dr. Jeancarlos Sanchez Work Phone: [facility] 04-10-2022 15:10-0500 Body temperature 95.4 [degF] Dr. Jeancarlos Sanchez Work Phone: [facility] 04-10-2022 15:10-0500 Body weight 100.[address] Jeancarlos Sanchez Work Phone: [facility] 04-10-2022 15:10-0500 Diastolic blood pressure 86 mm[Hg] Dr. Jeancarlos Sanchez Work Phone: [facility] 04-10-2022 15:10-0500 Heart rate 85 /min Dr. Jeancarlos Sanchez Work Phone: [facility] 04-10-2022 15:10-0500 Respiratory rate 18 /min Dr. Jeancarlos Sanchez Work Phone: [facility] 04-10-2022 15:10-0500 SaO2% (BldA) [Mass fraction] 96 % Dr. Jeancarlos Sanchez Work Phone: [facility] 04-10-2022 15:10-0500 Systolic blood pressure 164 mm[Hg] Dr. Jeancarlos Sanchez Work Phone: [facility] 04-02-2021 09:04-0500 Body height 170.[address] Jeancarlos Sanchez Work Phone: [facility] Work Phone: 04-02-2021 09:04-0500 Body mass index (BMI) [Ratio] 33.8 kg/m2 Dr. Jeancarlos Sanchez Work Phone: [facility] Work Phone: 04-02-2021 09:04-0500 Body temperature 97.6 [degF] Dr. Jeancarlos Sanchez Work Phone: [facility] Work Phone: 04-02-2021 09:04-0500 Body weight 97.[address] Jeancarlos Sanchez Work Phone: [facility] Work Phone: 04-02-2021 09:04-0500 Diastolic blood pressure 70 mm[Hg] Dr. Jeancarlos Sanchez Work Phone: [facility] Work Phone: 04-02-2021 09:04-0500 Heart rate 91 /min Dr. Jeancarlos Sanchez Work Phone: [facility] Work Phone: 04-02-2021 09:04-0500 Respiratory rate 18 /min Dr. Jeancarlos Sanchez Work Phone: [facility] Work Phone: 04-02-2021 09:04-0500 SaO2% (BldA) [Mass fraction] 96 % Dr. Jeancarlos Sanchez Work Phone: [facility] Work Phone: 04-02-2021 09:04-0500 Systolic blood pressure 120 mm[Hg] Dr. Jeancarlos Sanchez Work Phone: [facility] Work Phone: 10-16-2016 10:09-0400 BMI (Body Mass Index) 31.6 kg/m2 Catrachito RUANO [facility] Work Phone: 10-16-2016 10:09-0400 Body Temperature 98.2 [degF] Catrachito RUANO [facility] Work Phone: 10-16-2016 10:09-0400 BP Diastolic 88 mm[Hg] Catrachito RUANO [facility] Work Phone: 10-16-2016 10:09-0400 BP Systolic 130 mm[Hg] Catrachito RUANO [facility] Work Phone: 10-16-2016 10:09-0400 Height 175.26 cm Catrachito RUANO [facility] Work Phone: 10-16-2016 10:09-0400 Pulse (Heart Rate) 89 /min Catrachito RUANO [facility] Work Phone: 10-16-2016 10:09-0400 Respiratory Rate 12 /min Catrachito RUANO [facility] Work Phone: 10-16-2016 10:090400 Weight 97.07 kg Catrachito RUANO [facility] Work Phone: 12-06-2014 09:35-0400 BSA (Body Surface Area) 2.11 m2 Catrachito RUANO [facility] Work Phone: Encounters Encounter Date Encounter Type Care Provider Facility Start: 11-25-2024 ambulatory Jeancarlos Sanchez Facilit y:[facility] Start: 11-01-2024 End: 11-01-[address] Jeancarlos Burnette DO -[facility] Work Phone: Start: 11-01-2024 End: 11-01-[address] Jeancarlos Sanchez DO Work Phone: -[facility] Start: 09-06-2024 End: 09-06-2024 Patient encounter procedure FABIENNE ORTIZ -[facility] Work Phone: Start: 09-06-2024 End: 09-06-[address] Jeancarlos Sanchez DO Work Phone: -[facility] Start: 09-02-2024 ambulatory Jeancarlos Sanchez Facilit y:[facility] Start: 05-28-2024 End: 05-28-2024 Patient encounter procedure Kelle GARRIDO [facility] Work Phone: Start: 05-28-2024 End: 05-28-2024 ambulatory Jeancarlos Sanchez Facility:[facility] Start: 05-03-2024 End: 05-03-[address] Jeancarlos Burnette DO -[facility] Work Phone: Start: 05-03-2024 End: 05-03-[address] Jeancarlos Sanchez DO Work Phone: [facility] Work Phone: Start: 05-03-2024 End: 05-03-2024 ambulatory Jeancarlos Sanchez Facility:[facility] Start: 04-06-2024 End: 04-06-[address] Jeancarlos Burnette DO -[facility] Work Phone: Start: 04-06-2024 End: 04-06-2024 ambulatory Jeancarlos Sanchez Facility:[facility] [place] Start: 02-25-2024 End: 02-25-[address] Opal Staton MD -[facility] Work Phone: Start: 02-25-2024 End: 02-25-2024 ambulatory Jeancarlos Sanchez Facility:[facility] [place] [facility] Start: 11-20-2023 End: 11-20-2023 ambulatory Jeancarlos Sanchez Facility:[facility] Start: 08-07-2023 Telephone encounter Savita RUANO Work Phone: [facility] Comment on above: Results Start: 08-05-2023 End: 08-05-2023 ambulatory OPAL STATON Facility:[facility] Start: 08-05-2023 End: 08-05-2023 Patient encounter procedure Chance Vogt APRN.CNP Work Phone: [facility] Comment on above: Abdominal pressure ( Primary Dx); Flank pain Start: 12-29-2022 End: 12-29-[address] Jeancarlos Sanchez Work Phone: [facility] Work Phone: Start: 12-29-2022 End: 12-29-[address] Jeancarlos Sanchez Work Phone: [facility] Work Phone: Start: 11-18-2022 End: 11-18-2022 ambulatory OPAL STATON Facility:[facility] Start: 11-18-2022 End: 11-18-2022 Patient encounter procedure Patti Caba PA-C Work Phone: [facility] Comment on above: Gastroesophageal ref lux disease, unspecified whether esophagitis present (Primary Dx); Diarrhea, unspecified type; Fatty metamorphosis of liver Start: 10-29-2022 End: 10-29-[address] Jeancarlos Sanchez Work Phone: [facility] Work Phone: Start: 09-10-2022 End: 09-10-2022 ambulatory OPAL Jay DAHLSHEMAR Facility:[facility] Start: 09-10-2022 End: 09-10-2022 Subsequent hospital visit by physician Pop Garcia MD Work Phone: Ambulatory Surgery Comment on above: Gastroesophageal ref lux disease, unspecified whether esophagitis present [K21.9] Start: 09-08-2022 ambulatory Pop Garcia MD Work Phone: [facility] Start: 08-20-2022 End: 08-20-2022 ambulatory OPAL Jay DAHLSHEMAR Facility:[facility] Start: 08-20-2022 End: 08-20-2022 Subsequent hospital visit by physician Maddy Prieto MD Work Phone: [facility] Comment on above: Diarrhea, unspecifie d type [R19.7] Start: 08-19-2022 Telephone encounter Patti Caba PA-C Work Phone: [facility] Comment on above: Results Start: 08-18-2022 End: 08-18-[address] Jeancarlos Sanchez Work Phone: [facility] Work Phone: Start: 08-18-2022 End: 08-18-[address] Jeancarlos Sanchez Work Phone: [facility] Work Phone: Start: 08-15-2022 End: 08-15-[address] Jeancarlos Sanchez Work Phone: [facility] Work Phone: Start: 08-13-2022 End: 08-13-[address] Jeancarlos Sanchez Work Phone: [facility] Work Phone: Start: 08-13-2022 End: 08-13-[address] [facility] Work [facility]: Start: 08-11-2022 End: 08-11-2022 ambulatory OPAL Jay SHEMAR Facility:[facility] Start: 08-06-2022 End: 08-06-[address] Jeancarlos Sanchez Work Phone: [facility] Work Phone: Start: 08-02-2022 End: 08-02-2022 Emergency department patient visit Dr[facility] Start: 07-18-2022 End: 07-18-2022 Emergency department patient visit Dr[facility]arl[facility] Start: 06-05-2022 End: 06-05-[address] Jeancarlos Sanchez Work Phone: [facility] Start: 05-23-2022 End: 05-23-[address] Jeancarlos Sanchez Work Phone: [facility] Start: 04-21-2022 End: 04-21-[address] Jeancarlos Sanchez Work Phone: [facility] Start: 04-10-2022 End: 04-10-[address] Jeancarlos Sanchez Work Phone: [facility] Start: 05-21-2021 End: 05-21-[address] Jeancarlos Sanchez Work Phone: [facility]-Outpatient Breast [facility] Start: 04-02-2021 End: 04-02-[address] Jeancarlos Sanchez Work Phone: [facility] Start: 02-21-2021 End: 02-21-[address] Jeancarlos Sanchez Work Phone: [facility] Start: 10-02-2020 Encounter for gynecological examination (general) (routine) without abnormal findings Dr. Jeancarlos Sanchez Work Phone: [facility] Procedures Date Procedure Procedure Detail Performing Clinician Start: 08-05-2023 Urnls dip stick/tablet rgnt auto w/o microscopy Chance Vogt [employer] Work Phone: Start: 12-29-2022 X-ray of both feet Dr. Jeancarlos Sanchez Work Phone: Start: 09-10-2022 Level iv surg pathology gross&microscopic exam Pop Garcia MD Work Phone: Start: 09-10-2022 Esophagogastroduodenoscopy transoral diagnostic Patti Dallas PA-C Work Phone: Start: 08-20-2022 Level iv surg pathology gross&microscopic exam Maddy Prieto MD Work Phone: Start: 08-20-2022 Colonoscopy flx dx w/collj spec when pfrmd Patti Dallas PA-C Work Phone: Start: 08-20-2022 Colonoscopy Pop Garcia MD Work Phone: Start: 08-18-2022 Computed tomography of abdomen and pelvis with contrast Dr. Jeancarlos Sanchez Work Phone: Start: 08-02-[address] Jeancarlos Sanchez Work Phone: Start: 05-21-[address] Jeancarlos Sanchez Work Phone: Plan of Treatment Date Care Activity Detail Author Start: 08-21-2027 Colonoscopy Colonoscopy [facility] Start: 08-21-2027 Colorectal Cancer Screening Colorectal Cancer Screening [facility] Start: 08-21-2027 Screening for malignant neoplasm of colon [facility] Start: 11-16-2024 MG Breast - bilateral Screening [facility] Start: 11-01-2024 CT angiography of coronary arteries [facility] Start: 10-11-2023 Covid-19 Vaccine ( season) Covid-19 Vaccine ( season) [facility] Start: 10-11-2023 Influenza vaccination [facility] Start: 08-21-2023 Colonoscopy COLONOSCOPY [facility] Start: 08-21-2023 COLORECTAL CANCER SCREENING COLORECTAL CANCER SCREENING [facility] Start: 02-09-2023 Advance Directive Discussion Advance Directive Discussion [facility] Start: 02-09-2023 Behavioral Health Screening Behavioral Health Screening [facility] Start: 10-10-2022 Covid-19 Vaccine ( season) Covid-19 Vaccine () [facility] Start: 10-10-2022 Influenza vaccination [facility] Start: 08-06-2022 Patient referral [facility] Work Phone: Start: 08-02-2022 [facility] Start: 02-09-2022 ADVANCE DIRECTIVE DISCUSSION ADVANCE DIRECTIVE DISCUSSION [facility] Start: 02-09-2022 DEPRESSION ASSESSMENT DEPRESSION ASSESSMENT [facility] Start: 05-31-2020 BONE DENSITY BONE DENSITY [facility] Start: 05-31-2020 Bone Density Screening Bone Density Screening [facility] Start: 05-31-2020 Pneumococcal Vaccine: 65+ (1 - PCV) Pneumococcal Vaccine: 65+ (1 - PCV) [facility] Start: 05-31-2020 Pneumococcal Vaccine: 65+ (1 of 1 - PCV) Pneumococcal Vaccine: 65+ (1 of 1 - PCV) [facility] Start: 05-31-2020 PNEUMOCOCCAL: 65+ (1 - PCV) PNEUMOCOCCAL: 65+ (1 - PCV) [facility] Start: 05-31-2020 Screening for osteoporosis Bone Density Screening [facility] Start: 10-16-2016 End: 10-16-2016 Appointment Appointment [facility] Work Phone: Start: 2015 RSV Vaccine (1 - 1-dose 60+ series) RSV Vaccine (1 - 1-dose 60+ series) [facility] Start: 12-06-2014 End: 12-06-2014 Diagnostic colonoscopy Colonoscopy [facility] Work Phone: Start: 05-31-2005 SHINGRIX VACCINE (1 of 2) SHINGRIX VACCINE (1 of 2) [facility] Start: 05-31-2000 COLOGUARD (FIT-DNA) COLOGUARD (FIT-DNA) [facility] Start: 05-31-2000 Colonoscopy COLONOSCOPY [facility] Start: 05-31-2000 COLORECTAL CANCER SCREENING COLORECTAL CANCER SCREENING [facility] Start: 05-31-[address] COLONOGRAPHY [facility] Start: 05-31-2000 DIABETES SCREEN DIABETES SCREEN [facility] Start: 05-31-2000 Diabetes Screening Diabetes Screening [facility] Start: 05-31-2000 FECAL OCCULT BLOOD FECAL OCCULT BLOOD [facility] Start: 05-31-2000 Lipid 1996 panel - Serum or Plasma Lipid Screening [facility] Start: 05-31-2000 Lipid panel Lipid Screening [facility] Start: 05-31-2000 LIPID SCREEN LIPID SCREEN [facility] Start: 05-31-2000 Screening for malignant neoplasm of colon [facility] Start: 05-31-2000 SIGMOIDOSCOPY SIGMOIDOSCOPY [facility] Start: 1995 Mammography [facility] Start: 1995 Screening for malignant neoplasm of breast Mammogram Screening [facility] Start: 05-31-1974 Urine microalbumin profile [facility] Start: 05-31-1973 Anxiety Screening Anxiety Screening [facility] Start: 05-31-1973 Depression Screening Depression Screening [facility] Start: 05-31-1973 HEPATITIS C SCREENING HEPATITIS C SCREENING [facility] Start: 05-31-1973 Hepatitis C screening Hepatitis C Screening [facility] Start: 1955 COVID-19 VACCINE (#1) COVID-19 VACCINE (#1) [facility] Bacteria identified in Urine by Culture URINE CULTURE Microbiology Routine Abdominal pressure 08/05/2023 1:45 PM EDT [facility] Work Phone: Enteric Bacteriology Enteric Bacteriology [facility] Gastrointestinal pat hogens panel - Stool by HANNAH with probe detection [facility] Patient Education [facility] Work Phone: Patient referral [facility] Work Phone[facility] Immunizations Immunization Date Immunization Notes Care Provider Manasa nelson 01-25-2009 novel [id number], preservative-free, injectable Dr. Jeancarlos Sanchez Work Phone: [facility] 01-25-2009 influenza virus vaccine, unspecified formulation Patti Caba PA-C Work Phone: [facility] Payers Date Payer Category Payer Self-pay [id number] 2021 Unknown MMO MMO MEDICARE SUPPLEMENT [id number] 2021-Present [phone] [address] [place] [address] Indemnity [id number] 2021 Unknown [id number] 2020 Medicare MEDICARE MEDICAR E A AND B [id number] 2020-Present [phone] [address] [address] [place] [address] Medicare [id number] 2020 Medicare [id number] Unknown [id number] Unknown [id number] Unknown [id number] Unknown [id number] Unknown [id number] Unknown [id number] Unknown [id number] Unknown [id number] Unknown [id number] Unknown [id number] Unknown [id number] Unknown [id number] Unknown [id number] Social History Date Type Detail Facility Start: 04-02-2021 End: 12-29-2022 Tobacco smoking status SCIS Unknown if ever smoked [facility] Start: 1955 Sex Assigned At Female W [facility] Start: 08-11-2022 Tobacco smoking stat us SCIS Never smoked tobacco [facility] Start: 08-11-2022 End: 08-20-2022 Tobacco use and exposure Smokeless tobacco non-user [facility] Start: 08-11-2022 End: 08-20-2022 Alcohol intake Lifetime non-drinker (finding) [facility] Start: 08-11-2022 End: 08-20-2022 History of Social function [facility] Start: 08-11-2022 End: 08-20-2022 Tobacco use panel [facility] National Score (1-100), lower number is lower risk 67 [facility] Start: 08-10-2022 Gender identity Identifies as female gender (finding) [facility] Start: 08-20-2022 End: 08-05-2023 Tobacco smoking status NHIS Ex-smoker [facility] End: 02-10-1992 History of tobacco use Current smoker [facility] End: 02-10-1992 History of tobacco use Cigarette Smoker [facility] Start: 05-08-2024 Sex Female (finding) [facility] Medical Equipment Procedure Code Equipment Code Equipment Original Text Equipment Identifier Dates Total cholecystectomy with exploration of common bile duct CLIP,HEMOLOGALILEO SASH [facility] [employer] [facility] Start: 12-21-2017 Total cholecystectomy with exploration of common bile duct CLIP,HEMOLOCK SASH [facility] [employer] [facility] FDA Start: 12-21-2017 Total cholecystectomy with exploration of common bile duct CLIP,HEMOLOCK MED WECK FDA Start: 12-21-2017 Total cholecystectomy with exploration of common bile duct CLIP,MASOOD NARAYANAN WECK FDA Start: 12-21-2017 Total cholecystectomy with exploration of common bile duct CLIP,MASOOD NARAYANAN WECK FDA Start: 12-21-2017 Total cholecystectomy with exploration of common bile duct CLIP,HEMDONNA NARAYANAN WECK FDA Start: 12-21-2017 Total cholecystectomy with exploration of common bile duct CLIP,MASOOD NARAYANAN WECK FDA Start: 12-21-2017 Total cholecystectomy with exploration of common bile duct CLIP,MASOOD NARAYANAN WECK FDA Start: 12-21-2017 Total cholecystectomy with exploration of common bile duct CLIP,HEMDONNA NARAYANAN WECK FDA Start: 12-21-2017 Total cholecystectomy with exploration of common bile duct CLIP,HEMDONNA NARAYANAN WECK FDA Start: 12-21-2017 Total cholecystectomy with exploration of common bile duct CLIP,MASOOD NARAYANAN WECK FDA Start: 12-21-2017 Total cholecystectomy with exploration of common bile duct CLIP,MASOOD PIZANOCK FDA Start: 12-21-2017 Total cholecystectomy with exploration of common bile duct CLIP,MASOOD NARAYANAN WEGALILEO FDA Start: 12-21-2017 Total cholecystectomy with exploration of common bile duct CLIP,MASOOD NARAYANAN WECK FDA Start: 12-21-2017 Total cholecystectomy with exploration of common bile duct CLIP,MAOSOD PIZANOCK FDA Start: 12-21-2017 Total cholecystectomy with exploration of common bile duct CLIP,MASOOD NARAYANAN WECK FDA Start: 12-21-2017 Mental Status Date Assessment Result Facility 07-18-2022 Cognitive function Level Of Cons ciousness Awake;Alert;Appropriate;Follow s Commands [facility] Work Phone: Clinical Notes 08-02-2022 to 11-01-2024 Note Date & Type Note Facility 11-01-2024 Progress note [facility] 05-28-2024 Evaluation note Diagnosis Onset Date Resolution Cellulitis of skin acute May 28, 2024 9:11am [facility] Work Phone: 1(850) 168-598701-16-2025 Evaluation note* Diagnosis Onset Date Resolution Status Admit Date Osteoporosis chronic February 8:53am Sinusitis, acute maxillary acute April 06, 2024 1:53pm Depression chronic May 03 8:49am High blood pressure chronic May 03, 2024 8:49am High cholesterol chronic May 032024 8:49am [facility] Work Phone: 1(941) 512-154206-28-2024 Telephone encounter Note* Telephone Encounter - Stefany Wilcox MA - 08/07/2023 2:33 PM EDT Per ER note, patient was treated with Augmentin for flare of diverticulitis. Spoke with providers, antibiotic prescribed should be sufficient to cover for UTI as well. Stefany Wilcox MA [facility]06-28-2024 Miscellaneous Notes* Telephone Encounter - Stefany Wilcox MA - 08/07/2023 2:33 PM EDT Per ER note, patient was treated with Augmentin for flare of diverticulitis. Spoke with providers, antibiotic prescribed should be sufficient to cover for UTI as well. Stefany Wilcox MA * Telephone Encounter - Savita Bailon PA - 08/07/2023 10:10 AM EDT Please contact patient and confirm she went to the ER and received treatment for her UTI. She does have bacteria in her urine, but it appears we sent to the emergency room. [facility] Telephone encounter Note * Telephone Encounter - Savita Bailon PA - 08/07/2023 10:10 AM EDT Please contact patient and confirm she went to the ER and received treatment for her UTI. She does have bacteria in her urine, but it appears we sent to the emergency room. [facility] Work Phone: 1(557) 531-123806-26-2024 NoteHNO ID: [id number] Author: CHANCE VOGT APRN.PLAQUE MAKER Service: ? Author Type: Nurse Practitioner Type: Progress Notes Filed: 08/05/2023 14:03 Note Text: Subjective HPI HPI Katya Lamb is a 68 year old female who presents today for CC of bilat lower abd pain, right flank pain, fever, loose stools. This started few days ago. Has tried otc medication for relief. Symptoms are worsened by nothing. . .Patient presents with: Abdominal Pain: lower abdominal pressure, loose stools x Thursday, fever Thursday only PAST MEDICAL HISTORY Diagnosis Date Adenomatous colon polyp Depression Diverticulosis HTN (hypertension) Hypercholesteremia PAST SURGICAL HISTORY Procedure Laterality Date COLONOSCOPY 09/17/2015 tubular adenoma x2, diverticulosis COLONOSCOPY SCREENING 08/20/2022 Diverticulosis, negative biopsy [facility]IC[facility] INJ 09/10/2022 Negative LIGATE FALLOPIAN TUBE 1989 REMOVAL GALLBLADDER 12/2017 TREAT ECTOPIC 1982 Left Ovary and tube removed ALLERGIES Morphine, Sulfamethoxazole-Trimethoprim, and Trimethoprim MEDICATIONS sertraline (ZOLOFT) 100 mg tabletDisp: Rfl: carvedilol (COREG) 3.125 mg tabletTAKE 1 TABLET BY MOUTH TWICE A DAY MUST ADMINISTER WITH A MEAL/FOODDisp: Rfl: lisinopril (ZESTRIL) 40 mg tabletTake 40 mg by mouth once daily.Disp: Rfl: LORazepam (ATIVAN) 1 mg tabletTAKE 1 TABLET BY MOUTH EVERY DAY AT BEDTIME NEEDED FOR ANXIETYDisp: Rfl: pantoprazole DR (PROTONIX) 40 mg tabletTake 40 mg by mouth daily at bedtime.Disp: Rfl: simvastatin (ZOCOR) 20 mg tabletTake 20 mg by mouth daily at bedtime.Disp: Rfl: denosumab (PROLIA) 60 mg/mLInject 60 mg subcutaneously one time only.Disp: Rfl: FAMILY HISTORY Problem Relation Age of Onset Colon Cancer No Family History Social History Tobacco Use Smoking status: Former Types: Cigarettes Quit date: 1992 Years since quittin.5 Smokeless tobacco: Never Vaping Use Vaping Use: Never used Substance Use Topics Alcohol use: Never Drug use: Never ROS Objective Blood pressure 132/72, pulse 88, temperature 36.8 ?C (98.2 ?F), resp. rate 16, weight 98.2 kg (216 lb 7.9 oz), SpO2 95%. Physical Exam Constitutional: General: She is not in acute distress. Appearance: Normal appearance. She is not toxic-appearing. Cardiovascular: Rate and Rhythm: Normal rate and regular rhythm. Heart sounds: Normal heart sounds. Pulmonary: Effort: Pulmonary effort is normal. Breath sounds: Normal breath sounds. Abdominal: General: Bowel sounds are normal. Palpations: Abdomen is soft. Tenderness: There is abdominal tenderness in the right lower quadrant and left lower quadrant. There is right CVA tenderness and guarding. Skin: General: Skin is warm and dry. ASSESSMENT/PLAN: 1. Abdominal pressure - ICD9: 789.00, ICD10: R10.9 (primary diagnosis) I will refer to ER UA: blood, kets, bili - UA DIP, URINE (POC) - URINE CULTURE 2. Flank pain - ICD9: 789.09, ICD10: R10.9 Refer to ER Chance Vogt APRN.[facility]06-26-2024 History of Present illness Narrative* Chance Vogt APRN.[employer] - 08/05/2023 1:10 PM EDT Subjective HPI HPI Katya Lamb is a 68 year old female who presents today for CC of bilat lower abd pain, right flank pain, fever, loose stools. This started few days ago. Has tried otc medication for relief.Symptoms are worsened by nothing. . .Patient presents with: Abdominal Pain: lower abdominal pressure, loose stools x Thursday, fever Thursday only PAST MEDICAL HISTORY Diagnosis Date Adenomatous colon polyp Depression Diverticulosis HTN (hypertension) Hypercholesteremia PAST SURGICAL HISTORY Procedure Laterality Date COLONOSCOPY 09/17/2015 tubular adenoma x2, diverticulosis COLONOSCOPY SCREENING 08/20/2022 Diverticulosis, negative biopsy EGD W/O [facility] SPEC VARICIES INJ 09/10/2022 Negative LIGATE FALLOPIAN TUBE 1989 REMOVAL GALLBLADDER 12/2017 TREAT ECTOPIC 1982 Left Ovary and tube removed ALLERGIES Morphine, Sulfamethoxazole-Trimethoprim, and Trimethoprim MEDICATIONS sertraline (ZOLOFT) 100 mg tablet^^Disp: ^Rfl: carvedilol (COREG) 3.125 mg tablet^TAKE 1 TABLET BY MOUTH TWICE A DAY MUST ADMINISTER WITH A MEAL/FOOD^Disp: ^Rfl: lisinopril (ZESTRIL) 40 mg tablet^Take 40 mg by mouth once daily.^Disp: ^Rfl: LORazepam (ATIVAN) 1 mg tablet^TAKE 1 TABLET BY MOUTH EVERY DAY AT BEDTIME NEEDED FOR ANXIETY^Disp: ^Rfl: pantoprazole DR (PROTONIX) 40 mg tablet^Take 40 mg by mouth daily at bedtime.^Disp: ^Rfl: simvastatin (ZOCOR) 20 mg tablet^Take 20 mg by mouth daily at bedtime.^Disp: ^Rfl: denosumab (PROLIA) 60 mg/mL^Inject 60 mg subcutaneously one time only.^Disp: ^Rfl: FAMILY HISTORY Problem Relation Age of Onset Colon Cancer No Family History Social History Tobacco Use Smoking status: Former Types: Cigarettes Quit date: 1992 Years since quittin.5 Smokeless tobacco: Never Vaping Use Vaping Use: Never used Substance Use Topics Alcohol use: Never Drug use: Never ROS Objective Blood pressure 132/72, pulse 88, temperature 36.8 C (98.2 F), resp. rate 16, weight 98.2 kg (216 lb7.9 oz), SpO2 95%. Physical Exam Constitutional: General: She is not in acute distress. Appearance: Normal appearance. She is not toxic-appearing. Cardiovascular: Rate and Rhythm: Normal rate and regular rhythm. Heart sounds: Normal heart sounds. Pulmonary: Effort: Pulmonary effort is normal. Breath sounds: Normal breath sounds. Abdominal: General: Bowel sounds are normal. Palpations: Abdomen is soft. Tenderness: There is abdominal tenderness in the right lower quadrant and left lower quadrant. There is right CVA tenderness and guarding. Skin: General: Skin is warm and dry. ASSESSMENT/PLAN: 1. Abdominal pressure - ICD9: 789.00, ICD10: R10.9 (primary diagnosis) I will refer to ER UA: blood, kets, bili - UA DIP, URINE (POC) - URINE CULTURE 2. Flank pain - ICD9: 789.09, ICD10: R10.9 Refer to ER Chance Vogt APRN.[employer] documented in this encounterL[facility] Instructions* Patient Instructions* Patti Caba PA-C - 11/18/2022 11:12 AM EDT -- Can try milk thistle for liver regeneration PRACTICAL SUGGESTIONS TO INCORPORATE MEDITERRANEAN DIET CATEGORY CONSUME AVOID Fruits and vegetables Wide variety of whole fruits and vegetables; try for at least 7-10 servings per day Vegetables prepared in butter or cream sauce High-fiber breads, cereals, and pasta Whole grain bread and cereal, bran, brown rice Sweets, white bread, biscuits, breadsticks, and other refined carbohydrates Protein that is low in saturated fat Lean cuts of meat (fat trimmed) or poultry (no skin); low-fat dairy foods (skim mild, yogurt) [place], sausage, other processed or high-fat meat, milk or cheese that is not low-fat, ice cream Fish or other source of omega-3 fatty acids, at least 1 or 2 times per week [place], trout, ruiz,water-packed tuna, mackerel (or fish oil supplement); flaxseed, spinach, walnuts Fried fish ( except when [place] fried in olive oil) Healthy oils for cooking, salad dressing, and other uses Extra-virgin olive oil, canola oil, flaxseed oil ("high-oleic" sunflower or safflower oil may also be an option) [place]-6 oils, (corn, sunflower, safflower, soybean, peanut) Peas, beans, legumes, and nuts Soybeans, lentils, or any kind of peas, beans, or legumes; tree nuts(eg. Almonds,pecans, walnuts, [place] nuts) Heavily salted or honey-roasted nuts; stale or rancid nuts Alcohol One 5-oz glass of wine, a 12-oz beer, or a 1.5oz drink containing distilled spirits with the evening meal Limit to no more than 1 drink daily for women, 2 drinks daily for men Fat Emphasize whole, natural foods as above; look for 'trans-fatty acid -free" margarine and snack foods Fast food, fried food, margarine, chips, crackers, baked goods, doughnuts, any processed food made with partially hydrogenated oil documented in this encounterL[facility]10-10-2023 NoteHNO ID: [id number] Author: Patti Caba PA-C Service: ? Author Type: Physician Clock And Watch Hands Dipper Type: Progress Notes Filed: 11/18/2022 11:18 AM Note Text: CHIEF COMPLAINT: Patient presents with: Recheck: Colon/EGD HPI Katya Lamb is a 67 year old female here today for Recheck (Colon/EGD ) PMHx of colon polyps, depression, HTN Patient tells me that she is feeling well today. Rare heartburn. No nausea, vomiting. Appetite is good. Notes her bowel movements are regular for her. Eating probiotic yogurts. No rectal bleeding. MRI 08-27-2022 IMPRESSION: Fatty infiltration of the liver associated with hepatomegaly. Foci of intercalated fat within the pancreas. Bilateral renal cysts. Degenerative changes of the lumbar spine. EGD 09/10/2022: Impression: - LA Grade A reflux esophagitis with no bleeding. Biopsied. - Medium-sized hiatal hernia. Recommendation: - Patient has a contact number available for emergencies. The signs and symptoms of potential delayed complications were discussed with the patient. Return to normal activities tomorrow. Written discharge instructions were provided to the patient. - Resume previous diet. - Continue present medications. - Await pathology results. - Return to GI clinic as previously scheduled. FINAL DIAGNOSIS A. Esophagus, lower, biopsy: -Squamous epithelium with no diagnostic abnormality. Colonoscopy 08/20/2022: Impression: - The examined portion of the ileum was normal. - Diverticulosis in the sigmoid colon and in the descending colon. - Normal mucosa in the entire examined colon. Biopsied. Recommendation: - Resume previous diet. - Continue present medications. - Await pathology results. - Repeat colonoscopy in 5 years for surveillance. - The patient is not currently taking anticoagulant or antiplatelet agents. - Patient has a contact number available for emergencies. The signs and symptoms of potential delayed complications were discussed with the patient. Return to normal activities tomorrow. Written discharge instructions were provided to the patient. FINAL DIAGNOSIS A. Random colon, biopsy: -Colonic mucosa with no diagnostic abnormality. -No evidence of lymphocytic or collagenous colitis. Last OV with me 08/11/2022: Assessment/Plan (K21.9) Gastroesophageal reflux disease, unspecified whether esophagitis present (primary encounter diagnosis) (R19.7) Diarrhea, unspecified type (R14.0) Postprandial bloating (Z86.010) History of colonic polyps 1. Gastroesophageal reflux disease, unspecified whether esophagitis present -- Patient with GERD, on Protonix 40 mg daily. Has associated upper abdominal bloating/discomfort. -- Plan for EGD for further evaluation -- Start OTC probiotic - EGD DIAGNOSTIC; Future 2. Diarrhea, unspecified type -- Patient with intermittent diarrhea for the last year. ?postchole syndrome -- Will check fecal calprotectin, pancreatic elastase -- Start OTC probiotic with at least 15 billion live cultures, 10+ strains -- Drink around 64 oz water daily -- Benefiber daily:2 teaspoons added to 8 ounces of water up to 3 times daily. -- Colonoscopy for further evaluation - CALPROTECTIN,FECAL - PANC ELASTASE, FECAL - COLONOSCOPY DIAGNOSTIC; Future 3. Postprandial bloating -- Patient with GERD, on Protonix 40 mg daily. Has associated upper abdominal bloating/discomfort. -- Will check pancreatic elastase, fecal calprotectin -- Plan for EGD for further evaluation -- Start OTC probiotic - CALPROTECTIN,FECAL - PANC ELASTASE, FECAL - COLONOSCOPY DIAGNOSTIC; Future - EGD DIAGNOSTIC; Future 4. History of colonic polyps - COLONOSCOPY DIAGNOSTIC; Future Follow up in office PRN. Current Outpatient Medications Medication Sig sertraline (ZOLOFT) 100 mg tablet carvedilol (COREG) 3.125 mg tablet TAKE 1 TABLET BY MOUTH TWICE A DAY MUST ADMINISTER WITH A MEAL/FOOD lisinopril (ZESTRIL) 40 mg tablet Take 40 mg by mouth once daily. LORazepam (ATIVAN) 1 mg tablet TAKE 1 TABLET BY MOUTH EVERY DAY AT BEDTIME NEEDED FOR ANXIETY pantoprazole DR (PROTONIX) 40 mg tablet Take 40 mg by mouth daily at bedtime. simvastatin (ZOCOR) 20 mg tablet Take 20 mg by mouth daily at bedtime. denosumab (PROLIA) 60 mg/mL Inject 60 mg subcutaneously one time only. No current facility-administered medications for this visit. Facility-Administered Medications Ordered in Other Visits Medication Dose Route Frequency lidocaine (PF) 10 mg/mL (1 %) 1-2 mg injection (XYLOCAINE) 0.1-0.2 mL INTRADERMAL PRN lactated ringers iv infusion 30 mL/hr INTRAVENOUS CONTINUOUS lidocaine (PF) 10 mg/mL (1 %) 1-2 mg injection (XYLOCAINE) 0.1-0.2 mL INTRADERMAL PRN lactated ringers iv infusion 30 mL/hr INTRAVENOUS CONTINUOUS ALLERGIES Allergen Reactions Morphine Other: See Comments, Shortness of Breath Sulfamethoxazole-Tr* Other: See Comments Trimethoprim Hives Social History Tobacco Use (more content not included)...[facility]10-10-2023 History of Present illness Narrative* Patti Caba PA-C - 11/18/2022 10:55 AM EDT CHIEF COMPLAINT: Patient presents with: Recheck: Colon/EGD HPI Katya Lamb is a 67 year old female here today for Recheck (Colon/EGD ) PMHx of colon polyps, depression, HTN Patient tells me that she is feeling well today. Rare heartburn. No nausea, vomiting. Appetite is good. Notes her bowel movements are regular for her. Eating probiotic yogurts. No rectal bleeding. MRI 08-27-2022 IMPRESSION: Fatty infiltration of the liver associated with hepatomegaly. Foci of intercalated fat within the pancreas. Bilateral renal cysts. Degenerative changes of the lumbar spine. EGD 09/10/2022: Impression: - LA Grade A reflux esophagitis with no bleeding. Biopsied. - Medium-sized hiatal hernia. Recommendation: - Patient has a contact number available for emergencies. The signs and symptoms of potential delayed complications were discussed with the patient. Return to normal activities tomorrow. Written discharge instructions were provided to the patient. - Resume previous diet. - Continue present medications. - Await pathology results. - Return to GI clinic as previously scheduled. FINAL DIAGNOSIS A. Esophagus, lower, biopsy: -Squamous epithelium with no diagnostic abnormality. Colonoscopy 08/20/2022: Impression: - The examined portion of the ileum was normal. - Diverticulosis in the sigmoid colon and in the descending colon. - Normal mucosa in the entire examined colon. Biopsied. Recommendation: - Resume previous diet. - Continue present medications. - Await pathology results. - Repeat colonoscopy in 5 years for surveillance. - The patient is not currently taking anticoagulant or antiplatelet agents. - Patient has a contact number available for emergencies. The signs and symptoms of potential delayed complications were discussed with the patient. Return to normal activities tomorrow. Written discharge instructions were provided to the patient. FINAL DIAGNOSIS A. Random colon, biopsy: -Colonic mucosa with no diagnostic abnormality. -No evidence of lymphocytic or collagenous colitis. Last OV with me 08/11/2022: Assessment/Plan (K21.9) Gastroesophageal reflux disease, unspecified whether esophagitis present (primary encounterdiagnosis) (R19.7) Diarrhea, unspecified type (R14.0) Postprandial bloating (Z86.010) History of colonic polyps 1. Gastroesophageal reflux disease, unspecified whether esophagitis present -- Patient with GERD, on Protonix 40 mg daily. Has associated upper abdominal bloating/discomfort. -- Plan for EGD for further evaluation -- Start OTC probiotic - EGD DIAGNOSTIC; Future 2. Diarrhea, unspecified type -- Patient with intermittent diarrhea for the last year. ?postchole syndrome -- Will check fecal calprotectin, pancreatic elastase -- Start OTC probiotic with at least 15 billion live cultures, 10+ strains -- Drink around 64 oz water daily -- Benefiber daily:2 teaspoons added to 8 ounces of water up to 3 times daily. -- Colonoscopy for further evaluation - CALPROTECTIN,FECAL - PANC ELASTASE, FECAL - COLONOSCOPY DIAGNOSTIC; Future 3. Postprandial bloating -- Patient with GERD, on Protonix 40 mg daily. Has associated upper abdominal bloating/discomfort. -- Will check pancreatic elastase, fecal calprotectin -- Plan for EGD for further evaluation -- Start OTC probiotic - CALPROTECTIN,FECAL - PANC ELASTASE, FECAL - COLONOSCOPY DIAGNOSTIC; Future - EGD DIAGNOSTIC; Future 4. History of colonic polyps - COLONOSCOPY DIAGNOSTIC; Future Follow up in office PRN. Current Outpatient Medications Medication Sig sertraline (ZOLOFT) 100 mg tablet carvedilol (COREG) 3.125 mg tablet TAKE 1 TABLET BY MOUTH TWICE A DAY MUST ADMINISTER WITH A MEAL/FOOD lisinopril (ZESTRIL) 40 mg tablet Take 40 mg by mouth once daily. LORazepam (ATIVAN) 1 mg tablet TAKE 1 TABLET BY MOUTH EVERY DAY AT BEDTIME NEEDED FOR ANXIETY pantoprazole DR (PROTONIX) 40 mg tablet Take 40 mg by mouth daily at bedtime. simvastatin (ZOCOR) 20 mg tablet Take 20 mg by mouth daily at bedtime. denosumab (PROLIA) 60 mg/mL Inject 60 mg subcutaneously one time only. No current facility-administered medications for this visit. Facility-Administered Medications Ordered in Other Visits Medication Dose Route Frequency lidocaine (PF) 10 mg/mL (1 %) 1-2 mg injection (XYLOCAINE) 0.1-0.2 mL INTRADERMAL PRN lactated ringers iv infusion 30 mL/hr INTRAVENOUS CONTINUOUS lidocaine (PF) 10 mg/mL (1 %) 1-2 mg injection (XYLOCAINE) 0.1-0.2 mL INTRADERMAL PRN lactated ringers iv infusion 30 mL/hr INTRAVENOUS CONTINUOUS ALLERGIES Allergen Reactions Morphine Other: See Comments, Shortness of Breath Sulfamethoxazole-Tr* Other: See Comments Trimethoprim Hives Social History Tobacco Use Smoking status: Former Types: Cigarettes Quit date: 1992 Years since quittin.7 Smokeless tobacco: Never Vaping Use Vaping Use: Never used Substance Use Topics Alcohol use: Never Drug use: Never PAST MEDICAL HISTORY Diagnosis Date Adenomatous colon polyp Depression Diverticulosis HTN (hypertension) Hypercholesteremia PAST SURGICAL HISTORY Procedure Laterality Date COLONOSCOPY 09/17/2015 tubular adenoma x2, diverticulosis COLONOSCOPY SCREENING 08/20/2022 Diverticulosis, negative biopsy EGD W/O [facility] SPEC VARICIES INJ 09/10/2022 Negative LIGATE FALLOPIAN TUBE 1989 REMOVAL GALLBLADDER 12/2017 TREAT ECTOPIC 1982 Left Ovary and tube removed FAMILY HISTORY Problem Relation Age of Onset Colon Cancer No Family History REVIEW OF SYSTEMS Review of Systems All other systems reviewed and are negative. PHYSICAL EXAM BP 138/84 Pulse 72 Ht 5' 7" (1.70m) Wt 215 lb (97.5kg) BMI 33.67 kg/(m^2). Physical Exam Constitutional: Appearance: Normal appearance. She is obese. HENT: Head: Normocephalic and atraumatic. Eyes: General: No scleral icterus. Extraocular Movements: Extraocular movements intact. Conjunctiva/sclera: Conjunctivae normal. Pupils: Pupils are equal, round, and reactive to light. Cardiovascular: Rate and Rhythm: Normal rate and regular rhythm. Pulses: Normal pulses. Heart sounds: Normal heart sounds. Pulmonary: Effort: Pulmonary effort is normal. Breath sounds: Normal breath sounds. Abdominal: General: Abdomen is flat. Bowel sounds are normal. Palpations: Abdomen is soft. Tenderness: There is no abdominal tenderness. Musculoskeletal: General: Normal range of motion. Cervical back: Normal range of motion and neck supple. Skin: General: Skin is warm and dry. Coloration: Skin is not jaundiced. Neurological: General: No focal deficit present. Mental Status: She is alert and oriented to person, place, and time. Psychiatric: Mood and Affect: Mood normal. Behavior: Behavior normal. Thought Content: Thought content normal. Judgment: Judgment normal. 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 Gastroesophageal reflux disease, unspecified whether esophagitis present -- Discussed EGD with patient today in detail. Doing much better on Protonix 40 mg daily. Getting this refilled by PCP. 2. Diarrhea, unspecified type -- Discussed colonoscopy in detail with patient today. Denies recent diarrhea flares. -- Recommend keeping diary during flares to try and pinpoint triggers. 3. Fatty metamorphosis of liver -- Discussed fatty liver in detail with patient. -- Recommend Mediterranean diet, exercise, weight loss to help with fatty liver Follow up in office 6 months/PRN. Recommended to please call office/go to ER if fever, chills, chest pain, SOB, diarrhea, nausea, emesis, worsening abdominal pain, dehydration occurs I spent a total of 20 minutes on the date of the service which included preparing to see the patient, [id number] patient care, completing clinical documentation, obtaining and/or reviewing separately obtained history, performing a medically appropriate examination, counseling and educating the pat ient/family/caregiver, and ordering medications, tests, or procedures. Patti Caba PA-C November 18, 2022 11:13 AM documented in this encounterLake [facility]08-02-2023 NoteHNO ID: [id number] Author: Carol Joseph RN Service: ? Author Type: Registered Nurse Type: Nursing Progress Note Filed: 09/10/2022 10:31 AM Note Text: Dr. Garcia at bedside to speak to patient. Verbalizes understanding.[facility]08-02-2023 Nurse Note* Carol Joseph RN - 09/10/2022 10:[address] Garcia at bedside to speak to patient. Verbalizes understanding. [facility]08-02-20[facility] Nurse Note* Carol Joseph RN - 09/10/2022 10:[address] Garcia at bedside to speak to patient. Verbalizes understanding. documented in this encounterLake County [facility]08-02-2023 Anesthesiology Preoperative evaluation and management note* Anesthesia PreOp - Pop Garcia MD - 09/10/2022 10:15 AM EDT HISTORY AND PHYSICAL Katya Lamb, 67 year old female Current history and physical on file: Yes Is a new History and Physical required for today's visit? No Indication for procedure: GERD PROCEDURE(S) SCHEDULED FOR: EGD (Esophagogastroduodenoscopy) with or without biopsies, removal of polyps or lesions, dilation (any means), treatment of bleeding ( any means), Barrx treatment of Riley's Esophagus, image tube placement or cryo therapy treatment based on clinical findings. BASELINE BEHAVIOR: Calm BASELINE ORIENTATION: A & O x3 All medications and allergies reviewed: Yes Skin Assessment: Warm dry mucus membranes pink Airway/Respiratory Assessment: Airway: visualization of the uvula- Yes Mouth: opening greater than 2 fingerbreadths- Yes Neck: full range of motion- Yes Breath sounds clear/equal- Yes Cardiac Assessment: Regular rate and rhythm without murmur Abdominal Assessment: Abdomen soft, non-tender, no masses or organomegaly. Sedation Plan: Moderate Additional Comments: None Pop Garcia MD [facility] Work Phone: 1(161) 893-372208-02-2023 Miscellaneous Notes* Anesthesia PreOp - Pop Garcia MD - 09/10/2022 10:15 AM EDT HISTORY AND PHYSICAL Katya Lamb, 67 year old female Current history and physical on file: Yes Is a new History and Physical required for today's visit? No Indication for procedure: GERD PROCEDURE(S) SCHEDULED FOR: EGD (Esophagogastroduodenoscopy) with or without biopsies, removal of polyps or lesions, dilation (any means), treatment of bleeding ( any means), Barrx treatment of Riley's Esophagus, image tube placement or cryo therapy treatment based on clinical findings. BASELINE BEHAVIOR: Calm BASELINE ORIENTATION: A & O x3 All medications and allergies reviewed: Yes Skin Assessment: Warm dry mucus membranes pink Airway/Respiratory Assessment: Airway: visualization of the uvula- Yes Mouth: opening greater than 2 fingerbreadths- Yes Neck: full range of motion- Yes Breath sounds clear/equal- Yes Cardiac Assessment: Regular rate and rhythm without murmur Abdominal Assessment: Abdomen soft, non-tender, no masses or organomegaly. Sedation Plan: Moderate Additional Comments: None Pop Garcia MD documented in this encounterLake County [facility]07-12-2023 NoteHNO ID: [id number] Author: Rere Catherine RN Service: ? Author Type: Registered Nurse Type: Nursing Progress Note Filed: 08/20/2022 10:44 AM Note Text: Dr Prieto at bedside to speak with patient and daughter in law.[facility]07-12-2023 Nurse Note* Rere Catherine RN - 08/20/2022 10:[address] Prieto at bedside to speak with patient and daughter in law. [facility]07-12-20[facility] Nurse Note* Rere Catherine RN - 08/20/2022 10:[address] Prieto at bedside to speak with patient and daughter in law. * Rere Catherine RN - 08/20/2022 10:32 AM EDT Patient assisted to restroom to pass air. Patient was able to pass air. States readiness for discharge. documented in this encounterLake County [facility]07-12-2023 Nurse Note* Rere Catherine RN - 08/20/2022 10:32 AM EDT Patient assisted to restroom to pass air. Patient was able to pass air. States readiness for discharge. [facility]07-12-[facility] History and physical note* Maddy Prieto MD - 08/20/2022 9:30 AM EDT HISTORY AND PHYSICAL Katya Laverne Lamb, 67 year old female here for colonoscopy to evaluate unexplained diarrhea Current history and physical on file: Yes Is a new History and Physical required for today's visit? No Indication for procedure: Diarrhea PROCEDURE(S) SCHEDULED FOR: Colonoscopy with or without biopsies and with or without removal of polyps or lesions, dilation (any means), treatment of bleeding (any means), based on clinical findings. BASELINE BEHAVIOR: Calm BASELINE ORIENTATION: A & O x3 All medications and allergies reviewed: Yes Skin Assessment: Warm dry muscus membranes pink Airway/Respiratory Assessment: Airway: visualization of the uvula- Yes Mouth: opening greater than 2 fingerbreadths- Yes Neck: full range of motion- Yes Breath sounds clear/equal- Yes Cardiac Assessment: Regular rate and rhythm without murmur Abdominal Assessment: Abdomen soft, non-tender, no masses or organomegaly. Sedation Plan: Deep Additional Comments: None Maddy Prieto MD [facility] Work Phone: [phone]) 918-119607-12-2023 History and physical note* Maddy Prieto MD - 08/20/2022 9:30 AM EDT HISTORY AND PHYSICAL Katya Lamb, 67 year old female here for colonoscopy to evaluate unexplained diarrhea Current history and physical on file: Yes Is a new History and Physical required for today's visit? No Indication for procedure: Diarrhea PROCEDURE(S) SCHEDULED FOR: Colonoscopy with or without biopsies and with or without removal of polyps or lesions, dilation (any means), treatment of bleeding (any means), based on clinical findings. BASELINE BEHAVIOR: Calm BASELINE ORIENTATION: A & O x3 All medications and allergies reviewed: Yes Skin Assessment: Warm dry muscus membranes pink Airway/Respiratory Assessment: Airway: visualization of the uvula- Yes Mouth: opening greater than 2 fingerbreadths- Yes Neck: full range of motion- Yes Breath sounds clear/equal- Yes Cardiac Assessment: Regular rate and rhythm without murmur Abdominal Assessment: Abdomen soft, non-tender, no masses or organomegaly. Sedation Plan: Deep Additional Comments: None Maddy Prieto MD [facility] Miscellaneous Notes* Telephone Encounter - Roma Marshall Ma - 08/19/2022 12:27 PM EDT Pt notified Roma Marshall Ma * Telephone Encounter - Patti Caba PA-C - 08/19/2022 12:08 PM EDT Please let patient know stool testing is negative. Will need to complete EGD/colonoscopy as scheduled. * Telephone Encounter - Blanka Miner - 08/19/2022 11:02 AM EDT Please review stool test results you ordered on patient; scanned this morning. Blanka Mitchell documented [facility]23 NoteHNO ID: [id number] Author: Patti Caba PA-C Service: ? Author Type: Physician Clock And Watch Hands Dipper Type: Progress Notes Filed: 08/11/2022 2:57 PM Note Text: CHIEF COMPLAINT: Patient presents with: Abnormal weight loss : Epigastric pain, diarrhea This consult was requested by Opal Staton MD for an opinion regarding abnormal weight loss, epigastric pain, diarrhea. My final recommendations will be communicated to the requesting health care provider by way of the shared medical record for internal providers or letter via the [employer] for external providers. HPI: Katya Lamb is a 67 year old female who presents for Abnormal weight loss (Epigastric pain, diarrhea ). PMHx of colon polyps, depression, HTN Patient tells me that she has been having intermittent bouts of diarrhea for past 1.5 years. Cannot identify any triggers. Reports soft bowel movements every day when she's not having the diarrhea and usually feels like she's fully emptying. Went to ED last Thursday with diarrhea, feels constipated now. Took Pepto which helped the diarrhea a bit. Also endorses constant bloating, but worse after eating. Does not experience abdominal pain, just constant pressure / discomfort and excessive flatulence / belching. Was put on Pantoprazole about 2 months ago, discontinued it, then went back on about 5 days ago. [place] heartburn when she was off of it. Reports low appetite as well. History of cholecystecomy in 2018. Denies bloody or black stools, nausea, vomiting, dysphagia, abdominal pain. Denies pertinent GI family history. Record Review: [facility] / Outside records reviewed. PAST MEDICAL HISTORY Diagnosis Date Adenomatous colon polyp Depression Diverticulosis HTN (hypertension) Hypercholesteremia PAST SURGICAL HISTORY Procedure Laterality Date COLONOSCOPY 09/17/2015 tubular adenoma x2, diverticulosis LIGATE FALLOPIAN TUBE 1989 REMOVAL GALLBLADDER 12/2017 TREAT ECTOPIC 1982 Left Ovary and tube removed Allergies: ALLERGIES Allergen Reactions Morphine Other: See Comments, Shortness of Breath Sulfamethoxazole-Tr* Other: See Comments Trimethoprim Hives Medications: carvedilol (COREG) 3.125 mg tablet TAKE 1 TABLET BY MOUTH TWICE A DAY MUST ADMINISTER WITH A MEAL/FOOD lisinopril (ZESTRIL) 40 mg tablet Take 40 mg by mouth once daily. LORazepam (ATIVAN) 1 mg tablet TAKE 1 TABLET BY MOUTH EVERY DAY AT BEDTIME NEEDED FOR ANXIETY ondansetron orally disintegrating (ZOFRAN ODT) 4 mg disintegrating tablet TAKE 1 TABLET ORALLY EVERY 8 HOURS NEEDED NEEDED FOR NAUSEA pantoprazole DR (PROTONIX) 40 mg tablet Take 40 mg by mouth daily at bedtime. simvastatin (ZOCOR) 20 mg tablet Take 20 mg by mouth daily at bedtime. sertraline 150 mg capsule Take 150 mg by mouth once daily. denosumab (PROLIA) 60 mg/mL Inject 60 mg subcutaneously one time only. FAMILY HISTORY Problem Relation Age of Onset Colon Cancer No Family History Employer And Job Title: None on file Years Of Education Completed: Not specified Marital Status: Social History Tobacco Use Smoking status: Never Smokeless tobacco: Never Substance Use Topics Alcohol use: Never Drug use: Never Review of Systems: Review of Systems Constitutional: Positive for appetite change, fatigue and unexpected weight change. Gastrointestinal: Positive for abdominal distention and abdominal pain. Gas All other systems reviewed and are negative. Are you taking any blood thinners? No Physical Examination: BP 126/74 Pulse 69 Ht 5' 7" (1.70m) Wt 206 lb 12.8 oz (93.8kg) BMI 32.38 kg/(m2). Physical Exam Constitutional: Appearance: Normal appearance. She is obese. HENT: Head: Normocephalic and atraumatic. Eyes: General: No scleral icterus. Extraocular Movements: Extraocular movements intact. Conjunctiva/sclera: Conjunctivae normal. Pupils: Pupils are equal, round, and reactive to light. Cardiovascular: Rate and Rhythm: Normal rate and regular rhythm. Pulses: Normal pulses. Heart sounds: Normal heart sounds. Pulmonary: Effort: Pulmonary effort is normal. Breath sounds: Normal breath sounds. Abdominal: General: Abdomen is flat. Bowel sounds are normal. Palpations: Abdomen is soft. Tenderness: There is no abdominal tenderness. Musculoskeletal: General: Normal range of motion. Cervical back: Normal range of motion and neck supple. Skin: General: Skin is warm and dry. Coloration: Skin is not jaundiced. Neurological: General: No focal deficit present. Mental Status: She is alert and oriented to person, place, and time. Psychiatric: Mood and Affect: Mood normal. Behavior: Behavior normal. Thought Content: Thought content normal. Judgment: Judgment normal. Assessment/Plan (K21.9) Gastroesophageal reflux disease, unspecified whether esophagitis present (primary encounter diagnosis) (R19.7) Diarrhea, unspecified type (R14 (more content not included)...[facility]06-24-[address] Jeronimo [facility] August 02, 2022 2:54pm Note Date/Time August 02, 2022 12:0 1pm [facility] Medical Records Department [address] [place] [address] Emergency Department Summary 08/02/22 MR#: [id number] Acct: [id number] Name: KATYA LAMB JANNA Rep #:[id number] : 1955 67 From: Naeem Jeronimo DO PCP: Dr. Jeancarlos Sanchez DO Status:RE G ER Location: ED HPI HPI - GI History of Present Illness Chief Complaint: Diarrhea Narrative Narrative: 67-year-old female presenting with diarrhea. She has had this for a couple of days. She has some abdominal cramping and is fairly diffuse. She also admits to some dyspepsia. She does not think she is eating anything out of the ordinary. She feels like she has something viral. She denies cough, nasal congestion, rhinorrhea. She has not any fevers. No urinary or vaginal complaints. She states she can eat and does not have any difficulty but she has not been eating because every time she eats she has diarrhea. No recent antibiotic use. [facility] Medical History Chronic headaches Depression High blood pressure High cholesterol Influenza A Home Medications denosumab 60 mg/mL subcutaneous syringe (Prolia) 60 mg subcut [id number] #1 mL 03/16/20 [Rx Last Taken Unknown] fluticasone propionate 50 mcg/actuation nasal spray,suspension (Flonase Allergy Relief) 2 spray intranasal DAILY PRN congestion, allergies #16 grams 12/04/20 [Rx Last Taken Unknown] simvastatin 20 mg tablet 20 mg PO QHS #90 tabs 10/03/21 [Rx Last Taken Unknown] pantoprazole 40 mg tablet,delayed release 40 mg PO QHS #90 tabs 02/14/22 [Rx Last Taken Unknown] sertraline 100 mg tablet See Rx Instructions .Route .COMPLEX #90 tabs 04/02/22 [Rx Last Taken Unknown] carvedilol 3.125 mg tablet (Coreg) 3.125 mg PO BID #60 tabs 05/09/22 [Rx Last Taken Unknown] lisinopril 40 mg tablet 40 mg PO DAILY #90 tabs 05/09/22 [Rx Last Taken Unknown] lorazepam 1 mg tablet 1 mg PO QHS PRN anxiety #90 tabs 07/17/22 [Rx Last Taken Unknown] ondansetron 4 mg disintegrating tablet 4 mg PO Q8H PRN PRN Nausea #20 tabs 08/02/22 [Rx Last Taken Unknown] Allergy/AdvReac Type Severity Reaction Status Date / Time sulfamethoxazole Allergy Hives Verified 08/02/22 11:29 [From Bactrim] trimethoprim [From Bactrim] Allergy Hives Verified 08/02/22 11:29 morphine AdvReac Low blood Verified 08/02/22 11:29 pressure Family History Mother Diabetes Heart disease Hypertension Myocardial infarction Father Myocardial infarction Brother Hypertension Diabetes Sister Diabetes Hypertension Grandfather Alzheimer's dementia Cancer Grandmother Fabiana Gehrigs disease Grandfather Heart disease Aunt Breast cancer Surgical History History of colonoscopy History of gynecologic surgery History of orthopedic surgery History of tubal ligation Social History Smoking Status: Former smoker alcohol intake: never substance use type: does not use what type of physical activity do you participate in: none ROS ROS ED Review of Systems ROS Unobtainable: Denies due to encephalopathy Constitutional Constitutional ED: Denies chills or fever(s) ENT ENT ED: Denies rhinorrhea or sore throat Cardiovascular Cardiovascular: Denies chest pain or palpitations Respiratory/Chest Respiratory/Chest: Denies cough or dyspnea Gastrointestinal Gastrointestinal: Reports diarrhea; Denies abdominal pain or melena Genitourinary Genitourinary ED: Denies dysuria or hematuria Musculoskeletal Musculoskeletal: Denies arthralgias or back pain Integumentary Denies abscess or Abrasions Neurologic Neurologic: Denies headache(s) or paresthesias Psychiatric Psychiatric: Denies anxiety or depression Endocrine Endocrinology: Denies polydipsia or polyphagia EXAM Physical Exam Const Vital Signs: 08/02/22 11:28 Temperature 97.7 F L Temperature Source Oral Pulse Rate 88 Respiratory Rate 14 Blood Pressure 137/87 H Blood Pressure Mean 103 Pulse Ox 96 Oxygen Delivery Method Room Air Positive well nourished General Appearance ED: NAD; Negative for pallor HEENT Reports moist mucous membranes normocephalic and atraumatic Resp normal respiratory effort and clear to auscultation bilaterally Auscultation: Negative for rales, rhonchi or wheezes Cardio regular rate and regular rhythm GI non-tender and non-distended Back/Spine no CVA tenderness Neuro CN's II-XII intact bilaterally Sensorium / Orientation: alert, oriented to person, oriented to place and oriented to time Psych mental status grossly normal and thought process normal Skin no wounds General Skin Exam: Negative for jaundice or pallor MDM MDM MDM Narrative Medical decision making narrative: Patient presenting with diarrhea. She does not have any significant abdominal pain. This is likely viral. Differential includes electrolyte abnormalities, dehydration, anemia. I ordered a stool study. CBC to assess white blood cell count, hemoglobin, platelets. CMP to assess liver function, renal function, electrolytes. Lipase to assess for pancreatitis. Patient medicated with a liter of normal saline and given a GI cocktail for her dyspepsia. She states she does not want anything for nausea or pain. Her CBC and CMP are unremarkable. Lipase is negative. She was unable to provide a stool sample in the 3 hours and 30 minutes that she was here. I suggested to her that this is likely viral in either way. I gave her Zofran for home and recommended she keepstaying hydrated. I recommended a bland diet. Return precautions were discussed. Impression: 1. Diarrhea Lab Data Labs: Laboratory Results - last 24 hr 08/02/22 08/02/22 12:10 12:10 WBC 6.5 RBC 4.53 Hgb 12.6 Hct 39.2 MCV 86.5 MCH 27.8 MCHC 32.1 RDW Std Deviation 41.1 RDW Coeff of Viktor 13.1 Plt Count 288 MPV 10.4 Sodium 136 Potassium 3.5 Chloride 108 H Carbon Dioxide 21.0 Anion Gap 7 BUN 19 H Creatinine 0.79 Estim Creat Clear Calc 53.09 Est GFR (MDRD) Af Amer 94 Est GFR (MDRD) Non-Af 77 BUN/Creatinine Ratio 24.1 H Glucose 116 H Calcium 9.0 Magnesium 2.2 Total Bilirubin 0.40 AST 21 ALT 29 Alkaline Phosphatase 76 Total Protein 7.5 Albumin 3.7 Globulin 3.8 Albumin/Globulin Ratio 1.0 Lipase 43 Discharge Plan Triage Chief Complaint: Diarrhea ED Provider: Naeem Jeronimo Dx/Rx/DC Orders Instructions: ED Diarrhea, Viral (Adult) Prescriptions: New ondansetron 4 mg tablet,disintegrating 4 mg PO Q8H PRN PRN (Reason: Nausea) Qty: 20 0RF No Action Prolia 60 mg/mL syringe 60 mg SC [id number] Qty: 1 2RF fluticasone propionate [Flonase Allergy Relief] 50 mcg/actuation spray,suspension 2 spray intranasal DAILY PRN (Reason: congestion, allergies) Qty: 16 2RF Rx Instructions: administer into each nostril simvastatin 20 mg tablet 20 mg PO QHS Qty: 90 3RF pantoprazole 40 mg tablet,delayed release (DR/EC) 40 mg PO QHS Qty: 90 0RF sertraline 100 mg tablet See Rx Instructions .ROUTE .COMPLEX Qty: 90 0RF Dose Instruction: TAKE 1 AND 1/2 TABLET ORALLY DAILY FOR DEPRESSION AT BEDTIME Rx Instructions: TAKE 1 AND 1/2 TABLET ORALLY DAILY FOR DEPRESSION AT BEDTIME carvedilol [Coreg] 3.125 mg tablet 3.125 mg PO BID Qty: 60 2RF Rx Instructions: must administer with a meal/food lisinopril 40 mg tablet 40 mg PO DAILY Qty: 90 3RF lorazepam 1 mg tablet 1 mg PO QHS PRN (Reason: anxiety) Qty: 90 0RF Primary Care Provider: Jeancarlos Sanchez Referrals: Jeancarlos Sanchez DO [Primary Care Provider] - Disposition Disposition: Home, Self Care What to do if you have Problems For any increased pain, shortness of breath, bleeding, nausea or vomiting, chestpain, or any unexpected problems, contact your Primary Care Provider. Call [facility] ([phone]) or report to the closest Emergency Room. Call 911 if necessary. 08/02/22 [id number] <Electronically signed by Naeem Phani DO> Cosigner Signature (if applicable): CC: Dr. Jeancarlos Sanchez, DO ~ Signed [facility] Work Phone: Evaluation note* Diagnosis Onset Date Resolution Status Depression chronic High blood pressure chronic [facility] Work Phone: Evaluation note* Diagnosis Onset Date Resolution Status High blood pressure chronic Acute pharyngitis acute [facility] Work Phone: Evaluation note* Diagnosis Onset Date Resolution Status Acute pharyngitis acute Unintentional weight loss no neactive Diarrhea noneactive Essential hypertension nonea ctive Epigastric abdominal pain no neactive Osteoporosis [facility] Work Phone: Evaluation note* Diagnosis Onset Date Resolution Status Unintentional weight loss no neactive Diarrhea noneactive Essential hypertension nonea ctive Epigastric abdominal pain no neactive Osteoporosis [facility] Work Phone: Evaluation note* Diagnosis Gastroesophageal reflux disease, unspecified whether esophagitis present- Primary Diarrhea, unspecified type Fatty metamorphosis of liver Other chronic nonalcoholic liver disease [facility]* Diagnosis Onset Date Resolution Status Depression chronic Gastric reflux chronic High blood pressure chronic High cholesterol chronic Osteoporosis chronic Foot swelling noneactive Left foot pain noneactive Numbness and tingling of left leg noneactive [facility] Work Phone: Evaluation note* Diagnosis Abdominal pressure- Primary Abdominal pain, unspecified site Flank pain Abdominal pain, unspecified site documented in this encounter [facility]* Diagnosis Gastroesophageal reflux disease, unspecified whether esophagitis present Postprandial bloating Flatulence, eructation, and gas pain documented in this encounter [facility]* Diagnosis Diarrhea, unspecified type Postprandial bloating Flatulence, eructation, and gas pain History of colonic polyps Personal history of colonic polyps documented in this encounter [facility] note* Diagnosis Onset Date Resolution Status Admit Date Shortness of breath acute Septe 2024 8:52am Depression chronic October 8:52am High blood pressure chronic Septe 2024 8:52am High cholesterol chronic Septembe r 2024 8:52am [facility] Work Phone: Progress note Author Jeancarlos Sanchez [facility] Note Date/Time November 01, 2024 9:39am [facility] [address] [place] [address] OFFICE VISIT Date of Service: 11/01/24 MR#: [id number] Acct: [id number] Name: KATYA LAMB JANNA Rep #: [id number] : 1955 Provider: Dr. Bandar Sanchez, DO Age/Sex: 69/F Location: [facility] Status: Signed Intake Vital Signs 05/03/24 08:53 11/01/24 08:58 Height 5 ft 8 in 5 ft 8 in Weight: 218 lb 2 oz BMI 33.1 BP 124/68 H Blood Pressure Location Lt brachial Position Sitting Respiration 16 Pulse 85 Pulse Source Monitor Temp 96.8 F L Temp Source Temporal Pulse Oximetry (%) 97 Oxygen Delivery Method room air Intake Visit Reasons: 6 month follow up + medication Chief Complaint: fu Hammerer Helper Required: No Accompanied by: Self Is patient in pain?: No Allergies sulfamethoxazole (From Bactrim) Allergy (Verified 11/01/24 08:54) Hives trimethoprim (From Bactrim) Allergy (Verified 11/01/24 08:54) Hives morphine Adverse Reaction (Verified 11/01/24 08:54) Low blood pressure Medications ?Medication ?Instructions ?Recorded ?Confirmed ?Type carvedilol 3.125 mg tablet (Coreg) 3.125 mg PO DAILY # 90 tabs 11/01/24 11/01/24 Rx lisinopril 40 mg tablet 40 mg PO DAILY #90 tabs 10/1111/01/24 Rx lorazepam 1 mg tablet 1 mg PO QHS PRN anxiety #90 tabs 11/01/24 11/01/24 Rx pantoprazole 40 mg tablet,delayed 40 mg PO QHS #90 TAB LETS 11/01/24 11/01/24 Rx release sertraline 100 mg tablet 100 mg PO DAILY #90 TABLETS 11/01/24 11/01/24 Rx simvastatin 20 mg tablet 20 mg PO QHS #90 tabs 11/01/24 Rx Have you fallen in the past year?: No Nurse's Note: doing well [facility] Medical History Influenza A High cholesterol High blood pressure Chronic headaches Depression Surgical History History of colonoscopy History of orthopedic surgery History of tubal ligation History of gynecologic surgery Family History Mother Diabetes Heart disease Hypertension Myocardial infarction Father Myocardial infarction Brother Hypertension Diabetes Sister Diabetes Hypertension Grandfather Alzheimer's dementia Cancer Grandmother Fabiana Gehrigs disease Grandfather Heart disease Aunt Breast cancer Social History Smoking Status: Former smoker alcohol intake: never substance use type: does not use what type of physical activity do you participate in: none HPI HPI Chief Complaint: fu Details: KATYA LAMB, is a 69 F who presents to the office today for a routine six month check up she feels well but she has been more tired and short of breath than usual. She has 2 sisters who have had triple bypass surgeries and she is concerned that she may have some cardiac problems that have gone undetected at this point. ROS Const Constitutional: No body ache, excessive sweating, fatigue, fever(s), frequent falls, headache(s), snoring, weakness, weight change, sleep problems or change in appetite Eyes Eyes: No blurry vision, change in vision, eye pain or Light sensitivity ENT ENT: No abnormal hearing, ear or mastoid pain, tinnitus, nasal congestion, headache(s), neck pain or sore throat Resp Respiratory: No cough, shortness of breath, snoring or wheezing Cardio Cardiology: No chest pain at rest, chest pain with exertion, excessive sweating,shortness of breath, dyspnea on exertion, lightheadedness, orthopnea or palpitations Gastro GI: No abdominal pain, change in bowel habits, constipation, cramping, diarrhea,nausea/dyspepsia or vomiting Genitourinary-Female: No burning urination, painful urination, urinary incontinence, urinary frequency, blood in urine, abnormal periods or pelvic pain Musc Musculoskeletal: No abnormal gait, joint pain, back pain, limited range of motion, neck pain, numbness, stiffness, tingling or Arthritis Skin Skin: No dry skin, redness, lesions, itchy eyes, rash or wounds Neuro Neurology: No abnormal gait, abnormal hearing, abnormal speech, dizziness, weakness, frequent falls, headache(s), memory loss, numbness or tingling Psych Psychiatric: No anxiety, No change in appetite, No depression, No memory loss and No Thoughts of harming yourself/Others Endo Endocrine: No cold intolerance, excessive sweating, fatigue, flushing, heat intolerance, increased thirst/drinking, increased hunger or weight change Aller/Imm Allergy/Immunologic: No itchy eyes, seasonal allergy symptoms, hives or wheezing [place]/Lymp Hematologic/Lymphatic: No easy bleeding, easy bruising or enlarged lymph nodes Exam Const General: cooperative and no acute distress Nutritional Appearance: overweight HENMT Head: normal to inspection Ears: hearing grossly normal bilaterally and TM's normal bilaterally Nose: external nose normal Face and sinus: sinus tenderness maxillary Mouth: oral mucosae normal Throat: posterior oropharynx normal Neck Neck: normal visual inspection Resp Effort & Inspection: normal respiratory effort Auscultation: Bilateral: Clear to Auscultation Cardio Rate: regular rate Rhythm: regular rhythm Skin General: no rashes or lesions noted Psych Appearance: grossly normal Mood: congruent mood Affect: normal affect Speech and Movement: speech and movement normal Attitude: cooperative Thought Content: normal Judgment: judgment good Coding Level of Care Code Off vis,est,level 4 Diagnoses Primary hypertension I10 Hypertension type: primary hypertension Reactive depression F32.9 Depression Type: reactive depression High cholesterol E78.00 Shortness of breath R06.02 Assessment and Plan Assessment and Plan (1) High blood pressure: Status: Chronic Qualifiers: Hypertension type: primary hypertension Qualified Code(s): I10 - Essential (primary) hypertension Plan: Her blood pressure is well-controlled. Her resting heart rate is 85. (2) Depression: Status: Chronic Qualifiers: Depression Type: reactive depression Qualified Code(s): F32.9 - Major depressive disorder, single episode, unspecified Plan: Patient is coping well with the loss as she has had, and really does not feel depressed at all. (3) High cholesterol: Status: Chronic Plan: She continues to take her statin. (4) Shortness of breath: Status: Acute Plan: Because she has a history of elevated cholesterol and a strong family history ofheart disease, as well as she is recently feeling more fatigued and short of breath I am going to get a cardiac calcium scoring. If she scores high then I am going to go ahead and stress test or if she scores low we will just continue with the medication she is on. Orders: Orders SCRN MAMM (CAD)W/MAIA BILAT Today Cardiac Calcium Scoring Today R06.02 - Shortness of breath Medications: Refilled carvedilol (Coreg) must administer with a meal/food 3.125 mg PO DAILY 90 tabs 3RF lisinopril 40 mg PO DAILY 90 tabs 3RF pantoprazole 40 mg PO QHS 90 TABLETS 1RF simvastatin 20 mg PO QHS 90 tabs 3RF lorazepam 1 mg PO QHS PRN 90 tabs 1RF anxiety Plan Details Follow Up: 6 Months Clinical Quality Measures Falls Risk Screening/Assistive Devices Have you fallen in the past year?: No 11/01/24 0941 <Electronically signed by Jeancarlos benavides DO> Date _ Jeancarlos Sanchez DO Cosigner Signature: Date (if applicable) CC: ~ [facility] Work Phone: Reason for referral (narrative)* Outpatient Procedure (Routine) - Closed Specialty Diagnoses / Procedures Referred By Anthony you Referred To Contact [facility] Diagnoses Gastroesophageal reflux disease, unspecified whether esophagitis present Postprandial bloating Procedures EGD DIAGNOSTIC ESOPHAGOGASTRODUODENOSC OPY TRANSORAL DIAGNOSTIC Patti Dallas PA-C [address] [facility] [place] [address] [facility] [place] [address] [place] [address] Referral ID Status Reason Start Date Expiration Date V isits Requested Visits Authorized [id number] Closed Auto-Generate d Referral 08/11/2022 08/12/2023 1 1 [facility] for referral (narrative)* Outpatient Procedure (Routine) - Closed Specialty Diagnoses / Procedures Referred By Anthony t Referred To Contact [facility] Diagnoses Diarrhea, unspecified type Postprandial bloating History of colonic polyps Procedures COLONOSCOPY DIAGNOSTIC COLONOSCOPY FLX DX W/COLLJ SPEC WHEN PFPatti Tinajero PA-C [address] [place] [address] [facility] [place] [address] [place] [address] Referral ID Status Reason Start Date Expiration Date V isits Requested Visits Authorized [id number] Closed Auto-Generate d Referral 08/11/2022 08/12/2023 1 1 [facility] for referral (narrative)No [facility] for [facility] Work Phone: Reason for visit Narrative* Outpatient Procedure (Routine) - Closed Specialty Diagnoses / Procedures Referred By Anthony t Referred To Contact [facility] Diagnoses Gastroesophageal reflux disease, unspecified whether esophagitis present Postprandial bloating Procedures EGD DIAGNOSTIC ESOPHAGOGASTRODUODENOSC OPY TRANSORAL DIAGNOSTIC Patti Dallas PA-C [address] [place] [address] [facility] [place] [address] [place] [address] Referral ID Status Reason Start Date Expiration Date V isits Requested Visits Authorized [id number] Closed Auto-Generate d Referral 08/11/2022 08/12/2023 1 1 [facility] for visit Narrative* Outpatient Procedure (Routine) - Closed Specialty Diagnoses / Procedures Referred By Anthony t Referred To Contact [facility] Diagnoses Diarrhea, unspecified type Postprandial bloating History of colonic polyps Procedures COLONOSCOPY DIAGNOSTIC COLONOSCOPY FLX DX W/COLLJ SPEC WHEN Patti Cheng PA-C [address] [place] [address] [facility] [place] [address] [place] [address] Referral ID Status Reason Start Date Expiration Date V isits Requested Visits Authorized [id number] Closed Auto-Generate d Referral 08/11/2022 08/12/2023 1 1 [facility] Chief Complaint and Reason for Visit Chief Complaint COVID TEST 6 M FU SCREENING Reason for Visit Depression High blood pressure Chief Complaint BP issues CONCERN FOR STREP THROAT bp check accidental OD DIARRHEA Reason for Visit High blood pressure Acute pharyngitis Chief Complaint CONCERN FOR STREP TH ROAT bp check accidental OD DIARRHEA Acute - extreme dirrhea/acid reflux PROLIA Abnormal weight loss Reason for Visit Acute pharyngitis Unintentional weight loss Diarrhea Essential hypertension Epigastric abdominal pain Osteoporosis Chief Complaint bp check accidental OD DIARRHEA Acute - extreme dirrhea/acid reflux PROLIA Abnormal weight loss Reason for Visit Unintentional weight loss Diarrhea Essential hypertension Epigastric abdominal pain Osteoporosis Chief Complaint FOLLOW UP ACUTE SWOLLEN AND BRUISED FOOT E-ORDER Reason for Visit Depression Gastric reflux High blood pressure High cholesterol Osteoporosis Foot swelling Left foot pain Numbness and tingling of left leg Chief Complaint Admit Date prolia February 25, 2024 8 :53am SINUS INFECTION April 06, 2024 1:53pm 6 m fu May 03, 2024 8:4 9am Reason for Visit Admit Date Osteoporosis February 25, 2024 8 :53am Sinusitis, acute maxillary March 1:53pm Depression May 03, 2024 8:4 9am High blood pressure May 03, 2024 8:4 9am High cholesterol May 03, 2024 8:4 9am Chief Complaint Admit Date RED/SORE BEHIND L EAR May 28, 2024 9 :11am PROLIA-$0 September 06, 2024 1:44 pm Reason for Visit Admit Date Cellulitis of skin May 28, 2024 9:1 1am Chief Complaint Admit Date PROLIA-$0 September 06, 2024 1:44 pm 6 month follow up + medication November 01, 2024 8:52am Reason for Visit Admit Date Shortness of breath November 01, 2024 8:52am Depression November 01, 2024 8:52am High blood pressure November 01, 2024 8:52am High cholesterol November 01, 2024 8:52am Family History No Family History Records Found Relationship Condition Age at Onset Recorded Date/T ruthie mother Diabetes mellitus Unknown Cardiac disease Unknown Hypertension Unknown Myocardial infarction Unknown father Myocardial infarction Unknown brother Hypertension Unknown Diabetes mellitus Unknown sister Diabetes mellitus Unknown grandfather Alzheimer's disease Unknown Malignant neoplasm Unknown grandmother Amyotrophic lateral sclerosis Unknown grandfather Cardiac disease Unknown aunt Malignant neoplasm of breast Unknown Advance Directives No Advanced Directives Records Found Advance Directive Response Recorded Date/ Time Advance Directives Yes May 10 2:46pm Living Will Yes May 10, 2020 2:46pm Power of Tip Bander Yes May 10 2:46pm Advance Directive Response Recorded Date/ Time Advance Directives Yes May 10 2:46pm Living Will No August 02, 2022 11:28am Power of Tip Bander No August 02 11:28am Advance Directive Response Recorded Date/ Time Advance Directives Yes May 10 1:46pm Living Will No August 02, 2022 10:28am Power of Tip Bander No August 02 10:28am Advance Directive Response Recorded Date/ Time Living Will No August 05, 2023 2:24pm Do you have a Healthcare Power of Tip Bander? No August 05, 2023 2:24pm Advance Directives Yes April 15 7:00am Advance Directive Response Recorded Date/ Time Advance Directives Yes April 15 7:00am Summary Purpose Additional Source Comments Goals (unrecognized section and content) Goals may be documented in a n alternate sectionGoals may be documented in an alternate sectionGoals may be documented in an alternate sectionGoals may be documented in an alternate sectionGoals may be documented in an alternate sectionGoals may be documented in an alternate sectionGoals may be documented in an alternate sectionGoals may be documented in an alternate section Care Teams (unrecognized sec tion and content) Team Status: Active Member Role Status Dates Dr. Jeancarlos Sanchez , DO Family Provider Active Dr. Jeancarlos Sanchez , DO Primary Care Provider Active Team Status: Inactive Member Role Status Dates Dr. Jeancarlos Sanchez , DO Primary Care Pr ovider, Attending Provider, Referring Provider Active Team Status: Inactive Member Role Status Dates Dr. Jeancarlos Sanchez , DO Primary Care Provider, Referr ing Provider Active Delvin Strong PA, PA Attending Provider Active Team Status: Inactive Member Role Status Dates Dr. Jeancarlos Sanchez , DO Primary Care Provider Active Juan Palma [employer] COUNSEL[employer], [employer] COUNSELOR-C Attending Provider, Referring Prov ider Active Team Status: Inactive Member Role Status Dates Dr. Jeancarlos Sanchez , DO Primary Care Provider Active Dr. Yaya Mariscal , DO Attending Provider, Emergency P cherelle Active Team Status: Inactive Member Role Status Dates Dr. Jeancarlos Sanchez , DO Primary Care Provider Active Dr. Naeem Jeronimo , DO Emergency Provider Active Team Status: Inactive Member Role Status Dates Dr. Jeancarlos Sanchez , DO Primary Care Provider, Referr ing Provider Active Dr. Dustin Ruiz MD Attending Provider Active Team Status: Inactive Member Role Status Dates Dr. Jeancarlos Sanchez , DO Primary Care Provider, Referr ing Provider Active Dr. Opal Staton MD Attending Provider Active Team Status: Inactive Member Role Status Dates Dr. Jeancarlos Sanchez , DO Primary Care Provider Active Dr. Naeem Jeronimo , DO Attending Provider, Emergency Provider Active Team Status: Active Member Role Status Dates Dr. Jeancarlos Sanchez , DO Primary Care Provider Active Dr. Opal Staton MD Attending Provider, Referring Provider Active Team Status: Inactive Member Role Status Dates Dr. Jeancarlos Sanchez , DO Primary Care Provider Active ROSALES OCASIO Attending Provider, Referring Provide r Active Director Of Photography Relationship Specialty Start Date End Date Opal Staton MD [address] [place] [address] PCP - General Internal Medicine 08/07/22 Team Status: Inactive Member Role Status Dates Dr. Jeancarlos Sanchez , DO Primary Care Provider Active Dr. Opal Staton MD Attending Provider, Referring Provider Active Director Of Photography Relationship Specialty Start Date End Date Opal Staton MD [address] [place] [address] PCP - General Internal Medicine 08/07/22 Director Of Photography Relationship Specialty Start Date End Date Opal Staton MD [address] [place] [address] PCP - General Internal Medicine 08/07/22 Director Of Photography Relationship Specialty Start Date End Date Opal Staton MD [address] [place] [address] PCP - General Internal Medicine 08/07/22 Director Of Photography Relationship Specialty Start Date End Date Opal Staton MD [address] [place] [address] PCP - General Internal Medicine 08/07/22 Director Of Photography Relationship Specialty Start Date End Date Opal Staton MD [address] [place] [address] PCP - General Internal Medicine 08/07/22 Director Of Photography Relationship Specialty Start Date End Date Opal Staton MD [address] [place] [address] PCP - General Internal Medicine 08/07/22 Team Status: Inactive Member Role Status Dates Dr. Jeancarlos Sanchez , Primary Care Provider Active Start: February 25, 2024 End: February 25, 2024 Dr. Jeancarlos Sanchez , Referring Provider Active Start: February 25, 2024 End: February 25, 2024 Dr. Opal Staton MD Attending Provider Active Start: February 25, 2024 End: February 25, 2024 Team Status: Inactive Member Role Status Dates Dr. Jeancarlos Sanchez , Primary Care Provider Active Start: April 06, 2024 End: April 06, 2024 Dr. Jeancarlos Sanchez , Attending Provider Active Start: April 06, 2024 End: April 06, 2024 Dr. Jeancarlos Sanchez , Referring Provider Active Start: April 06, 2024 End: April 06, 2024 Team Status: Inactive Member Role Status Dates Dr. Jeancarlos Sanchez DO Primary Care Provider Active Start: May 03, 2024 End: May 03, 2024 Dr. Jeancarlos Sanchez , Attending Provider Active Start: May 03, 2024 End: May 03, 2024 Dr. Jeancarlos Sanchez , Referring Provider Active Start: May 03, 2024 End: May 03, 2024 Team Status: Active Member Role/Relationship Status Dates Dr. Jeancarlos Sanchez DO Family Provider Active Dr. Jeancarlos Sanchez DO Primary Care Provider Active Team Status: Inactive Member Role/Relationship Status Dates Dr. Jeancarlos Sanchez DO Primary Care Provider Active Start: May 28, 2024 End: May 28, 2024 Dr. Jeancarlos Sanchez DO Referring Provider Active Start: May 28, 2024 End: May 28, 2024 Kelle Mota NP-C Attending Provider Active Start: May 28, 2024 End: May 28, 2024 Team Status: Inactive Member Role/Relationship Status Dates Dr. Jeancarlos Sanchez DO Primary Care Provider Active Start: September 06, 2024 End: September 06, 2024 Dr. Jeancarlos Sanchez DO Referring Provider Active Start: September 06, 2024 End: September 06, 2024 BIM NURSE Attending Provider Active Start: 2024 End: September 06, 2024 Team Status: Active Member Role/Relationship Status Dates Dr. Jeancarlos Sanchez DO Primary care physician Active Team Status: Inactive Member Role/Relationship Status Dates Dr. Jeancarlos Sanchez DO Primary care physician Active Start: September 06, 2024 End: September 06, 2024 Dr. Jeancarlos Sanchez DO Referring Provider Active Start: September 06, 2024 End: September 06, 2024 Shital Braden NP-C Attending physician Active Start: September 06, 2024 End: September 06, 2024 Team Status: Inactive Member Role/Relationship Status Dates Dr. Jeancarlos Sanchez DO Primary care physician Active Start: November 01, 2024 End: November 01, 2024 Dr. Jeancarlos Sanchez DO Attending physician Active Start: November 01, 2024 End: November 01, 2024 Dr. Jeancarlos Sanchez DO Referring Provider Active Start: November 01, 2024 End: November 01, 2024 Source Comments (unrecognize d section and content) In the event this informatio n is protected by the Federal Confidentiality of Alcohol and Drug Abuse Patient Records regulations: The Federal rules restrict any use of the information to criminally investigate or prosecute any alcohol or drug abuse patient.[facility] the event this information is protected by the Federal Confidentiality of Alcohol and Drug Abuse Patient Records regulations: The Federal rules restrict any use of the information to criminally investigate or prosecute any alcohol or drug abuse patient.[facility] the event this information is protected by the Federal Confidentiality of Alcohol and Drug Abuse Patient Records regulations: The Federal rules restrict any use of the information to criminally investigate or prosecute any alcohol or drug abuse patient.[facility] the event this information is protected by the Federal Confidentiality of Alcohol and Drug Abuse Patient Records regulations: The Federal rules restrict any use of the information to criminally investigate or prosecute any alcohol or drug abuse patient.[facility] the event this information is protected by the Federal Confidentiality of Alcohol and Drug Abuse Patient Records regulations: The Federal rules restrict any use of the information to criminally investigate or prosecute any alcohol or drug abuse patient.[facility] the event this information is protected by the Federal Confidentiality of Alcohol and Drug Abuse Patient Records regulations: The Federal rules restrict any use of the information to criminally investigate or prosecute any alcohol or drug abuse patient.[facility] the event this information is protected by the Federal Confidentiality of Alcohol and Drug Abuse Patient Records regulations: The Federal rules restrict any use of the information to criminally investigate or prosecute any alcohol or drug abuse patient.[facility] Reason for Visit (unrecogniz ed section and content) Reason Comments Results Reason Comments Recheck Colon/EGD Reason Comments Abdominal Pain lower abdominal pres sure, loose stools x Thursday, fever Thursday only INFORMATION SOURCE (unrecogn ized section and content) DATE CREATED AUTHOR 08/09/2023 [facility] DATE CREATED AUTHOR 'S SWEETIE ATION 11/13/2024 [facility] FOR RECORDS PERTAINING TO PATIENTS WHO ARE OR HAVE BEEN ENROLLED IN A CHEMICAL DEPENDENCY/SUBSTANCEABUSE PROGRAM, SOME INFORMATION MAY BE OMITTED. This clinical summary was aggregated from multiple sources. Caution should be exercised in using it in the provision of clinical care. This summary normalizes information from multiple sources, and as a consequence, information in this document may materially change the coding, format and clinical context of patient data. In addition, data may be omitted in some cases. CLINICAL DECISIONS SHOULD BE BASED ON THE PRIMARY CLINICAL RECORDS. [facility] [employer] [facility]. provides no warranty or guarantee of the accuracy or completeness of information in this document.
--- NOTE | 2024-11-25 07:30 | BI_ITS ---
EXAM: SCRN MAMM (CAD)W/MAIA BILAT DATE: 11/25/2024 CLINICAL HISTORY: F, Age 69 y/o , SCREEN TECHNIQUE: Procedure Code: [id number] Modality: MG Procedure: SCRN MAMM (CAD)W/MAIA BILAT COMPARISON: Prior exam(s) dated 11/20/2023, 05/21/2021. FINDINGS: TISSUE DENSITY: There are scattered areas of fibroglandular density. Bilateral Breast Mammographic Findings: No significant masses, calcifications or other abnormalities are identified. BI/SCRN MAMM (CAD)W/MAIA BILAT IMPRESSION: There is no mammographic evidence of malignancy. OVERALL FINAL ASSESSMENT BI-RADS 1: NEGATIVE. RECOMMENDATION: Routine annual follow-up in 1 Year Additional Recommendation none A letter with findings and recommendations will be mailed to the patient. Reading Location: [id number]
== END | disposition home or self-care (01) ==
LOC: OPBI 07:17
PROVIDERS: PCP Family Medicine; Referring Provider Family Medicine; Visit Provider Family Medicine
DX: Z12.31 Encounter for screening mammogram for malignant neoplasm of breast (principal)
CPT/HCPCS: 77063; 77067